=== PATIENT | female | born 1980 | race Two or more races ===

== ENCOUNTER 2022-02-19 14:09 | Outpatient (REF) | payer MEDICARE, MEDICAID, SELFPAY ==
[2022-02-19 14:34] LABS: MANUAL DIFF FLAG NO
[2022-02-19 14:59] LABS: Basophils Percent Auto 0.5 % (0-2); Eosinophils Absolute Auto 0.1 X10*3/uL (0.0-0.4); Eosinophils Percent Auto 1.1 % (0-4); Hematocrit 35.4 % (37.0-47.0); Imm Gran Abs Auto 0.02 X10*3/uL (0.00-0.03); Imm Gran Pct Auto 0.3 % (0.0-0.4); Lymphocytes Absolute Auto 1.1 X10*3/uL (1.2-4.9); Lymphocytes Percent Auto 16.8 % (20-40); Mean Corpuscular HGB Conc 31.1 g/dl (31.0-35.0); Mean Corpuscular Hemoglobin 24.2 pg (27.0-33.0); Mean Corpuscular Volume 77.8 fL (80.0-98.0); Mean Platelet Volume 10.9 fL (9.4-12.3); Monocytes Absolute Auto 0.4 X10*3/uL (0.1-1.2); Monocytes Percent Auto 5.7 % (2-11); Neutrophils Absolute Auto 4.8 x10*3/uL (2.0-8.3); Neutrophils Percent Auto 75.6 % (45-73); Platelet Count 229 X10*3/uL (160-400); Red Blood Count 4.55 X10*6/uL (4.20-5.50); Red Cell Distribution Width 14.7 % (11.0-16.0); White Blood Count 6.3 X10*3/uL (4.8-10.8)
[2022-02-19 15:16] LABS: Appearance Urine Clear; Color Urine Yellow; Glucose Urine UA Negative (Negative); Leukocyte Esterase Urine Negative (Negative); Nitrite Urine Negative (Negative); Specific Gravity - Urine 1.015 (1.005-1.025); Urine Blood Negative (Negative); Urine Ketones Negative (Negative); Urine Protein Negative (Neg-Trace)
[2022-02-19 15:19] LABS: Bacteria Urine None Seen (None Seen); Hyaline Casts Urine 0-2 /LPF (0-2); RBC Urine 0-2 /HPF (0-2); Squamous Epithelial Cell Urine 0-2 /HPF (0-2); WBC Urine 0-5 /HPF (0-5)
[2022-02-19 15:27] LABS: Alanine Aminotransferase 37 U/L (0-31); Albumin Level 4.4 g/dL (3.5-5.0); Alkaline Phosphatase 65 U/L (39-117); Anion Gap 15 (12-20); Aspartate Amino Transferase 28 U/L (5-31); Bilirubin Total 0.3 mg/dL (0.0-1.0); Blood Urea Nitrogen 16 mg/dL (9-16); C Reactive Protein 1.06 mg/dL (< or = 0.50); Calcium 9.5 mg/dL (8.4-10.2); Carbon Dioxide 20 mmol/L (22-29); Chloride 109 mmol/L (96-108); Estimated Glomerular Filt Rate > 60; Glucose Random 91 mg/dL (60-115); Potassium 4.2 mmol/L (3.3-5.1); Sodium 140 mmol/L (135-145); Total Protein 7.3 g/dL (6.5-8.0); Uric Acid 3.8 mg/dL (2.4-5.7)
[2022-02-19 16:01] LABS: Erythrocyte Sedimentation Rate 38 MM/HR (0-20)
[2022-02-19 16:35] LABS: Creatinine Urine 73.39 mg/dL; Total Protein Urine Random < 7 mg/dL (<12)
[2022-02-20 04:51] LABS: HBS Num1 3.46 mIU/mL (0-7.99); HBc Num1 0.07 S/CO (0.00-0.79); HBsAGNum1 0.28 S/CO (0.00-0.99); HIV AB/AG Nonreactive (Nonreactive); HIV Num 1 0.04 S/CO (0.00-0.99); Hepatitis A Antibody IgM 0.53 Index (0-0.79); Hepatitis B Core Antibody Nonreactive (Nonreactive); Hepatitis B Surface Antigen Negative (Negative); ~HepC Num1 0.15 S/CO (0.00-0.79); ~Hepatitis A Antibody IgM Nonreactive (Nonreactive); ~Hepatitis B Surface Antibody NONREACTIVE (Nonreactive); ~Hepatitis C Antibody Nonreactive (Nonreactive)
[2022-02-20 18:07] LABS: Complement C3 151 mg/dL (83-193)
[2022-02-22 01:27] LABS: TS Negative Control Passed; TS Panel A 0; TS Panel B 0; TS Positive Control Passed; TSpotTB Negative (Negative)
[2022-02-23 22:11] LABS: Anti DNA DS Antibody 1 IU/mL; Antibody to SS-A Antigen <1.0 NEG AI (<1.0 NEG); Antibody to SS-B Antigen <1.0 NEG AI (<1.0 NEG); SM/Ribonucleoprotein Ab <1.0 NEG AI (<1.0 NEG); Scleroderma 70 Antibody <1.0 NEG AI (<1.0 NEG); Smith Protein <1.0 NEG AI (<1.0 NEG)
[2022-02-23 22:17] LABS: Anti-Centromere B Antibodies <1.0 NEG AI (<1.0 NEG)
[2022-02-23 22:37] LABS: PTT (LAC) Screen 33 sec (<=40)
[2022-02-24 12:32] LABS: Cardiolipin IgG Ab <2.0 GPL-U/mL; Cardiolipin IgM Ab <2.0 MPL-U/mL
[2022-02-24 12:48] LABS: IgA 186 mg/dL (47-310); IgG 978 mg/dL (600-1640); IgM 111 mg/dL (50-300)
[2022-02-24 18:11] LABS: Prot Elec - Alpha1 0.3 g/dL (0.2-0.3); Prot Elec - Alpha2 0.8 g/dL (0.5-0.9); Prot Elec - Beta 1 0.5 g/dL (0.4-0.6); Prot Elec - Beta 2 0.4 g/dL (0.2-0.5); Prot Elec - Gamma 0.9 g/dL (0.8-1.7)
[2022-02-24 21:12] LABS: Beta-2 Glycoprotein IgA <2.0 U/mL (<20.0); Beta-2 Glycoprotein IgG <2.0 U/mL (<20.0); Beta-2 Glycoprotein IgM 3.7 U/mL (<20.0)
[2022-02-25 14:23] LABS: DNAds, Crithidia Antibody Negative (Negative)
[2022-02-28 19:10] LABS: TPMT Activity 10
== END 2022-02-19 14:10 | disposition home or self-care (01) ==
LOC: HO.LAB 14:09
PROVIDERS: Visit Provider Student in an Organized Health Care Education/Training Program
DX: Z11.59 Encounter for screening for other viral diseases (principal); Z11.4 Encounter for screening for human immunodeficiency virus [HIV]; Z11.7 Encounter for testing for latent tuberculosis infection; M32.9 Systemic lupus erythematosus, unspecified; Z79.624 Long term (current) use of inhibitors of nucleotide synthesis; Z79.899 Other long term (current) drug therapy
CPT/HCPCS: 36415; 80053; 81001; 82550; 82657; 82784; 84156; 84165; 84550; 85025; 85597; 85613; 85652; 85730; 86038; 86140; 86146; 86147; 86160; 86225; 86235; 86255; 86334; 86481; 86704; 86706; 86709; 86803; 87340; 87389; 99212

== ENCOUNTER → 2022-03-26 10:06 | Outpatient (BNVA) | payer MEDICARE, MEDICAID, SELFPAY | PROVIDERS: PCP Family Medicine; Referring Provider Family Medicine; Visit Provider Student in an Organized Health Care Education/Training Program | DX: M32.9 Systemic lupus erythematosus, unspecified (principal); M79.7 Fibromyalgia; Z51.81 Encounter for therapeutic drug level monitoring; Z79.624 Long term (current) use of inhibitors of nucleotide synthesis; Z79.899 Other long term (current) drug therapy | CPT/HCPCS: 99212 ==

== ENCOUNTER → 2022-04-21 09:16 | Outpatient (REF) | payer MEDICARE, MEDICAID, SELFPAY ==
--- NOTE | 2022-04-21 09:19 | CA_ITS ---
Transthoracic Echocardiogram Patient (Last, First, Middle): Yesenia Burroughs, Gender: Female Date of : 1980 Age: 42 Procedure Date: 04/21/2022 Procedure Type: Transthoracic Echocardiogram Location: OP Height: 157.48 cm Weight: 93.9 kg BSA: 1.94 m2 Heart Rate: bpm BP: 115 / 75 mmHg Logistics Supply Officer: ABAD Referring MD: Myles Lyman MD Inspector Elevators: Artem Christopher MD Symptoms: R07.9 - Chest pain, unspecified Study Quality: Fair ECG Rhythm: Sinus Conclusions: - Essentially normal study Findings Left Ventricle Normal left ventricular size, thickness, and systolic function. The visually estimated ejection fraction is between 65-70%. Spectral Doppler is indicative of a normal filling pattern. Peak GLS is -20.1%, within normal limits. Right Ventricle There is normal right ventricular systolic function. Atria The left atrium is normal in size. Interatrial shunt cannot be excluded. The right atrium was not well visualized. Aortic Valve The aortic valve structure and function is likely normal. There is no aortic valve stenosis. There is no aortic valve regurgitation. Mitral Valve Likely normal mitral valve structure and function. There is no mitral valve regurgitation. There is no mitral valve stenosis. Pulmonic Valve The pulmonic valve was not well visualized. Tricuspid Valve The tricuspid valve was not well visualized. Tricuspid regurgitation envelope is inadequate for calculation of right ventricular systolic pressure. Normal right atrial pressure. Great Vessels All visible segments of the aorta are normal in size. The pulmonary artery was not well visualized. Venous The inferior vena cava is normal in size and collapses greater than 50% with inspiration. Pericardium/Pleural There is no evidence of pericardial effusion. Prior Study Comparison No prior study available for comparison. Measurements 2D Linear Measurements IVSd: 0.89 0.6-0.9/0.6-1.0 cm LVIDd: 4.99 3.9-5.3/4.2-5.9 cm LVIDd Index: 2.57 2.4-3.2/2.2-3.1 cm/m2 LVIDs: 2.99 2.0-3.6 cm LVPWd: 0.96 0.7-1.1 cm LA Diam: 3.60 2.7-3.8/3.0-4.0 cm LAIDs Index: 1.86 1.5-2.3 cm/m2 LV Mass: 203.30 67-162/88-224 g LV Mass Index: 104.79 43-95/49-115 g/m2 LVOT Diam: 2.00 3.0+(-)1.3 cm 2D Systolic Function EF 4C: 68.40 >55% EF 2C: 70.10 >55% EF BiP: 69.20 >55% Mitral Valve MV Pk E: 0.69 MV PK A: 0.72 MV Decel Time: 246.00 E/A: 1.00 E'Lateral: 10.70 E'Medial: 7.07 E/E' Med: 9.80 E/E' Lat: 6.50 PHT: 72.00 MVA PHT: 3.06 Decel [place]: 2.82 Aortic Valve AoV Pk Juanjose: 1.30 AoV Mn Juanjose: 0.99 AoV VTI: 0.28 AoV Pk Grad: 7.00 Aov Mn Grad: 4.00 LOUIE Cont.VTI: 2.31 LVOT LVOT Pk Juanjose: 0.93 LVOT Mn Juanjose: 0.58 LVOT VTI: 0.20 LVOT Pk Grad: 3.00 LVOT Mn Grad: 2.00 LVOT Diam: 2.00 LVOT Area: 3.14 Diastolic Function MV Pk E: 0.69 MV Pk A: 0.72 E/A: 1.00 E'Medial: 7.07 E/E' Med: 9.80 E' Laterial: 10.70 E/E' Lat: 6.50 Right Ventricle TAPSE (mm): 23.80 TVS' Juanjose: 12.30 Tricuspid Valve RA Press: 3.00 Great Vessels Aorta Sinus of Valsalva: 3.19 2.0-3.[address] [place]: 2.67 1.7-3.4 cm Ao Asc: 3.00 2.1-3.4 cm Updated in Other Vendor System with Status of Final Artem Christopher MD electronically signed on 04/22/2022 4:05:44 PM with status of Final
== END ==
LOC: HO.CARD 09:16
PROVIDERS: Visit Provider Student in an Organized Health Care Education/Training Program
DX: R07.9 Chest pain, unspecified (principal)
CPT/HCPCS: 93306; 93356

== ENCOUNTER 2022-04-28 11:01 | Outpatient (REF) | payer MEDICARE, MEDICAID, SELFPAY ==
[2022-04-28 11:19] LABS: MANUAL DIFF FLAG NO
[2022-04-28 11:47] LABS: Basophils Percent Auto 0.8 % (0-2); Eosinophils Absolute Auto 0.1 X10*3/uL (0.0-0.4); Eosinophils Percent Auto 1.8 % (0-4); Hemoglobin 10.9 g/dl (12.0-16.0); Imm Gran Abs Auto 0.01 X10*3/uL (0.00-0.03); Imm Gran Pct Auto 0.3 % (0.0-0.4); Lymphocytes Percent Auto 25.5 % (20-40); Mean Corpuscular HGB Conc 31.1 g/dl (31.0-35.0); Mean Corpuscular Volume 76.9 fL (80.0-98.0); Monocytes Absolute Auto 0.2 X10*3/uL (0.1-1.2); Monocytes Percent Auto 5.8 % (2-11); Neutrophils Absolute Auto 2.5 x10*3/uL (2.0-8.3); Neutrophils Percent Auto 65.8 % (45-73); Platelet Count 283 X10*3/uL (160-400); Red Blood Count 4.55 X10*6/uL (4.20-5.50); Red Cell Distribution Width 15.9 % (11.0-16.0); White Blood Count 3.8 X10*3/uL (4.8-10.8)
[2022-04-28 12:26] LABS: Erythrocyte Sedimentation Rate 28 MM/HR (0-20)
[2022-04-28 13:02] LABS: Alanine Aminotransferase 37 U/L (0-31); Albumin Level 4.1 g/dL (3.5-5.0); Alkaline Phosphatase 64 U/L (39-117); Anion Gap 12 (12-20); Aspartate Amino Transferase 27 U/L (5-31); Bilirubin Total 0.3 mg/dL (0.0-1.0); Blood Urea Nitrogen 14 mg/dL (9-16); C Reactive Protein 0.75 mg/dL (< or = 0.50); Calcium 9.4 mg/dL (8.4-10.2); Carbon Dioxide 24 mmol/L (22-29); Chloride 107 mmol/L (96-108); Estimated Glomerular Filt Rate > 60; Glucose Random 143 mg/dL (60-115); Iron 44 mcg/dL (30-160); Percent Iron Saturation 13 % (15-50); Potassium 4.5 mmol/L (3.3-5.1); Sodium 138 mmol/L (135-145); Total Iron Binding Capacity 332 mcg/dL (228-428); Total Protein 6.9 g/dL (6.5-8.0); Unsaturated Iron Binding 288 ug/dL
[2022-04-28 13:08] LABS: Ferritin 11 ng/mL (10-250)
[2022-05-05 09:40] LABS: Transferrin 318 mg/dL (188-341)
== END 2022-04-28 11:02 | disposition home or self-care (01) ==
LOC: HO.LAB 11:01
PROVIDERS: PCP Family Medicine; Visit Provider Student in an Organized Health Care Education/Training Program
DX: D64.9 Anemia, unspecified (principal); M32.9 Systemic lupus erythematosus, unspecified; Z79.624 Long term (current) use of inhibitors of nucleotide synthesis
CPT/HCPCS: 36415; 80053; 82728; 83540; 84466; 85025; 85652; 86140

== ENCOUNTER 2022-07-09 09:47 | Outpatient (REF) | payer MEDICARE, MEDICAID, SELFPAY ==
[2022-07-09 10:58] LABS: MANUAL DIFF FLAG NO
[2022-07-09 12:13] LABS: Basophils Percent Auto 0.5 % (0-2); Eosinophils Absolute Auto 0.1 X10*3/uL (0.0-0.4); Eosinophils Percent Auto 1.8 % (0-4); Hemoglobin 11.5 g/dl (12.0-16.0); Imm Gran Abs Auto 0.02 X10*3/uL (0.00-0.03); Imm Gran Pct Auto 0.4 % (0.0-0.4); Lymphocytes Absolute Auto 1.1 X10*3/uL (1.2-4.9); Lymphocytes Percent Auto 20.7 % (20-40); Mean Corpuscular HGB Conc 31.1 g/dl (31.0-35.0); Mean Corpuscular Hemoglobin 24.3 pg (27.0-33.0); Mean Corpuscular Volume 78.2 fL (80.0-98.0); Mean Platelet Volume 11.8 fL (9.4-12.3); Monocytes Absolute Auto 0.4 X10*3/uL (0.1-1.2); Neutrophils Absolute Auto 3.8 x10*3/uL (2.0-8.3); Neutrophils Percent Auto 68.6 % (45-73); Platelet Count 255 X10*3/uL (160-400); Red Blood Count 4.73 X10*6/uL (4.20-5.50); Red Cell Distribution Width 17.5 % (11.0-16.0); White Blood Count 5.5 X10*3/uL (4.8-10.8)
[2022-07-09 12:38] LABS: Appearance Urine Clear; Color Urine Yellow; Glucose Urine UA Negative (Negative); Leukocyte Esterase Urine Negative (Negative); Nitrite Urine Negative (Negative); PH 5.5 (5.0-9.0); Urine Blood Negative (Negative); Urine Ketones Negative (Negative); Urine Protein Negative (Neg-Trace)
[2022-07-09 12:42] LABS: Troponin-I High Sensitivity < 3.5 ng/L (<3.5-17.0)
[2022-07-09 12:44] LABS: Bacteria Urine None Seen (None Seen); Hyaline Casts Urine 0-2 /LPF (0-2); RBC Urine 0-2 /HPF (0-2); Squamous Epithelial Cell Urine 0-2 /HPF (0-2); WBC Urine 0-5 /HPF (0-5)
[2022-07-09 12:50] LABS: Alanine Aminotransferase 30 U/L (0-31); Albumin Level 4.3 g/dL (3.5-5.0); Alkaline Phosphatase 50 U/L (39-117); Anion Gap 13 (12-20); Aspartate Amino Transferase 22 U/L (5-31); Bilirubin Total 0.3 mg/dL (0.0-1.0); Blood Urea Nitrogen 18 mg/dL (9-16); Calcium 9.1 mg/dL (8.4-10.2); Carbon Dioxide 21 mmol/L (22-29); Chloride 109 mmol/L (96-108); Estimated Glomerular Filt Rate > 60; Glucose Random 109 mg/dL (60-115); Potassium 4.6 mmol/L (3.3-5.1); Sodium 138 mmol/L (135-145)
[2022-07-09 12:52] LABS: Erythrocyte Sedimentation Rate 33 MM/HR (0-20)
[2022-07-09 13:08] LABS: Creatinine Urine 39.73 mg/dL; Total Protein Urine Random < 7 mg/dL (<12)
[2022-07-11 12:54] LABS: Complement C3 168 mg/dL (83-193)
[2022-07-13 12:19] LABS: Anti DNA DS Antibody <1 IU/mL
== END 2022-07-09 09:48 | disposition home or self-care (01) ==
LOC: HO.LAB 09:47
PROVIDERS: Student in an Organized Health Care Education/Training Program; PCP Family Medicine; Referring Provider Family Medicine; Visit Provider Internal Medicine Cardiovascular Disease
DX: R07.9 Chest pain, unspecified (principal); M32.9 Systemic lupus erythematosus, unspecified; Z79.624 Long term (current) use of inhibitors of nucleotide synthesis
CPT/HCPCS: 36415; 80053; 81001; 84156; 84484; 85025; 85652; 86140; 86160; 86225; 93005; 99202

== ENCOUNTER → 2022-07-24 09:43 | Outpatient (BNVA) | payer MEDICARE, MEDICAID, SELFPAY | PROVIDERS: PCP Family Medicine; Visit Provider Student in an Organized Health Care Education/Training Program | DX: M32.9 Systemic lupus erythematosus, unspecified (principal); R21 Rash and other nonspecific skin eruption; M79.7 Fibromyalgia; Z51.81 Encounter for therapeutic drug level monitoring; Z79.624 Long term (current) use of inhibitors of nucleotide synthesis; Z79.899 Other long term (current) drug therapy | CPT/HCPCS: 99212 ==

== ENCOUNTER 2022-12-15 14:06 | Outpatient (REF) | payer MEDICARE, MEDICAID, SELFPAY ==
[2022-12-15 14:21] LABS: MANUAL DIFF FLAG NO
[2022-12-15 14:44] LABS: Basophils Percent Auto 0.4 % (0-2); Eosinophils Absolute Auto 0.1 X10*3/uL (0.0-0.4); Eosinophils Percent Auto 1.8 % (0-4); Hematocrit 35.2 % (37.0-47.0); Hemoglobin 11.4 g/dl (12.0-16.0); Imm Gran Abs Auto 0.01 X10*3/uL (0.00-0.03); Imm Gran Pct Auto 0.1 % (0.0-0.4); Lymphocytes Absolute Auto 1.2 X10*3/uL (1.2-4.9); Lymphocytes Percent Auto 17.8 % (20-40); Mean Corpuscular HGB Conc 32.4 g/dl (31.0-35.0); Mean Corpuscular Hemoglobin 24.7 pg (27.0-33.0); Mean Corpuscular Volume 76.2 fL (80.0-98.0); Mean Platelet Volume 11.7 fL (9.4-12.3); Monocytes Absolute Auto 0.4 X10*3/uL (0.1-1.2); Monocytes Percent Auto 6.4 % (2-11); Neutrophils Absolute Auto 4.9 x10*3/uL (2.0-8.3); Neutrophils Percent Auto 73.5 % (45-73); Platelet Count 240 X10*3/uL (160-400); Red Blood Count 4.62 X10*6/uL (4.20-5.50); Red Cell Distribution Width 16.3 % (11.0-16.0); White Blood Count 6.7 X10*3/uL (4.8-10.8)
[2022-12-15 15:18] LABS: Alanine Aminotransferase 25 U/L (0-31); Alkaline Phosphatase 59 U/L (39-117); Anion Gap 11 (12-20); Aspartate Amino Transferase 21 U/L (5-31); Bilirubin Total 0.3 mg/dL (0.0-1.0); Blood Urea Nitrogen 20 mg/dL (9-16); Carbon Dioxide 23 mmol/L (22-29); Chloride 112 mmol/L (96-108); Estimated Glomerular Filt Rate > 60; Glucose Random 129 mg/dL (60-115); Potassium 4.1 mmol/L (3.3-5.1); Sodium 142 mmol/L (135-145); Total Protein 7.2 g/dL (6.5-8.0)
[2022-12-15 15:25] LABS: Erythrocyte Sedimentation Rate 34 MM/HR (0-20)
[2022-12-16 12:53] LABS: Anti DNA DS Antibody <1 IU/mL
[2022-12-17 15:38] LABS: Complement C3 179 mg/dL (83-193)
== END 2022-12-15 14:07 | disposition home or self-care (01) ==
LOC: HO.LAB 14:06
PROVIDERS: PCP Family Medicine; Visit Provider Student in an Organized Health Care Education/Training Program
DX: M32.9 Systemic lupus erythematosus, unspecified (principal)
CPT/HCPCS: 36415; 80053; 85025; 85652; 86140; 86160; 86225

== ENCOUNTER 2022-12-16 16:43 | Outpatient (REF) | payer MEDICARE, MEDICAID, SELFPAY ==
[2022-12-16 17:32] LABS: Appearance Urine Clear; Color Urine Yellow; Glucose Urine UA Negative (Negative); Leukocyte Esterase Urine Negative (Negative); Nitrite Urine Negative (Negative); Specific Gravity - Urine <= 1.005 (1.005-1.025); UMIC TRIGGER UA YES; Urine Blood Moderate (2+) (Negative); Urine Ketones Negative (Negative); Urine Protein Negative (Neg-Trace)
[2022-12-16 17:45] LABS: Creatinine Urine 22.65 mg/dL; Total Protein Urine Random < 7 mg/dL (<12)
[2022-12-16 17:59] LABS: Bacteria Urine None Seen (None Seen); Hyaline Casts Urine 0-2 /LPF (0-2); RBC Urine 0-2 /HPF (0-2); Squamous Epithelial Cell Urine 0-2 /HPF (0-2); WBC Urine 0-5 /HPF (0-5)
== END 2022-12-16 16:44 | disposition home or self-care (01) ==
LOC: HO.LNP 16:43
PROVIDERS: Visit Provider Student in an Organized Health Care Education/Training Program
DX: M32.9 Systemic lupus erythematosus, unspecified (principal)
CPT/HCPCS: 81001; 84156

== ENCOUNTER 2022-12-24 13:34 | Outpatient (AMB) | payer MEDICARE, MEDICAID, SELFPAY ==
--- NOTE | 2022-12-24 13:37 | MHC.OFFVIS ---
Intake Vital Signs 12/24/22 13:39 Height 5 ft 2 in Weight 197 lb 5.019 oz BMI 36.1 BP 104/62 Blood Pressure Location Rt brachial Position Sitting Pulse 93 Pulse Source Pulse Oximeter Temp 98.4 F Temp Source Skin Pulse Oximetry (%) 99 Intake Visit Reasons: SLE Intake Note: Pt seen today for SLE follow up. C/o left sided pain Quality Assurance Supervisor Final Required: No Accompanied by: Significant Other Allergies MORPHINE Allergy (Intermediate, Uncoded 12/24/22 13:42) Palpitations Medication List - Last Reconciled 12/24/22 by Myles Lyman MD albuterol sulfate 2.5 mg inhalation Q4-6H PRN atorvastatin 80 mg PO DAILY azathioprine 150 mg (3 x 50 mg) PO DAILY clotrimazole-betamethasone 1-0.05 % 1 appl topical BID 2 weeks cyclobenzaprine 10 mg PO BEDTIME hydroxychloroquine (Plaquenil) 200 mg PO BID omeprazole 40 mg PO DAILY oxycodone-acetaminophen 5-325 mg 1 tab PO Q6H PRN pramipexole 0.125 mg PO TID pregabalin 50 mg PO BID semaglutide (Rybelsus) 7 mg PO DAILY sertraline 100 mg PO DAILY topiramate 25 mg PO BID HPI HPI Comments History of Present Illness Details 42-year-old female with SLE returns for follow-up. About 3 weeks ago she started having pain in the left side of her body particularly the top of her left shoulder, left buttock pain radiating towards her thigh, pain and swelling in the left thenar area. She went to the emergency room 3 weeks ago and had x-rays done, Medrol Dosepak was prescribed with some improvement. Patient continues to have the same pain. Initial history: The patient returns for follow-up after completion of her diagnostic workup. She stated that about 1 week ago she started having left-sided chest pain radiating to her left shoulder. The pain is worse when she takes a shower and tries to relax. The pain is not exacerbated with exertion. She stated she had similar chest pain about a year ago in February 2021, she went to her PCP and had similar chest pain. She was referred for an exercise EKG stress test which was unremarkable. She has had left upper quadrant abdominal pain for more than 1 year. She had an abdominal ultrasound last year which showed mild splenomegaly. Initial history: This is 41-year-old female with a complex past medical history including SLE diagnosed around 2016 with malar rash, positive CHIKIS fatigue and body aches. She was being seen by Dr. Peterson at [place]. Last seen in 2020. she had been on hydroxychloroquine 1 tablet twice daily For 3 years as well as azathioprine but she is unsure how long she has been on azathioprine. she does get her eyes checked yearly for Plaquenil screening. Patient states she has chronic diffuse body aches most severe pain is in her lower back. lidocaine patch helps. She is on pregabalin as well. She denies any recent rashes, oral ulcers, blood or froth in urine. She also mentions her hands turning blue in the cold. This also started around the time she was diagnosed with lupus. Denies any history of digital ulcers. No history of DVT/ PE [facility] Medical History Anxiety Asthma Carpal tunnel syndrome Depression Dyslipidemia Fibromyalgia, primary Gastroparesis GERD (gastroesophageal reflux disease) Lumbar spinal stenosis Migraine Obstructive sleep apnea Restless leg syndrome SLE (systemic lupus erythematosus) Type 2 diabetes mellitus Surgical History delivery delivered Family History Mother Cataract Glaucoma Arthritis Breast cancer Maternal Grandfather Asthma Myocardial infarct Paternal Grandfather Coronary artery disease Social History Household Members: Significant Other Housing: House Alcohol intake: never Patient Tobacco Use Status: Former Tobacco user Years Smoked: quit 18 years ago e-Cigarette/Vaping Use: Never Used service: No Current occupational status: disabled Current occupation: Formerly worked in [employer] Review of Systems Musc Reports back pain, Reports arthralgias, Reports joint swelling and Reports radiating pain into limb Physical Exam Vital Signs: Last Vital Signs Temp 98.4 F 12/24/22 13:39 Pulse 93 12/24/22 13:39 BP 104/62 12/24/22 13:39 Pulse Ox 99 12/24/22 13:39 BMI result Body Mass Index 36.1 Const General: cooperative and healthy appearing Nutritional Appearance: obese morbidly obese Orientation/consciousness: patient oriented x3 Limitations: no limitations HEENT Head: Yes normocephalic and Yes atraumatic Resp Effort & Inspection: normal respiratory effort and able to speak in complete sentences Auscultation: clear to auscultation bilaterally Cardio Rate: regular rate Rhythm: regular rhythm Heart sounds: S1 normal heart sound present and S2 normal heart sound present GI Inspection: No distended Palpation (GI): Soft to palpation and nontender Skin Other: Skin rashes on her left foot have resolved Neuro General: patient oriented x3 Extrem Other: normal nail fold capillaroscopy Pain in the left subacromial area Painful range of motion of left shoulder Left buttock tenderness and pain with straight leg raise test few fibromyalgia tender point Results Reviewed Results Reviewed: X-RAY EXAM OF SHOULDER, COMPLETE Exam Date: 12/22/2022 10:30 AM Ordering Diagnosis: Left shoulder pain, unspecified chronicity ? X-RAY EXAM OF LEFT SHOULDER, COMPLETE ? Reason: left posterior shoulder pain ? Comparison: Radiographs of the left shoulder, April 08, 2017. ? FINDINGS: No fracture. Normal alignment. Normal joint spaces. No soft tissue swelling. ? IMPRESSION IMPRESSION: Normal joint spaces. X-RAY EXAM OF LOWER SPINE WITH OBLIQUES Exam Date: 12/22/2022 10:30 AM Ordering Diagnosis: Spinal stenosis of lumbar region, unspecified whether neurogenic claudication present ? X-RAY EXAM OF LOWER SPINE WITH OBLIQUES ? Reason: left lower back pain, radiating to L hip and LLE, history of lumbar stenosis ? Comparison: Radiographs on July 22, 2012. ? FINDINGS: Minimal grade 1 retrolisthesis of L3 on L4. Vertebral body heights are maintained. Mild disc space narrowing and marginal osteophytes at L3-L4. Sacroiliac joints are intact. ? IMPRESSION IMPRESSION: Mild degenerative changes at L3-L4. X-RAY EXAM OF HAND, 3+ VIEWS Exam Date: 12/22/2022 10:29 AM Ordering Diagnosis: Hand pain, left ? X-RAY EXAM OF LEFT HAND, 3+ VIEWS ? Reason: left hand/thumb pain, numbness, hx carpal tunnel ? Comparison: None ? FINDINGS: No fracture. No subluxation. Negative ulnar variance. Normal joint spaces. No soft tissue swelling. ? IMPRESSION IMPRESSION: No fracture or dislocation. RADEX HIP UNILATERAL WITH PELVIS 2-3 VIEWS Exam Date: 12/22/2022 10:28 AM Ordering Diagnosis: Pain of left hip ? RADEX HIP UNILATERAL LEFT WITH PELVIS 2-3 VIEWS ? Reason: L hip pain ? Comparison: Radiographs of the sacroiliac joints on September 08, 2012. ? FINDINGS: ? Pelvis: No displaced fracture. Mild degenerative changes of the bilateral sacroiliac joints. Intact pubic symphysis. Frontal evaluation of the right hip demonstrates normal joint space. ? Left hip: No displaced fracture. Normal alignment. Normal joint space. ? IMPRESSION IMPRESSION: No displaced fracture. Assessment & Plan Assessment & Plan (1) SLE (systemic lupus erythematosus): Comment: dx 2017 ( CHIKIS 1-640 homogeneous, malar rash, oral ulcers, fatigue body aches) on HCQ +AZA since 2016 AZA dose increased to 150 mg 04/16 Code(s): M32.9 - Systemic lupus erythematosus, unspecified Qualifiers: Systemic lupus erythematosus type: unspecified Systemic lupus erythematosus organ involvement: unspecified Qualified Code(s): M32.9 - Systemic lupus erythematosus, unspecified Plan: This is 42-year-old female with SLE presents for follow-up. Doing well overall. I do not see any signs of active disease. Her lupus serology labs are unremarkable. She has normal complements, negative dsDNA and no proteinuria. Continue hydroxychloroquine 200 mg Twice daily and azathioprine 150 mg daily Labs before next visit in 3 months (2) Subacromial bursitis of left shoulder joint: Code(s): M75.52 - Bursitis of left shoulder Plan: Patient's acute complaint today is left shoulder pain and left buttock pain, likely subacromial bursitis of left shoulder and left pyriformis syndrome/sciatica. Will prescribe a prednisone taper. Patient stated that she was referred to physiatry by her PCP. Patient was not interested in a steroid injection for her left shoulder (3) Piriformis syndrome of left side: Code(s): G57.02 - Lesion of sciatic nerve, left lower limb Plan: As above (4) Skin rash: Code(s): R21 - Rash and other nonspecific skin eruption Plan: This was seen last visit, likely it was a fungal rash. 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 Patient has no leukopenia on follow-up. Continue azathioprine 150 mg daily (6) Encounter for monitoring of hydroxychloroquine therapy: Code(s): Z51.81 - Encounter for therapeutic drug level monitoring; Z79.899 - Other long term care administrator (current) drug therapy Plan: currently on 400 mg daily. Discussed with patient potential side effects hydroxychloroquine including retinal toxicity. Patient gets evaluated by Ophthalmology every year. She will make an appointment for Ophthalmology for this year (7) Fibromyalgia, primary: Code(s): M79.7 - Fibromyalgia Plan I spent 46 minutes reviewing patient's chart, evaluating patient, ordering diagnostic workup, counseling patient and documenting in the chart Orders: Orders Complement C3 3 Months M32.9 - Systemic lupus erythematosus, unspecified Anti DNA DS Antibody 3 Months M32.9 - Systemic lupus erythematosus, unspecified Erythrocyte Sedimentation Rate 3 Months M32.9 - Systemic lupus erythematosus, unspecified Complement C4 3 Months M32.9 - Systemic lupus erythematosus, unspecified Protein Creatinine Ratio, Ur 3 Months M32.9 - Systemic lupus erythematosus, unspecified UA w Microscopic 3 Months M32.9 - Systemic lupus erythematosus, unspecified Complete Blood Count Auto Diff 3 Months M32.9 - Systemic lupus erythematosus, unspecified Comprehensive Met. Panel 3 Months M32.9 - Systemic lupus erythematosus, unspecified Medications: New prednisone Take 3 tabs by mouth once daily with breakfast for 1 week then 2 tabs daily for 1 week then 1 tab daily for 1 week then stop 42 tabs 0RF Coding Level of Care Code Est Pt Level 5 (20193) Diagnoses SLE (systemic lupus erythematosus) M32.9 Systemic lupus erythematosus type: unspecified Systemic lupus erythematosus organ involvement: unspecified Subacromial bursitis of left shoulder joint M75.52 Piriformis syndrome of left side G57.02 Skin rash R21 Encounter for monitoring azathioprine therapy Z51.81; Z79.624 Encounter for monitoring of hydroxychloroquine therapy Z51.81; Z79.899 Fibromyalgia, primary M79.7
[2022-12-24 13:39] VITALS: BP 104/62; PULSE 93; TEMP 36.9; O2SAT 99; BMI 36.1
== END 2022-12-24 14:20 | disposition home or self-care (01) ==
PROVIDERS: PCP Family Medicine; Visit Provider Student in an Organized Health Care Education/Training Program
DX: M32.9 Systemic lupus erythematosus, unspecified (principal); M75.52 Bursitis of left shoulder; G57.02 Lesion of sciatic nerve, left lower limb; R21 Rash and other nonspecific skin eruption; Z51.81 Encounter for therapeutic drug level monitoring; Z79.624 Long term (current) use of inhibitors of nucleotide synthesis; Z79.899 Other long term (current) drug therapy; M79.7 Fibromyalgia
CPT/HCPCS: 99215

== ENCOUNTER → 2022-12-24 13:34 | Outpatient (BNVA) | payer MEDICARE, MEDICAID, SELFPAY | PROVIDERS: Visit Provider Student in an Organized Health Care Education/Training Program | DX: M32.9 Systemic lupus erythematosus, unspecified (principal); M75.52 Bursitis of left shoulder; G57.02 Lesion of sciatic nerve, left lower limb; R21 Rash and other nonspecific skin eruption; M79.7 Fibromyalgia; Z79.624 Long term (current) use of inhibitors of nucleotide synthesis; Z79.899 Other long term (current) drug therapy | CPT/HCPCS: 99212 ==

== ENCOUNTER 2023-03-22 12:01 | Outpatient (REF) | payer MEDICARE, MEDICAID, SELFPAY ==
[2023-03-22 12:22] LABS: MANUAL DIFF FLAG NO
[2023-03-22 12:45] LABS: Basophils Percent Auto 0.4 % (0-2); Eosinophils Absolute Auto 0.1 X10*3/uL (0.0-0.4); Eosinophils Percent Auto 2.6 % (0-4); Hematocrit 38.2 % (37.0-47.0); Hemoglobin 12.1 g/dl (12.0-16.0); Imm Gran Abs Auto 0.01 X10*3/uL (0.00-0.03); Imm Gran Pct Auto 0.2 % (0.0-0.4); Lymphocytes Percent Auto 19.7 % (20-40); Mean Corpuscular HGB Conc 31.7 g/dl (31.0-35.0); Mean Corpuscular Hemoglobin 24.8 pg (27.0-33.0); Mean Corpuscular Volume 78.4 fL (80.0-98.0); Mean Platelet Volume 11.1 fL (9.4-12.3); Monocytes Absolute Auto 0.4 X10*3/uL (0.1-1.2); Neutrophils Absolute Auto 3.5 x10*3/uL (2.0-8.3); Neutrophils Percent Auto 69.1 % (45-73); Platelet Count 225 X10*3/uL (160-400); Red Blood Count 4.87 X10*6/uL (4.20-5.50); Red Cell Distribution Width 15.2 % (11.0-16.0)
[2023-03-22 13:20] LABS: Alanine Aminotransferase 33 U/L (0-31); Alkaline Phosphatase 61 U/L (39-117); Anion Gap 11 (12-20); Aspartate Amino Transferase 23 U/L (5-31); Bilirubin Total 0.2 mg/dL (0.0-1.0); Blood Urea Nitrogen 13 mg/dL (9-16); Calcium 9.5 mg/dL (8.4-10.2); Carbon Dioxide 24 mmol/L (22-29); Chloride 107 mmol/L (96-108); Estimated Glomerular Filt Rate > 60; Glucose Random 162 mg/dL (60-115); Potassium 3.9 mmol/L (3.3-5.1); Sodium 138 mmol/L (135-145); Total Protein 7.3 g/dL (6.5-8.0)
[2023-03-22 13:44] LABS: Appearance Urine Clear; Color Urine Yellow; Glucose Urine UA 500 mg/dL (Negative); Leukocyte Esterase Urine Negative (Negative); Nitrite Urine Negative (Negative); PH 5.5 (5.0-9.0); Specific Gravity - Urine 1.025 (1.005-1.025); Urine Blood Negative (Negative); Urine Ketones Negative (Negative); Urine Protein Negative (Neg-Trace)
[2023-03-22 13:46] LABS: Bacteria Urine None Seen (None Seen); Hyaline Casts Urine 0-2 /LPF (0-2); RBC Urine 0-2 /HPF (0-2); Squamous Epithelial Cell Urine 0-2 /HPF (0-2); WBC Urine 0-5 /HPF (0-5)
[2023-03-22 13:51] LABS: Erythrocyte Sedimentation Rate 30 MM/HR (0-20)
[2023-03-22 14:26] LABS: Creatinine Urine 175.52 mg/dL; Protein/Creatinine Ratio, Ur 0.06 (<0.2); Total Protein Urine Random 10 mg/dL (<12)
[2023-03-23 12:53] LABS: Complement C3 170 mg/dL (83-193)
[2023-03-23 21:23] LABS: Anti DNA DS Antibody <1 IU/mL
== END 2023-03-22 12:02 | disposition home or self-care (01) ==
LOC: HO.LAB 12:01
PROVIDERS: Visit Provider Student in an Organized Health Care Education/Training Program
DX: M32.9 Systemic lupus erythematosus, unspecified (principal)
CPT/HCPCS: 36415; 80053; 81001; 82570; 84156; 85025; 85652; 86160; 86225

== ENCOUNTER 2023-03-24 09:41 | Outpatient (AMB) | payer MEDICARE, MEDICAID, SELFPAY ==
--- NOTE | 2023-03-24 09:47 | MHC.OFFVIS ---
Intake Vital Signs 03/24/23 09:49 Height 5 ft 2 in Weight 201 lb 11.567 oz BMI 36.9 BP 112/68 Blood Pressure Location Rt brachial Position Sitting Pulse 88 Pulse Source Pulse Oximeter Temp 96.7 F L Temp Source Skin Pulse Oximetry (%) 99 Oxygen Delivery Method Room Air Intake Visit Reasons: SLE Intake Note: Pt last seen 12/24/22, presents today for follow up and test results. Was prescribed prednisone taper, and she completed this. Continues with plaquenil 200mg bid and azathioprine 150mg daily. Reports cortisone injections x2 with PSS and needs to go back for another one. Chairman And Ceo Required: No Accompanied by: Significant Other Allergies MORPHINE Allergy (Intermediate, Uncoded 03/24/23 09:52) Palpitations Medication List - Last Reconciled 03/24/23 by Myles Lyman MD albuterol sulfate 2.5 mg inhalation Q4-6H PRN atorvastatin 80 mg PO DAILY azathioprine 150 mg (3 x 50 mg) PO DAILY clotrimazole-betamethasone 1-0.05 % 1 appl topical BID 2 weeks cyclobenzaprine 10 mg PO BEDTIME hydroxychloroquine (Plaquenil) 200 mg PO BID omeprazole 40 mg PO DAILY oxycodone-acetaminophen 5-325 mg 1 tab PO Q6H PRN pramipexole 0.125 mg PO TID prednisone Take 3 tabs by mouth once daily with breakfast for 1 week then 2 tabs daily for 1 week then 1 tab daily for 1 week then stop pregabalin 50 mg PO BID semaglutide (Rybelsus) 7 mg PO DAILY sertraline 100 mg PO DAILY topiramate 25 mg PO BID HPI HPI Comments History of Present Illness Details 43-year-old female with SLE returns for follow-up. She is on hydroxychloroquine 400 mg daily and azathioprine 150 mg daily. She was recently evaluated by PSS and received 2 injections in her lumbar spine which were not helpful. She continues to have pain in her lower lumbar spine, left buttock and left thigh. She states that she is scheduled for SI joint injections. Patient states that otherwise, she feels about the same overall. She has no new complaints. Initial history: The patient returns for follow-up after completion of her diagnostic workup. She stated that about 1 week ago she started having left-sided chest pain radiating to her left shoulder. The pain is worse when she takes a shower and tries to relax. The pain is not exacerbated with exertion. She stated she had similar chest pain about a year ago in February 2021, she went to her PCP and had similar chest pain. She was referred for an exercise EKG stress test which was unremarkable. She has had left upper quadrant abdominal pain for more than 1 year. She had an abdominal ultrasound last year which showed mild splenomegaly. Initial history: This is 41-year-old female with a complex past medical history including SLE diagnosed around 2016 with malar rash, positive CHIKIS fatigue and body aches. She was being seen by Dr. Peterson at [place]. Last seen in 2020. she had been on hydroxychloroquine 1 tablet twice daily For 3 years as well as azathioprine but she is unsure how long she has been on azathioprine. she does get her eyes checked yearly for Plaquenil screening. Patient states she has chronic diffuse body aches most severe pain is in her lower back. lidocaine patch helps. She is on pregabalin as well. She denies any recent rashes, oral ulcers, blood or froth in urine. She also mentions her hands turning blue in the cold. This also started around the time she was diagnosed with lupus. Denies any history of digital ulcers. No history of DVT/ PE [facility] Medical History Migraine Asthma Dyslipidemia Obstructive sleep apnea Carpal tunnel syndrome Depression Anxiety Gastroparesis Fibromyalgia, primary Lumbar spinal stenosis GERD (gastroesophageal reflux disease) Type 2 diabetes mellitus SLE (systemic lupus erythematosus) Restless leg syndrome Surgical History delivery delivered Family History Mother Cataract Glaucoma Arthritis Breast cancer Maternal Grandfather Asthma Myocardial infarct Paternal Grandfather Coronary artery disease Social History Household Members: Significant Other Housing: House Alcohol intake: never Patient Tobacco Use Status: Former Tobacco user Years Smoked: quit 18 years ago e-Cigarette/Vaping Use: Never Used service: No Current occupational status: disabled Current occupation: Formerly worked in [place] [facility] [facility] [place] Reports back pain, Reports arthralgias and Reports radiating pain into limb Physical Exam Vital Signs: Last Vital Signs Temp 96.7 F L 03/24/23 09:49 Pulse 88 03/24/23 09:49 BP 112/68 03/24/23 09:49 Pulse Ox 99 03/24/23 09:49 Oxygen Delivery Method Room Air 03/24/23 09:49 BMI result Body Mass Index 36.9 Const General: cooperative and healthy appearing Nutritional Appearance: obese morbidly obese Limitations: no limitations HEENT Head: Yes normocephalic and Yes atraumatic Resp Effort & Inspection: normal respiratory effort and able to speak in complete sentences Extrem Other: normal nail fold capillaroscopy Tenderness in the right and left subacromial bursa area Painful range of motion of left shoulder Left buttock tenderness and pain with straight leg raise test Multiple fibromyalgia tender points Results Reviewed Results Reviewed: X-RAY EXAM OF SHOULDER, COMPLETE Exam Date: 12/22/2022 10:30 AM Ordering Diagnosis: Left shoulder pain, unspecified chronicity ? X-RAY EXAM OF LEFT SHOULDER, COMPLETE ? Reason: left posterior shoulder pain ? Comparison: Radiographs of the left shoulder, April 08, 2017. ? FINDINGS: No fracture. Normal alignment. Normal joint spaces. No soft tissue swelling. ? IMPRESSION IMPRESSION: Normal joint spaces. X-RAY EXAM OF LOWER SPINE WITH OBLIQUES Exam Date: 12/22/2022 10:30 AM Ordering Diagnosis: Spinal stenosis of lumbar region, unspecified whether neurogenic claudication present ? X-RAY EXAM OF LOWER SPINE WITH OBLIQUES ? Reason: left lower back pain, radiating to L hip and LLE, history of lumbar stenosis ? Comparison: Radiographs on July 22, 2012. ? FINDINGS: Minimal grade 1 retrolisthesis of L3 on L4. Vertebral body heights are maintained. Mild disc space narrowing and marginal osteophytes at L3-L4. Sacroiliac joints are intact. ? IMPRESSION IMPRESSION: Mild degenerative changes at L3-L4. X-RAY EXAM OF HAND, 3+ VIEWS Exam Date: 12/22/2022 10:29 AM Ordering Diagnosis: Hand pain, left ? X-RAY EXAM OF LEFT HAND, 3+ VIEWS ? Reason: left hand/thumb pain, numbness, hx carpal tunnel ? Comparison: None ? FINDINGS: No fracture. No subluxation. Negative ulnar variance. Normal joint spaces. No soft tissue swelling. ? IMPRESSION IMPRESSION: No fracture or dislocation. RADEX HIP UNILATERAL WITH PELVIS 2-3 VIEWS Exam Date: 12/22/2022 10:28 AM Ordering Diagnosis: Pain of left hip ? RADEX HIP UNILATERAL LEFT WITH PELVIS 2-3 VIEWS ? Reason: L hip pain ? Comparison: Radiographs of the sacroiliac joints on September 08, 2012. ? FINDINGS: ? Pelvis: No displaced fracture. Mild degenerative changes of the bilateral sacroiliac joints. Intact pubic symphysis. Frontal evaluation of the right hip demonstrates normal joint space. ? Left hip: No displaced fracture. Normal alignment. Normal joint space. ? IMPRESSION IMPRESSION: No displaced fracture. Assessment & Plan Assessment & Plan (1) SLE (systemic lupus erythematosus): Comment: dx 2016 ( CHIKIS 1-640 homogeneous, malar rash, oral ulcers, fatigue body aches) on HCQ +AZA since 2016 AZA dose increased to 150 mg 04/16 Code(s): M32.9 - Systemic lupus erythematosus, unspecified Qualifiers: Systemic lupus erythematosus type: unspecified Systemic lupus erythematosus organ involvement: unspecified Qualified Code(s): M32.9 - Systemic lupus erythematosus, unspecified Plan: This is 43-year-old female with SLE presents for follow-up. Doing well overall. I do not see any signs of active disease. Her lupus serology labs are unremarkable. She has normal complements, negative dsDNA and no proteinuria. Continue hydroxychloroquine 200 mg Twice daily and azathioprine 150 mg daily. 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 Patient has no leukopenia on follow-up. Patient minimal ALT elevation that fluctuates. This was before azathioprine dose was increased from 100 mg to 150 mg daily. Will continue to monitor her LFTs. Will consider reducing her azathioprine to 100 mg daily. For now Continue azathioprine 150 mg daily (3) Encounter for monitoring of hydroxychloroquine therapy: Code(s): Z51.81 - Encounter for therapeutic drug level monitoring; Z79.899 - Other [facility] (current) drug therapy Plan: currently on 400 mg daily. Discussed with patient potential side effects hydroxychloroquine including retinal toxicity. Patient gets evaluated by Ophthalmology every year. Patient states that she was evaluated by an family program specialist this year. She does not recall her name. She states that she will go home and look through her records and let us know her name so we can retrieve records (4) Fibromyalgia, primary: Code(s): M79.7 - Fibromyalgia Plan: On Lyrica 50 mg Twice daily prescribed by PCP (5) Immunization counseling: Code(s): Z71.85 - Encounter for immunization safety counseling Plan: Patient states that she received the initial COVID series and 1 booster. She is not interested in any other COVID boosters. She received the flu vaccine for this season Plan I spent 45 minutes reviewing patient's chart, evaluating patient, ordering diagnostic workup, counseling patient and documenting in the chart Orders: Orders Comprehensive Met. Panel 3 Months Z51.81 - Encounter for therapeutic drug level monitoring, Z79.624 - extermination supervisor (current) use of inhibitors of nucleotide synthesis C Reactive Protein 3 Months Z51.81 - Encounter for therapeutic drug level monitoring, Z79.624 - extermination supervisor (current) use of inhibitors of nucleotide synthesis Protein Creatinine Ratio, Ur 3 Months Z51.81 - Encounter for therapeutic drug level monitoring, Z79.624 - nursing home (current) use of inhibitors of nucleotide synthesis UA w Microscopic 3 Months Z51.81 - Encounter for therapeutic drug level monitoring, Z79.624 - nursing home (current) use of inhibitors of nucleotide synthesis Complete Blood Count Auto Diff 3 Months Z51.81 - Encounter for therapeutic drug level monitoring, Z79.624 - nursing home (current) use of inhibitors of nucleotide synthesis Erythrocyte Sedimentation Rate 3 Months Z51.81 - Encounter for therapeutic drug level monitoring, Z79.624 - nursing home (current) use of inhibitors of nucleotide synthesis Anti DNA DS Antibody 3 Months Z51.81 - Encounter for therapeutic drug level monitoring, Z79.624 - extermination supervisor (current) use of inhibitors of nucleotide synthesis Complement C3 3 Months Z51.81 - Encounter for therapeutic drug level monitoring, Z79.624 - extermination supervisor (current) use of inhibitors of nucleotide synthesis Complement C4 3 Months Z51.81 - Encounter for therapeutic drug level monitoring, Z79.624 - nursing home (current) use of inhibitors of nucleotide synthesis Coding Level of Care Code Est Pt Level 5 (38704) Diagnoses Systemic lupus erythematosus, unspecified SLE type, unspecified organ involvement status M32.9 Systemic lupus erythematosus type: unspecified Systemic lupus erythematosus organ involvement: unspecified Encounter for monitoring azathioprine therapy Z51.81; Z79.624 Encounter for monitoring of hydroxychloroquine therapy Z51.81; Z79.899 Fibromyalgia, primary M79.7 Immunization counseling Z71.85
[2023-03-24 09:49] VITALS: BP 112/68; PULSE 88; TEMP 35.9; O2SAT 99; BMI 36.9
== END 2023-03-24 10:12 | disposition home or self-care (01) ==
PROVIDERS: PCP Family Medicine; Visit Provider Student in an Organized Health Care Education/Training Program
DX: M32.9 Systemic lupus erythematosus, unspecified (principal); M79.7 Fibromyalgia; Z51.81 Encounter for therapeutic drug level monitoring; Z79.624 Long term (current) use of inhibitors of nucleotide synthesis; Z79.899 Other long term (current) drug therapy; Z71.85 Encounter for immunization safety counseling
CPT/HCPCS: 99215

== ENCOUNTER → 2023-03-24 09:41 | Outpatient (BNVA) | payer MEDICARE, MEDICAID, SELFPAY | PROVIDERS: PCP Family Medicine; Visit Provider Student in an Organized Health Care Education/Training Program | DX: M32.9 Systemic lupus erythematosus, unspecified (principal); Z51.81 Encounter for therapeutic drug level monitoring; M79.7 Fibromyalgia; Z79.624 Long term (current) use of inhibitors of nucleotide synthesis; Z71.85 Encounter for immunization safety counseling; Z79.899 Other long term (current) drug therapy | CPT/HCPCS: 99212 ==

== ENCOUNTER 2023-06-21 14:12 | Outpatient (REF) | payer MEDICARE, MEDICAID, SELFPAY ==
[2023-06-21 14:29] LABS: MANUAL DIFF FLAG NO
[2023-06-21 15:02] LABS: Basophils Percent Auto 0.5 % (0-2); Eosinophils Absolute Auto 0.1 X10*3/uL (0.0-0.4); Eosinophils Percent Auto 1.3 % (0-4); Hematocrit 37.4 % (37.0-47.0); Hemoglobin 11.8 g/dl (12.0-16.0); Imm Gran Abs Auto 0.01 X10*3/uL (0.00-0.03); Imm Gran Pct Auto 0.2 % (0.0-0.4); Lymphocytes Absolute Auto 1.3 X10*3/uL (1.2-4.9); Lymphocytes Percent Auto 23.7 % (20-40); Mean Corpuscular HGB Conc 31.6 g/dl (31.0-35.0); Mean Corpuscular Hemoglobin 24.8 pg (27.0-33.0); Mean Corpuscular Volume 78.7 fL (80.0-98.0); Mean Platelet Volume 11.1 fL (9.4-12.3); Monocytes Absolute Auto 0.4 X10*3/uL (0.1-1.2); NRBC Pct Auto 0.4 /100WBC (0.0-0.2); Neutrophils Absolute Auto 3.7 x10*3/uL (2.0-8.3); Neutrophils Percent Auto 66.3 % (45-73); Platelet Count 210 X10*3/uL (160-400); Red Blood Count 4.75 X10*6/uL (4.20-5.50); Red Cell Distribution Width 15.3 % (11.0-16.0); White Blood Count 5.5 X10*3/uL (4.8-10.8)
[2023-06-21 15:35] LABS: Alanine Aminotransferase 42 U/L (0-31); Alkaline Phosphatase 70 U/L (39-117); Anion Gap 12 (12-20); Aspartate Amino Transferase 35 U/L (5-31); Bilirubin Total 0.2 mg/dL (0.0-1.0); Blood Urea Nitrogen 16 mg/dL (9-16); C Reactive Protein 0.84 mg/dL (< or = 0.50); Calcium 9.5 mg/dL (8.4-10.2); Carbon Dioxide 24 mmol/L (22-29); Chloride 107 mmol/L (96-108); Estimated Glomerular Filt Rate > 60; Glucose Random 112 mg/dL (60-115); Potassium 4.1 mmol/L (3.3-5.1); Sodium 139 mmol/L (135-145); Total Protein 7.1 g/dL (6.5-8.0)
[2023-06-21 17:20] LABS: Appearance Urine Clear; Color Urine Yellow; Glucose Urine UA Negative (Negative); Leukocyte Esterase Urine Negative (Negative); Nitrite Urine Negative (Negative); Specific Gravity - Urine >= 1.030 (1.005-1.025); Urine Blood Negative (Negative); Urine Ketones Trace mg/dL (Negative); Urine Protein Negative (Neg-Trace)
[2023-06-21 17:25] LABS: Bacteria Urine Trace (None Seen); Hyaline Casts Urine 0-2 /LPF (0-2); RBC Urine 0-2 /HPF (0-2); WBC Urine 0-5 /HPF (0-5)
[2023-06-21 17:56] LABS: Protein/Creatinine Ratio, Ur 0.06 (<0.2); Total Protein Urine Random 10 mg/dL (<12)
[2023-06-21 18:00] LABS: Erythrocyte Sedimentation Rate 25 MM/HR (0-20)
[2023-06-23 05:23] LABS: Complement C3 163 mg/dL (83-193)
[2023-06-23 08:35] LABS: Anti DNA DS Antibody <1 IU/mL
== END 2023-06-21 14:13 | disposition home or self-care (01) ==
LOC: HO.LAB 14:12
PROVIDERS: PCP Family Medicine; Visit Provider Student in an Organized Health Care Education/Training Program
DX: Z51.81 Encounter for therapeutic drug level monitoring (principal); Z79.624 Long term (current) use of inhibitors of nucleotide synthesis
CPT/HCPCS: 36415; 80053; 81001; 82570; 84156; 85025; 85652; 86140; 86160; 86225

== ENCOUNTER 2023-06-28 10:01 | Outpatient (AMB) | payer MEDICARE, MEDICAID, SELFPAY ==
--- NOTE | 2023-06-28 10:07 | A.OFFVIS_ITS ---
Intake Vital Signs 06/28/23 10:08 Height 5 ft 2 in Weight 204 lb 5.896 oz BMI 37.4 BP 124/80 Blood Pressure Location Rt brachial Position Sitting Pulse 83 Pulse Source Pulse Oximeter Temp 96.7 F L Temp Source Skin Pulse Oximetry (%) 99 Oxygen Delivery Method Room Air Intake Visit Reasons: SLE Intake Note: Patient last seen 03/24/23 presents today for follow up and test results. Reports pain in back of head started approx in April. ? UTI; c/o back pain, urine frequency started 2 weeks ago. Delinquent Tax Collector Required: No Accompanied by: Significant Other Allergies MORPHINE Allergy (Intermediate, Uncoded 06/28/23 10:16) Palpitations Medication List - Last Reconciled 06/28/23 by Myles Lyman MD albuterol sulfate 2.5 mg inhalation Q4-6H PRN atorvastatin 80 mg PO DAILY azathioprine 100 mg PO DAILY clotrimazole-betamethasone 1-0.05 % 1 appl topical BID 2 weeks cyclobenzaprine 10 mg PO BEDTIME hydroxychloroquine (Plaquenil) 200 mg PO BID omeprazole 40 mg PO DAILY oxycodone-acetaminophen 5-325 mg 1 tab PO Q6H PRN pramipexole 0.125 mg PO TID pregabalin 50 mg PO BID semaglutide (Rybelsus) 7 mg PO DAILY sertraline 100 mg PO DAILY topiramate 25 mg PO BID HPI HPI Comments History of Present Illness Details 43-year-old female with SLE returns for follow-up. She is on hydroxychloroquine 400 mg daily and azathioprine 150 mg daily. She states that for the last 2 months she has been having pain in the back of her head. It happens almost every day. Last about 2 hours, somewhat improved with sitting in a quiet dark room. She is on Topamax for migraines prescribed by her PCP. For the last 2 weeks she has been having left mid back pain as well as urinary urgency, no significant burning with urination. Initial history: The patient returns for follow-up after completion of her diagnostic workup. She stated that about 1 week ago she started having left- sided chest pain radiating to her left shoulder. The pain is worse when she takes a shower and tries to relax. The pain is not exacerbated with exertion. She stated she had similar chest pain about a year ago in February 2021, she went to her PCP and had similar chest pain. She was referred for an exercise EKG stress test which was unremarkable. She has had left upper quadrant abdominal pain for more than 1 year. She had an abdominal ultrasound last year which showed mild splenomegaly. Initial history: This is 41-year-old female with a complex past medical history including SLE diagnosed around 2016 with malar rash, positive CHIKIS fatigue and body aches. She was being seen by Dr. Peterson at [place]. Last seen in 2020. she had been on hydroxychloroquine 1 tablet twice daily For 3 years as well as azathioprine but she is unsure how long she has been on azathioprine. she does get her eyes checked yearly for Plaquenil screening. Patient states she has chronic diffuse body aches most severe pain is in her lower back. lidocaine patch helps. She is on pregabalin as well. She denies any recent rashes, oral ulcers, blood or froth in urine. She also mentions her hands turning blue in the cold. This also started around the time she was diagnosed with lupus. Denies any history of digital ulcers. No history of DVT/ PE [facility] Medical History (Updated 06/28/23 @ 10:37 by Myles Lyman MD) Migraine Asthma Dyslipidemia Obstructive sleep apnea Carpal tunnel syndrome Depression Anxiety Gastroparesis Fibromyalgia, primary Lumbar spinal stenosis GERD (gastroesophageal reflux disease) Type 2 diabetes mellitus SLE (systemic lupus erythematosus) Restless leg syndrome Surgical History delivery delivered Family History Mother Cataract Glaucoma Arthritis Breast cancer Maternal Grandfather Asthma Myocardial infarct Paternal Grandfather Coronary artery disease Social History Household Members: Significant Other Housing: House Alcohol intake: never Patient Tobacco Use Status: Former Tobacco user Years Smoked: quit 18 years ago e-Cigarette/Vaping Use: Never Used service: No Current occupational status: disabled Current occupation: Formerly worked in [employer] Const Reports headache(s) ENT Reports headache(s) Denies hematuria, Denies dysuria and Reports urinary urgency Musc Reports back pain Neuro Reports headache(s) Physical Exam Vital Signs: Last Vital Signs Temp 96.7 F L 06/28/23 10:08 Pulse 83 06/28/23 10:08 BP 124/80 06/28/23 10:08 Pulse Ox 99 06/28/23 10:08 Oxygen Delivery Method Room Air 06/28/23 10:08 BMI result Body Mass Index 37.4 Const General: cooperative and healthy appearing Nutritional Appearance: obese morbidly obese Limitations: no limitations HEENT Other: Bilateral occipital area tenderness Head: Yes normocephalic and Yes atraumatic Resp Effort & Inspection: normal respiratory effort and able to speak in complete sentences Back/Spine/Pelvis Other: Left paraspinal muscle tenderness in thoracic and lumbar areas Extrem Other: No active synovitis normal nail fold capillaroscopy Multiple fibromyalgia tender points Results Reviewed Results Reviewed: X-RAY EXAM OF SHOULDER, COMPLETE Exam Date: 12/22/2022 10:30 AM Ordering Diagnosis: Left shoulder pain, unspecified chronicity ? X-RAY EXAM OF LEFT SHOULDER, COMPLETE ? Reason: left posterior shoulder pain ? Comparison: Radiographs of the left shoulder, April 08, 2017. ? FINDINGS: No fracture. Normal alignment. Normal joint spaces. No soft tissue swelling. ? IMPRESSION IMPRESSION: Normal joint spaces. X-RAY EXAM OF LOWER SPINE WITH OBLIQUES B Exam Date: 12/22/2022 10:30 AM Ordering Diagnosis: Spinal stenosis of lumbar region, unspecified whether neurogenic claudication present ? X-RAY EXAM OF LOWER SPINE WITH OBLIQUES ? Reason: left lower back pain, radiating to L hip and LLE, history of lumbar stenosis ? Comparison: Radiographs on July 22, 2012. ? FINDINGS: Minimal grade 1 retrolisthesis of L3 on L4. Vertebral body heights are maintained. Mild disc space narrowing and marginal osteophytes at L3-L4. Sacroiliac joints are intact. ? IMPRESSION IMPRESSION: Mild degenerative changes at L3-L4. X-RAY EXAM OF HAND, 3+ VIEWS B Exam Date: 12/22/2022 10:29 AM Ordering Diagnosis: Hand pain, left ? X-RAY EXAM OF LEFT HAND, 3+ VIEWS ? Reason: left hand/thumb pain, numbness, hx carpal tunnel ? Comparison: None ? FINDINGS: No fracture. No subluxation. Negative ulnar variance. Normal joint spaces. No soft tissue swelling. ? IMPRESSION IMPRESSION: No fracture or dislocation. RADEX HIP UNILATERAL WITH PELVIS 2-3 VIEWS Exam Date: 12/22/2022 10:28 AM Ordering Diagnosis: Pain of left hip ? RADEX HIP UNILATERAL LEFT WITH PELVIS 2-3 VIEWS ? Reason: L hip pain ? Comparison: Radiographs of the sacroiliac joints on September 08, 2012. ? FINDINGS: ? Pelvis: No displaced fracture. Mild degenerative changes of the bilateral sacroiliac joints. Intact pubic symphysis. Frontal evaluation of the right hip demonstrates normal joint space. ? Left hip: No displaced fracture. Normal alignment. Normal joint space. ? IMPRESSION IMPRESSION: No displaced fracture. Assessment & Plan Assessment & Plan (1) SLE (systemic lupus erythematosus): Comment: dx 2017 ( CHIKIS 1-640 homogeneous, malar rash, oral ulcers, fatigue body aches) on HCQ +AZA since 2016 AZA dose increased to 150 mg 04/16 Code(s): M32.9 - Systemic lupus erythematosus, unspecified Qualifiers: Systemic lupus erythematosus type: unspecified Systemic lupus erythematosus organ involvement: unspecified Qualified Code(s): M32.9 - Systemic lupus erythematosus, unspecified Plan: This is 43-year-old female with SLE presents for follow-up. Doing well over all. I do not see any signs of active disease. Her lupus serology labs are unremarkable. She has normal complements, negative dsDNA and no proteinuria. 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 Patient has no leukopenia on follow-up. As mentioned above, will lower azathioprine to 100 mg daily (3) Encounter for monitoring of hydroxychloroquine therapy: Code(s): Z51.81 - Encounter for therapeutic drug level monitoring; Z79.899 - Other correction (current) drug therapy Plan: Follow-up regularly with Ophthalmology (4) Fibromyalgia, primary: Code(s): M79.7 - Fibromyalgia Plan: On Lyrica 50 mg Twice daily prescribed by PCP (5) Urinary urgency: Code(s): R39.15 - Urgency of urination Plan: Recent urinalysis with no WBCs Advised patient to seek evaluation by Urology if symptoms are persistent or worsening (6) Migraine: Code(s): G43.909 - Migraine, unspecified, not intractable, without status migrainosus Qualifiers: Migraine type: migraine (< 15 days per month) without aura Status migrainosus presence: without status migrainosus Intractability: not intractable Qualified Code(s): G43.009 - Migraine without aura, not intractable, without status migrainosus Plan: Follow-up with PCP Plan I spent 45 minutes reviewing patient's chart, evaluating patient, ordering diagnostic workup, counseling patient and documenting in the chart Orders: Orders Erythrocyte Sedimentation Rate 3 Months M32.9 - Systemic lupus erythematosus, unspecified Anti DNA DS Antibody 3 Months M32.9 - Systemic lupus erythematosus, unspecified Complement C3 3 Months M32.9 - Systemic lupus erythematosus, unspecified Complement C4 3 Months M32.9 - Systemic lupus erythematosus, unspecified Protein Creatinine Ratio, Ur 3 Months M32.9 - Systemic lupus erythematosus, unspecified Complete Blood Count Auto Diff 3 Months M32.9 - Systemic lupus erythematosus, unspecified Comprehensive Met. Panel 3 Months M32.9 - Systemic lupus erythematosus, unspecified C Reactive Protein 3 Months M32.9 - Systemic lupus erythematosus, unspecified UA w Microscopic 3 Months M32.9 - Systemic lupus erythematosus, unspecified Medications: Changed From azathioprine 150 mg (3 x 50 mg) PO DAILY 90 tabs 2RF To azathioprine 100 mg PO DAILY Coding Level of Care Code Est Pt Level 5 (99592) Diagnoses Systemic lupus erythematosus, unspecified SLE type, unspecified organ involvement status M32.9 Systemic lupus erythematosus type: unspecified Systemic lupus erythematosus organ involvement: unspecified Encounter for monitoring azathioprine therapy Z51.81; Z79.624 Encounter for monitoring of hydroxychloroquine therapy Z51.81; Z79.899 Fibromyalgia, primary M79.7 Urinary urgency R39.15 Migraine without aura and without status migrainosus, not intractable G43.009 Migraine type: migraine (< 15 days per month) without aura Status migrainosus presence: without status migrainosus Intractability: not intractable
[2023-06-28 10:08] VITALS: BP 124/80; PULSE 83; TEMP 35.9; O2SAT 99; BMI 37.4
== END 2023-06-28 10:32 | disposition home or self-care (01) ==
PROVIDERS: PCP Family Medicine; Visit Provider Student in an Organized Health Care Education/Training Program
DX: M32.9 Systemic lupus erythematosus, unspecified (principal); M79.7 Fibromyalgia; Z79.624 Long term (current) use of inhibitors of nucleotide synthesis; Z79.899 Other long term (current) drug therapy; Z51.81 Encounter for therapeutic drug level monitoring; R39.15 Urgency of urination; G43.009 Migraine without aura, not intractable, without status migrainosus
CPT/HCPCS: 99214

== ENCOUNTER → 2023-06-28 10:01 | Outpatient (BNVA) | payer MEDICARE, MEDICAID, SELFPAY | PROVIDERS: PCP Family Medicine; Visit Provider Student in an Organized Health Care Education/Training Program | DX: M32.9 Systemic lupus erythematosus, unspecified (principal); M79.7 Fibromyalgia; R39.15 Urgency of urination; G43.009 Migraine without aura, not intractable, without status migrainosus; Z51.81 Encounter for therapeutic drug level monitoring; Z79.624 Long term (current) use of inhibitors of nucleotide synthesis; Z79.899 Other long term (current) drug therapy | CPT/HCPCS: 99212 ==

== ENCOUNTER 2023-09-21 11:33 | Outpatient (REF) | payer MEDICARE, MEDICAID, SELFPAY ==
[2023-09-21 11:55] LABS: MANUAL DIFF FLAG NO
[2023-09-21 12:28] LABS: Basophils Percent Auto 0.6 % (0-2); Eosinophils Absolute Auto 0.1 X10*3/uL (0.0-0.4); Eosinophils Percent Auto 1.8 % (0-4); Hematocrit 39.3 % (37.0-47.0); Hemoglobin 12.8 g/dl (12.0-16.0); Imm Gran Abs Auto 0.02 X10*3/uL (0.00-0.03); Imm Gran Pct Auto 0.4 % (0.0-0.4); Lymphocytes Absolute Auto 1.2 X10*3/uL (1.2-4.9); Lymphocytes Percent Auto 22.9 % (20-40); Mean Corpuscular HGB Conc 32.6 g/dl (31.0-35.0); Mean Corpuscular Volume 76.6 fL (80.0-98.0); Mean Platelet Volume 11.3 fL (9.4-12.3); Monocytes Absolute Auto 0.4 X10*3/uL (0.1-1.2); Monocytes Percent Auto 7.9 % (2-11); Neutrophils Absolute Auto 3.4 x10*3/uL (2.0-8.3); Neutrophils Percent Auto 66.4 % (45-73); Platelet Count 193 X10*3/uL (160-400); Red Blood Count 5.13 X10*6/uL (4.20-5.50); Red Cell Distribution Width 15.8 % (11.0-16.0); White Blood Count 5.1 X10*3/uL (4.8-10.8)
[2023-09-21 12:46] LABS: Appearance Urine Clear; Color Urine Yellow; Glucose Urine UA Negative (Negative); Leukocyte Esterase Urine Negative (Negative); Nitrite Urine Negative (Negative); Urine Blood Negative (Negative); Urine Ketones Negative (Negative); Urine Protein Negative (Neg-Trace)
[2023-09-21 12:49] LABS: Bacteria Urine None Seen (None Seen); Hyaline Casts Urine 0-2 /LPF (0-2); RBC Urine 0-2 /HPF (0-2); Squamous Epithelial Cell Urine 0-2 /HPF (0-2); WBC Urine 0-5 /HPF (0-5)
[2023-09-21 12:55] LABS: Alanine Aminotransferase 114 U/L (0-31); Albumin Level 4.3 g/dL (3.5-5.0); Alkaline Phosphatase 58 U/L (39-117); Anion Gap 11 (12-20); Aspartate Amino Transferase 77 U/L (5-31); Bilirubin Total 0.3 mg/dL (0.0-1.0); Blood Urea Nitrogen 14 mg/dL (9-16); C Reactive Protein 0.76 mg/dL (< or = 0.50); Calcium 9.4 mg/dL (8.4-10.2); Carbon Dioxide 20 mmol/L (22-29); Chloride 111 mmol/L (96-108); Estimated Glomerular Filt Rate > 60; Glucose Random 109 mg/dL (60-115); Potassium 4.3 mmol/L (3.3-5.1); Sodium 138 mmol/L (135-145); Total Protein 7.5 g/dL (6.5-8.0)
[2023-09-21 13:31] LABS: Erythrocyte Sedimentation Rate 19 MM/HR (0-20)
[2023-09-21 13:46] LABS: Creatinine Urine 52.83 mg/dL; Total Protein Urine Random < 7 mg/dL (<12)
[2023-09-22 15:03] LABS: Anti DNA DS Antibody <1 IU/mL
[2023-09-25 01:18] LABS: Complement C3 126 mg/dL (83-193)
== END 2023-09-21 11:34 | disposition home or self-care (01) ==
LOC: HO.LAB 11:33
PROVIDERS: Visit Provider Student in an Organized Health Care Education/Training Program
DX: M32.9 Systemic lupus erythematosus, unspecified (principal)
CPT/HCPCS: 36415; 80053; 81001; 82570; 84156; 85025; 85652; 86140; 86160; 86225

== ENCOUNTER 2023-09-27 13:21 | Outpatient (AMB) | payer MEDICARE, MEDICAID, SELFPAY ==
--- NOTE | 2023-09-27 13:36 | MHC.OFFVIS ---
Vital Signs 09/27/23 13:43 Height 5 ft 2 in Weight 196 lb 6.91 oz BMI 35.9 BP 98/60 Blood Pressure Location Rt brachial Position Sitting Pulse 72 Pulse Oximetry (%) 99 Intake Visit Reasons: SLE Intake Note: Patient last seen 06/28/23 presents today for follow up and test results. Reports a lump on the right side of her abd, lateral aspect. C/o right foot rash x 3-4 days Allergies MORPHINE Allergy (Intermediate, Uncoded 09/27/23 13:42) Palpitations Medication List - Last Reconciled 09/27/23 by Myles Lyman MD albuterol sulfate 2.5 mg inhalation Q4-6H PRN atorvastatin 80 mg PO DAILY azathioprine 100 mg PO DAILY clotrimazole-betamethasone 1-0.05 % 1 appl topical BID 2 weeks hydroxychloroquine (Plaquenil) 200 mg PO BID omeprazole 40 mg PO DAILY oxycodone-acetaminophen 5-325 mg 1 tab PO Q6H PRN pramipexole 0.125 mg PO TID pregabalin 50 mg PO BID semaglutide (Rybelsus) 7 mg PO DAILY sertraline 100 mg PO DAILY topiramate 25 mg PO BID HPI Comments Details: 43-year-old female with SLE returns for follow-up. She is on hydroxychloroquine 400 mg daily and azathioprine 100 mg daily. She states that about a month ago she was having abdominal pain associated with black stools, this self-resolved in about 10 days. She states that she has been having pain in the right lower abdomen area. She feels that she has a lump that expanded and is painful now. She has noticed an itchy skin rash on her right foot similar to the rash she had last year that resolved with antifungal +steroid cream. Doing well otherwise Initial history: The patient returns for follow-up after completion of her diagnostic workup. She stated that about 1 week ago she started having left-sided chest pain radiating to her left shoulder. The pain is worse when she takes a shower and tries to relax. The pain is not exacerbated with exertion. She stated she had similar chest pain about a year ago in February 2021, she went to her PCP and had similar chest pain. She was referred for an exercise EKG stress test which was unremarkable. She has had left upper quadrant abdominal pain for more than 1 year. She had an abdominal ultrasound last year which showed mild splenomegaly. Initial history: This is 41-year-old female with a complex past medical history including SLE diagnosed around 2016 with malar rash, positive CHIKIS fatigue and body aches. She was being seen by Dr. Peterson at [place]. Last seen in 2020. she had been on hydroxychloroquine 1 tablet twice daily For 3 years as well as azathioprine but she is unsure how long she has been on azathioprine. she does get her eyes checked yearly for Plaquenil screening. Patient states she has chronic diffuse body aches most severe pain is in her lower back. lidocaine patch helps. She is on pregabalin as well. She denies any recent rashes, oral ulcers, blood or froth in urine. She also mentions her hands turning blue in the cold. This also started around the time she was diagnosed with lupus. Denies any history of digital ulcers. No history of DVT/ PE [facility] Medical History Migraine Asthma Dyslipidemia Obstructive sleep apnea Carpal tunnel syndrome Depression Anxiety Gastroparesis Fibromyalgia, primary Lumbar spinal stenosis GERD (gastroesophageal reflux disease) Type 2 diabetes mellitus SLE (systemic lupus erythematosus) Restless leg syndrome Surgical History delivery delivered Family History Mother Cataract Glaucoma Arthritis Breast cancer Maternal Grandfather Asthma Myocardial infarct Paternal Grandfather Coronary artery disease Social History Household Members: Significant Other Housing: House Alcohol intake: never Patient Tobacco Use Status: Former Tobacco user Years Smoked: quit 18 years ago e-Cigarette/Vaping Use: Never Used service: No Current occupational status: disabled Current occupation: Formerly worked in [employer] Female Reproductive History Menstrual Total pregnancies: 1 Full term: 1 Review of Systems Details: Abdominal wall tender lump Skin/Breast Reports pruritus and Reports rash Physical Exam Vital Signs: Last Vital Signs Pulse 72 09/27/23 13:43 BP 98/60 09/27/23 13:43 Pulse Ox 99 09/27/23 13:43 BMI result Body Mass Index 35.9 Const General: cooperative and healthy appearing Nutritional Appearance: obese morbidly obese Limitations: no limitations HEENT Head: Yes normocephalic and Yes atraumatic Resp Effort & Inspection: normal respiratory effort and able to speak in complete sentences Cardio Rate: regular rate Rhythm: regular rhythm GI Other: Tender area in the right lateral lower ribs area, no significant mass could be palpated Back/Spine/Pelvis Other: Left paraspinal muscle tenderness in thoracic and lumbar areas Skin Other: Erythematous rash on dorsal aspect of right foot Extrem Other: No active synovitis normal nail fold capillaroscopy Few fibromyalgia tender points Assessment & Plan Assessment & Plan (1) SLE (systemic lupus erythematosus): Comment: dx 2017 ( CHIKIS 1-640 homogeneous, malar rash, oral ulcers, fatigue body aches) on HCQ +AZA since 2016 AZA dose increased to 150 mg 04/16 reduced to 100 mg 06/2023 due to transaminitis Code(s): M32.9 - Systemic lupus erythematosus, unspecified Category: Medical Qualifiers: Systemic lupus erythematosus type: unspecified Systemic lupus erythematosus organ involvement: unspecified Qualified Code(s): M32.9 - Systemic lupus erythematosus, unspecified Plan: This is 43-year-old female with SLE presents for follow-up. Doing well overall. I do not see any signs of active disease. Her lupus serology labs are unremarkable. She has normal complements, negative dsDNA and no proteinuria. Continue hydroxychloroquine 200 mg Twice daily Transaminitis worsening. 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 Patient has no leukopenia on follow-up. Transaminitis. Will DC azathioprine. (3) Encounter for monitoring of hydroxychloroquine therapy: Code(s): Z51.81 - Encounter for therapeutic drug level monitoring; Z79.899 - Other keno terminal operator (current) drug therapy Category: Medical Plan: Follow-up regularly with Ophthalmology (4) Fibromyalgia, primary: Code(s): M79.7 - Fibromyalgia Category: Medical Plan: On Lyrica 50 mg Twice daily prescribed by PCP (5) Transaminitis: Code(s): R74.01 - Elevation of levels of liver transaminase levels Category: Medical Plan: Unclear cause. Patient recently started taking a weight loss supplement unicity She also had episode of GI upset about a month ago that self-resolved in 10 days Will check an abdominal ultrasound. Azathioprine was discontinued as mentioned above. Patient also complaining of tenderness in her right lateral abdominal area. (6) Skin rash: Code(s): R21 - Rash and other nonspecific skin eruption Category: Medical Plan: On dorsal aspect of right foot, Likely fungal. Prescribed clotrimazole/betamethasone Plan I spent 45 minutes reviewing patient's chart, evaluating patient, ordering diagnostic workup, counseling patient and documenting in the chart Orders: Orders US abdomen complete Today R19.00 - Intra-abdominal and pelvic swelling, mass and lump, unspecified site, R74.01 - Elevation of levels of liver transaminase levels Complement C3 3 Months M32.9 - Systemic lupus erythematosus, unspecified Complement C4 3 Months M32.9 - Systemic lupus erythematosus, unspecified C Reactive Protein 3 Months M32.9 - Systemic lupus erythematosus, unspecified Erythrocyte Sedimentation Rate 3 Months M32.9 - Systemic lupus erythematosus, unspecified Complete Blood Count Auto Diff 3 Months M32.9 - Systemic lupus erythematosus, unspecified Comprehensive Met. Panel 3 Months M32.9 - Systemic lupus erythematosus, unspecified Gamma Glutamyl Transpeptidase 1 Month R74.01 - Elevation of levels of liver transaminase levels Anti DNA DS Antibody 3 Months M32.9 - Systemic lupus erythematosus, unspecified Protein Creatinine Ratio, Ur 3 Months M32.9 - Systemic lupus erythematosus, unspecified UA w Microscopic 3 Months M32.9 - Systemic lupus erythematosus, unspecified Comprehensive Met. Panel 1 Month R74.01 - Elevation of levels of liver transaminase levels Medications: Refilled clotrimazole-betamethasone 1-0.05 % 1 appl topical BID 2 weeks 15 grams 0RF Coding Level of Care Code Est Pt Level 5 (74829) Complex EM visit Add On G2211 Diagnoses Systemic lupus erythematosus, unspecified SLE type, unspecified organ involvement status M32.9 Systemic lupus erythematosus type: unspecified Systemic lupus erythematosus organ involvement: unspecified Encounter for monitoring azathioprine therapy Z51.81; Z79.624 Encounter for monitoring of hydroxychloroquine therapy Z51.81; Z79.899 Fibromyalgia, primary M79.7 Transaminitis R74.01 Skin rash R21
[2023-09-27 13:43] VITALS: BP 98/60; PULSE 72; O2SAT 99; BMI 35.9
== END 2023-09-27 13:56 | disposition home or self-care (01) ==
PROVIDERS: PCP Family Medicine; Visit Provider Student in an Organized Health Care Education/Training Program
DX: M32.9 Systemic lupus erythematosus, unspecified (principal); Z51.81 Encounter for therapeutic drug level monitoring; Z79.624 Long term (current) use of inhibitors of nucleotide synthesis; Z79.899 Other long term (current) drug therapy; M79.7 Fibromyalgia; R74.01 Elevation of levels of liver transaminase levels; R21 Rash and other nonspecific skin eruption
CPT/HCPCS: 99215; G2211

== ENCOUNTER → 2023-09-27 13:21 | Outpatient (BNVA) | payer MEDICARE, MEDICAID, SELFPAY | PROVIDERS: PCP Family Medicine; Visit Provider Student in an Organized Health Care Education/Training Program | DX: M32.9 Systemic lupus erythematosus, unspecified (principal); M79.7 Fibromyalgia; R74.01 Elevation of levels of liver transaminase levels; R21 Rash and other nonspecific skin eruption; Z79.624 Long term (current) use of inhibitors of nucleotide synthesis; Z79.899 Other long term (current) drug therapy; Z51.81 Encounter for therapeutic drug level monitoring | CPT/HCPCS: 99212 ==

== ENCOUNTER 2023-10-05 08:05 | Outpatient (REF) | payer MEDICARE, MEDICAID, SELFPAY ==
--- NOTE | ~2023-10-05 | US_ITS ---
EXAMINATION: US ABDOMEN COMPLETE CLINICAL INFORMATION: Intra-abdominal and pelvic swelling, mass and lump, unspecified. Tender spot in the right lower rib area, transaminitis. COMPARISON: None available. TECHNIQUE: Real-time imaging of the abdominal viscera. FINDINGS: PANCREAS: Obscured by overlying bowel gas. ABDOMINAL AORTA: The proximal, mid, and distal segments are normal in caliber. INFERIOR VENA CAVA: Visualized portions are normal. LIVER: The liver is normal in size. The liver contour is normal. There is diffuse increased liver parenchymal echogenicity, consistent with hepatic steatosis. No focal hepatic lesion. There is no intrahepatic biliary duct dilatation seen. GALLBLADDER: Normal. The gallbladder is physiologically distended without evidence of stones, sludge, polyps, wall thickening or pericholecystic fluid. COMMON BILE DUCT: Normal in caliber measuring 0.3 cm in diameter. RIGHT KIDNEY: Normal. No hydronephrosis. No renal calculi or focal parenchymal lesions. The kidney measures 10.1 cm in maximum dimension. LEFT KIDNEY: Normal. No hydronephrosis. No renal calculi or focal parenchymal lesions. The kidney measures 12.1 cm in maximum dimension. SPLEEN: Normal. The spleen measures 11.9 cm in maximum dimension. FREE FLUID: None. US/US abdomen complete IMPRESSION: Hepatic steatosis.
== END 2023-10-05 08:06 | disposition home or self-care (01) ==
LOC: HO.US 08:05
PROVIDERS: PCP Family Medicine; Visit Provider Student in an Organized Health Care Education/Training Program
DX: R19.00 Intra-abdominal and pelvic swelling, mass and lump, unspecified site (principal); R74.01 Elevation of levels of liver transaminase levels
CPT/HCPCS: 76700

== ENCOUNTER 2023-12-16 10:12 | Outpatient (REF) | payer MEDICARE, MEDICAID, SELFPAY ==
[2023-12-16 10:25] LABS: MANUAL DIFF FLAG NO
[2023-12-16 10:45] LABS: Appearance Urine Clear; Color Urine Yellow; Glucose Urine UA Negative (Negative); Leukocyte Esterase Urine Trace (Negative); Nitrite Urine Negative (Negative); PH 5.5 (5.0-9.0); UMIC TRIGGER UA YES; Urine Blood Negative (Negative); Urine Ketones Negative (Negative); Urine Protein Negative (Neg-Trace)
[2023-12-16 10:48] LABS: Bacteria Urine 1+ (None Seen); Hyaline Casts Urine 0-2 /LPF (0-2); RBC Urine 0-2 /HPF (0-2); WBC Urine 0-5 /HPF (0-5)
[2023-12-16 10:50] LABS: Basophils Percent Auto 0.6 % (0-2); Eosinophils Absolute Auto 0.1 X10*3/uL (0.0-0.4); Eosinophils Percent Auto 1.5 % (0-4); Hematocrit 38.7 % (37.0-47.0); Hemoglobin 12.5 g/dl (12.0-16.0); Imm Gran Abs Auto 0.02 X10*3/uL (0.00-0.03); Imm Gran Pct Auto 0.4 % (0.0-0.4); Lymphocytes Absolute Auto 1.1 X10*3/uL (1.2-4.9); Lymphocytes Percent Auto 20.7 % (20-40); Mean Corpuscular HGB Conc 32.3 g/dl (31.0-35.0); Mean Corpuscular Hemoglobin 25.3 pg (27.0-33.0); Mean Corpuscular Volume 78.3 fL (80.0-98.0); Mean Platelet Volume 11.4 fL (9.4-12.3); Monocytes Absolute Auto 0.4 X10*3/uL (0.1-1.2); Monocytes Percent Auto 7.3 % (2-11); Neutrophils Absolute Auto 3.6 x10*3/uL (2.0-8.3); Neutrophils Percent Auto 69.5 % (45-73); Platelet Count 210 X10*3/uL (160-400); Red Blood Count 4.94 X10*6/uL (4.20-5.50); Red Cell Distribution Width 15.8 % (11.0-16.0); White Blood Count 5.2 X10*3/uL (4.8-10.8)
[2023-12-16 11:15] LABS: Creatinine Urine 48.32 mg/dL; Total Protein Urine Random < 7 mg/dL (<12)
[2023-12-16 11:34] LABS: Erythrocyte Sedimentation Rate 26 MM/HR (0-20)
[2023-12-16 11:44] LABS: Alanine Aminotransferase 69 U/L (0-31); Alkaline Phosphatase 61 U/L (39-117); Anion Gap 12 (12-20); Aspartate Amino Transferase 38 U/L (5-31); Bilirubin Total 0.3 mg/dL (0.0-1.0); Blood Urea Nitrogen 15 mg/dL (9-16); C Reactive Protein 0.88 mg/dL (< or = 0.50); Calcium 9.8 mg/dL (8.4-10.2); Carbon Dioxide 23 mmol/L (22-29); Chloride 106 mmol/L (96-108); Estimated Glomerular Filt Rate > 60; Gamma Glutamyl Transpeptidase 62 U/L (7-33); Glucose Random 133 mg/dL (60-115); Potassium 4.2 mmol/L (3.3-5.1); Sodium 137 mmol/L (135-145); Total Protein 7.1 g/dL (6.5-8.0)
[2023-12-17 20:43] LABS: Anti DNA DS Antibody <1 IU/mL
[2023-12-20 10:54] LABS: Complement C3 126 mg/dL (83-193)
== END 2023-12-16 10:13 | disposition home or self-care (01) ==
LOC: HO.LAB 10:12
PROVIDERS: PCP Family Medicine; Visit Provider Student in an Organized Health Care Education/Training Program
DX: M32.9 Systemic lupus erythematosus, unspecified (principal); R74.01 Elevation of levels of liver transaminase levels
CPT/HCPCS: 36415; 80053; 81001; 82570; 82977; 84156; 85025; 85652; 86140; 86160; 86225

== ENCOUNTER 2024-03-07 15:36 | Outpatient (AMB) | payer MEDICARE, MEDICAID, SELFPAY ==
[2024-03-07 15:42] VITALS: BP 106/62; PULSE 75; O2SAT 99; BMI 33.4
--- NOTE | 2024-03-07 15:42 | A.OFFVIS_ITS ---
Vital Signs 03/07/24 15:42 Height 5 ft 2 in Weight 182 lb 8.684 oz BMI 33.4 BP 106/62 Blood Pressure Location Lt brachial Position Sitting Pulse 75 Pulse Source Pulse Oximeter Pulse Oximetry (%) 99 Oxygen Delivery Method Room Air Intake Visit Reasons: Tender spot in the right lower ribs area Transamin Intake Note: Patient last seen by Doctor Myles Lyman on 09/27/23. Presents today for tender spot in the right lower ribs area Transamin and SLE follow up and test results. Allergies MORPHINE Allergy (Intermediate, Uncoded 03/07/24 15:44) Palpitations Medication List - Last Reconciled 03/07/24 by Myles Lyman MD albuterol sulfate 2.5 mg inhalation Q4-6H PRN atorvastatin 80 mg PO DAILY clotrimazole-betamethasone 1-0.05 % 1 appl topical BID 2 weeks hydroxychloroquine 200 mg PO BID omeprazole 40 mg PO DAILY oxycodone-acetaminophen 5-325 mg 1 tab PO Q6H PRN pramipexole 0.125 mg PO TID pregabalin 50 mg PO BID semaglutide (Rybelsus) 7 mg PO DAILY sertraline 100 mg PO DAILY topiramate 25 mg PO BID HPI Comments Details: 44-year-old female with SLE returns for follow-up. She is on hydroxychloroquine 400 mg daily azathioprine was discontinued last visit. She states that she is doing reasonably well. Has not had any joint pains swelling or skin rashes. She has been on Ozempic. She has lost more than 22 lb. Initial history: The patient returns for follow-up after completion of her diagnostic workup. She stated that about 1 week ago she started having left- sided chest pain radiating to her left shoulder. The pain is worse when she ta kes a shower and tries to relax. The pain is not exacerbated with exertion. She stated she had similar chest pain about a year ago in February 2021, she went to her PCP and had similar chest pain. She was referred for an exercise EKG stress test which was unremarkable. She has had left upper quadrant abdominal pain for more than 1 year. She had an abdominal ultrasound last year which showed mild splenomegaly. Initial history: This is 41-year-old female with a complex past medical history including SLE diagnosed around 2016 with malar rash, positive CHIKIS fatigue and body aches. She was being seen by Dr. Peterson at [place]. Last seen in 2020. she had been on hydroxychloroquine 1 tablet twice daily For 3 years as well as azathioprine but she is unsure how long she has been on azathioprine. she does get her eyes checked yearly for Plaquenil screening. Patient states she has chronic diffuse body aches most severe pain is in her lower back. lidocaine patch helps. She is on pregabalin as well. She denies any recent rashes, oral ulcers, blood or froth in urine. She also mentions her hands turning blue in the cold. This also started around the time she was diagnosed with lupus. Denies any history of digital ulcers. No history of DVT/ PE COUNTS INCLUDE 234 BEDS AT [facility] Medical History Migraine Asthma Dyslipidemia Obstructive sleep apnea Carpal tunnel syndrome Depression Anxiety Gastroparesis Fibromyalgia, primary Lumbar spinal stenosis GERD (gastroesophageal reflux disease) Type 2 diabetes mellitus SLE (systemic lupus erythematosus) Restless leg syndrome Surgical History delivery delivered Family History Mother Cataract Glaucoma Arthritis Breast cancer Maternal Grandfather Asthma Myocardial infarct Paternal Grandfather Coronary artery disease Social History Household Members: Significant Other Housing: House Alcohol intake: never Patient Tobacco Use Status: Former Tobacco user Years Smoked: quit 18 years ago e-Cigarette/Vaping Use: Never Used service: No Current occupational status: disabled Current occupation: Formerly worked in [employer] Female Reproductive History Menstrual Total pregnancies: 1 Full term: 1 Review of Systems Musc Denies arthralgias, Denies joint swelling and Denies stiffness Physical Exam Vital Signs: Last Vital Signs Pulse 75 03/07/24 15:42 BP 106/62 03/07/24 15:42 Pulse Ox 99 03/07/24 15:42 Oxygen Delivery Method Room Air 03/07/24 15:42 BMI result Body Mass Index 33.4 Const General: cooperative and healthy appearing Nutritional Appearance: obese morbidly obese Limitations: no limitations HEENT Head: Yes normocephalic and Yes atraumatic Resp Effort & Inspection: normal respiratory effort and able to speak in complete sentences Cardio Rate: regular rate Rhythm: regular rhythm Extrem Other: No active synovitis normal nail fold capillaroscopy Few fibromyalgia tender points Assessment & Plan Assessment & Plan (1) SLE (systemic lupus erythematosus): Comment: dx 2017 ( CHIKIS 1-640 homogeneous, malar rash, oral ulcers, fatigue body aches) on HCQ +AZA since 2016 AZA dose increased to 150 mg 04/16 reduced to 100 mg 06/2023 due to transaminitis Code(s): M32.9 - Systemic lupus erythematosus, unspecified Category: Medical Qualifiers: Systemic lupus erythematosus type: unspecified Systemic lupus erythematosus organ involvement: unspecified Qualified Code(s): M32.9 - Systemic lupus erythematosus, unspecified Plan: This is 44-year-old female with SLE presents for follow-up. Doing well overall. I do not see any signs of active disease on physical exam. Continue hydroxychloroquine 200 mg Twice daily Check labs today and before next visit in 4 months (2) Encounter for monitoring of hydroxychloroquine therapy: Code(s): Z51.81 - Encounter for therapeutic drug level monitoring; Z79.899 - Other usp (current) drug therapy Category: Medical Plan: Follow-up regularly with Ophthalmology (3) Fibromyalgia, primary: Code(s): M79.7 - Fibromyalgia Category: Medical Plan: Patient ran out of her Lyrica. Prescribed Lyrica 50 mg daily (4) Transaminitis: Code(s): R74.01 - Elevation of levels of liver transaminase levels Category: Medical Plan: Check repeat labs today Plan I spent 25 minutes reviewing patient's chart, evaluating patient, ordering diagnostic workup, counseling patient and documenting in the chart Orders: Orders C Reactive Protein 4 Months M32.9 - Systemic lupus erythematosus, unspecified Protein Creatinine Ratio, Ur 4 Months M32.9 - Systemic lupus erythematosus, unspecified Complete Blood Count Auto Diff 4 Months M32.9 - Systemic lupus erythematosus, unspecified Erythrocyte Sedimentation Rate Today M32.9 - Systemic lupus erythematosus, unspecified UA w Microscopic Today M32.9 - Systemic lupus erythematosus, unspecified Complete Blood Count Auto Diff Today M32.9 - Systemic lupus erythematosus, unspecified Anti DNA DS Antibody 4 Months M32.9 - Systemic lupus erythematosus, unspecified Complement C3 4 Months M32.9 - Systemic lupus erythematosus, unspecified Complement C4 4 Months M32.9 - Systemic lupus erythematosus, unspecified Erythrocyte Sedimentation Rate 4 Months M32.9 - Systemic lupus erythematosus, unspecified UA w Microscopic 4 Months M32.9 - Systemic lupus erythematosus, unspecified Comprehensive Met. Panel 4 Months M32.9 - Systemic lupus erythematosus, unspecified Comprehensive Met. Panel Today M32.9 - Systemic lupus erythematosus, unspecified Complement C3 Today M32.9 - Systemic lupus erythematosus, unspecified Anti DNA DS Antibody Today M32.9 - Systemic lupus erythematosus, unspecified Complement C4 Today M32.9 - Systemic lupus erythematosus, unspecified C Reactive Protein Today M32.9 - Systemic lupus erythematosus, unspecified Protein Creatinine Ratio, Ur Today M32.9 - Systemic lupus erythematosus, unspecified Medications: Changed From pregabalin 50 mg PO BID 180 caps 1RF To pregabalin 50 mg PO DAILY 30 caps 3RF Coding Level of Care Code Est Pt Level 4 (78148) Diagnoses Systemic lupus erythematosus, unspecified SLE type, unspecified organ involvement status M32.9 Systemic lupus erythematosus type: unspecified Systemic lupus erythematosus organ involvement: unspecified Encounter for monitoring of hydroxychloroquine therapy Z51.81; Z79.899 Fibromyalgia, primary M79.7 Transaminitis R74.01
== END 2024-03-07 16:15 | disposition home or self-care (01) ==
PROVIDERS: PCP Family Medicine; Visit Provider Student in an Organized Health Care Education/Training Program
DX: M32.9 Systemic lupus erythematosus, unspecified (principal); Z51.81 Encounter for therapeutic drug level monitoring; Z79.899 Other long term (current) drug therapy; M79.7 Fibromyalgia; R74.01 Elevation of levels of liver transaminase levels
CPT/HCPCS: 99214

== ENCOUNTER 2024-03-07 15:36 | Outpatient (REF) | payer MEDICARE, MEDICAID, SELFPAY ==
[2024-03-07 16:52] LABS: MANUAL DIFF FLAG NO
[2024-03-07 17:06] LABS: Basophils Percent Auto 0.6 % (0-2); Eosinophils Absolute Auto 0.1 X10*3/uL (0.0-0.4); Hematocrit 39.3 % (37.0-47.0); Hemoglobin 12.5 g/dl (12.0-16.0); Imm Gran Abs Auto 0.02 X10*3/uL (0.00-0.03); Imm Gran Pct Auto 0.4 % (0.0-0.4); Lymphocytes Absolute Auto 1.2 X10*3/uL (1.2-4.9); Lymphocytes Percent Auto 22.9 % (20-40); Mean Corpuscular HGB Conc 31.8 g/dl (31.0-35.0); Mean Corpuscular Hemoglobin 25.8 pg (27.0-33.0); Mean Platelet Volume 11.6 fL (9.4-12.3); Monocytes Absolute Auto 0.4 X10*3/uL (0.1-1.2); Monocytes Percent Auto 7.7 % (2-11); Neutrophils Absolute Auto 3.4 x10*3/uL (2.0-8.3); Neutrophils Percent Auto 66.4 % (45-73); Platelet Count 217 X10*3/uL (160-400); Red Blood Count 4.85 X10*6/uL (4.20-5.50); Red Cell Distribution Width 15.4 % (11.0-16.0); White Blood Count 5.1 X10*3/uL (4.8-10.8)
[2024-03-07 17:25] LABS: Appearance Urine Clear; Color Urine Yellow; Glucose Urine UA Negative (Negative); Leukocyte Esterase Urine Negative (Negative); Nitrite Urine Negative (Negative); PH 5.5 (5.0-9.0); Urine Blood Negative (Negative); Urine Ketones Negative (Negative); Urine Protein Negative (Neg-Trace)
[2024-03-07 17:27] LABS: Bacteria Urine None Seen (None Seen); Hyaline Casts Urine 0-2 /LPF (0-2); RBC Urine 0-2 /HPF (0-2); Squamous Epithelial Cell Urine 0-2 /HPF (0-2); WBC Urine 0-5 /HPF (0-5)
[2024-03-07 17:41] LABS: Alanine Aminotransferase 59 U/L (0-31); Albumin Level 4.1 g/dL (3.5-5.0); Alkaline Phosphatase 64 U/L (39-117); Anion Gap 9 (12-20); Aspartate Amino Transferase 37 U/L (5-31); Bilirubin Total 0.2 mg/dL (0.0-1.0); Blood Urea Nitrogen 15 mg/dL (9-16); C Reactive Protein 0.47 mg/dL (< or = 0.50); Calcium 9.6 mg/dL (8.4-10.2); Carbon Dioxide 27 mmol/L (22-29); Chloride 107 mmol/L (96-108); Estimated Glomerular Filt Rate > 60; Glucose Random 98 mg/dL (60-115); Potassium 4.3 mmol/L (3.3-5.1); Sodium 139 mmol/L (135-145); Total Protein 7.4 g/dL (6.5-8.0)
[2024-03-07 17:42] LABS: Total Protein Urine Random < 7 mg/dL (<12)
[2024-03-07 17:44] LABS: Erythrocyte Sedimentation Rate 27 MM/HR (0-20)
[2024-03-08 10:49] LABS: Complement C3 158 mg/dL (83-193)
[2024-03-09 17:18] LABS: Anti DNA DS Antibody 1 IU/mL
== END 2024-03-07 15:37 | disposition home or self-care (01) ==
LOC: HO.LAB 15:36
PROVIDERS: PCP Family Medicine; Visit Provider Student in an Organized Health Care Education/Training Program
DX: M32.9 Systemic lupus erythematosus, unspecified (principal); M79.7 Fibromyalgia; Z79.899 Other long term (current) drug therapy; Z51.81 Encounter for therapeutic drug level monitoring; R74.01 Elevation of levels of liver transaminase levels
CPT/HCPCS: 36415; 80053; 81001; 82570; 84156; 85025; 85652; 86140; 86160; 86225; 99212

== ENCOUNTER 2024-07-07 13:26 | Outpatient (REF) | payer MEDICARE, MEDICAID, SELFPAY ==
[2024-07-07 14:51] LABS: MANUAL DIFF FLAG NO
[2024-07-07 15:03] LABS: Basophils Absolute Auto 0.1 X10*3/uL (0.0-0.2); Eosinophils Absolute Auto 0.1 X10*3/uL (0.0-0.4); Eosinophils Percent Auto 2.8 % (0-4); Hematocrit 37.8 % (37.0-47.0); Hemoglobin 12.3 g/dl (12.0-16.0); Imm Gran Abs Auto 0.01 X10*3/uL (0.00-0.03); Imm Gran Pct Auto 0.2 % (0.0-0.4); Lymphocytes Absolute Auto 1.2 X10*3/uL (1.2-4.9); Lymphocytes Percent Auto 24.2 % (20-40); Mean Corpuscular HGB Conc 32.5 g/dl (31.0-35.0); Mean Corpuscular Hemoglobin 25.6 pg (27.0-33.0); Mean Corpuscular Volume 78.8 fL (80.0-98.0); Mean Platelet Volume 11.5 fL (9.4-12.3); Monocytes Absolute Auto 0.3 X10*3/uL (0.1-1.2); Monocytes Percent Auto 6.8 % (2-11); Neutrophils Absolute Auto 3.3 x10*3/uL (2.0-8.3); Platelet Count 217 X10*3/uL (160-400); Red Cell Distribution Width 14.6 % (11.0-16.0)
[2024-07-07 15:43] LABS: Erythrocyte Sedimentation Rate 23 MM/HR (0-20)
--- OUTSIDE RECORDS SUMMARY | 2024-07-07 16:06 | XMS_ITS | Clinical Summary ---
Author Organization [address] Address [address] [place] [phone] Phone Care Team Providers Care Railroad Operator Name Role Phone Radha Rico MD Primary [...] (BMI) of 35.0 to 35.9 in adult ([facility]) Inject 2 mg under the skin every [...] 10/14/2011 Overview (05/26/2024): Following with sleep medicine [facility] Assessment & Plan (05/18/2024 4:57 PM EST): Continue follow-up with sleep medicine [facility]. See HPI Steatosis of liver 10/14/2011 Overview [...] PM EST Hospital Encounter Radiology Department - [address] [phone] Pelvic pain Discharge Disposition: Home or Self Care 06/05/2024 1:30 PM EST Office Visit Obstetrics and Gynecology - [address] [phone] Raina Garcia CNM Encounter for gynecological examination without abnormal finding (Primary Dx); Pelvic pain; Vaginal dryness 05/30/2024 2:41 PM EST - 05/30/2024 11:59 PM EST Hospital Encounter Radiology Department - [address] [phone] Spinal stenosis of lumbar region with neurogenic claudication Discharge Disposition: Home or Self Care 05/18/2024 3:25 PM EST - 05/18/2024 11:59 PM EST Hospital Encounter XRAY - [address] [phone] Acute left-sided thoracic back pain Discharge Disposition: Home or Self Care 05/18/2024 3:25 PM EST - 05/18/2024 11:59 PM EST Hospital Encounter XR[address] [phone] Spinal stenosis of lumbar region with neurogenic claudication Discharge Disposition: Home or Self Care 05/18/2024 2:30 PM EST Office Visit Adult Medicine [facility] - [address] [phone] Radha Rico MD Type 2 diabetes mellitus with neurological manifestations, controlled ([facility]) (Primary Dx); Hyperlipidemia LDL goal <70; Class [...] left-sided thoracic back pain 04/11/2024 Telephone [facility] [address] [place] [address] Radha Rico MD Referral (Received routine [facility] referral.) from Last 3 Months Immunizations Name Administration Dates Next Due HepB-CpG (Heplisav-B) 18yo and older 03/01/2024 Hepatitis B (Tvmkoju-N-Fblzd , Recombivax HB-Adult) 19yo and older 02/02/2024 [...] 9:30 AM EDT Clinical Support Adult Medicine [address] [phone] 08/03/2024 1:00 PM EDT Appointment Radiology Department - [address] [phone] 08/16/2024 2:30 PM EDT Office Visit Adult Medicine [address] [phone] Lulu Aiken PA [address] [place] [address] 09/21/2024 8:[address] [facility] [address] [place] [address] Pallavi Vela MD [address] [phone] Health Maintenance Due Date Last Done Comments [...] stenosis of lumbar region with neurogenic claudication [facility] SLEEP STUDY ATTENDED 05/08/2024 MICROALBUMIN CREATININE URINE [...] Signed Date: 06/07/2024 09:17 ET Workstation ID: [id number] Transcribed By: Self Edit Transcribed Date: 06/07/2024 [...] Signed Date: 06/07/2024 09:17 ET Workstation ID: [id number] Transcribed By: Self Edit Transcribed Date: 06/07/2024 09:02 ET us Raina Garcia CNM IMG US PROCEDURES Final Result * Chlamydia trachomatis and neisseria gonorrhoeae by tma, thinprep (06/05/2024 1:41 PM EST) N. gonorrhoeae, RNA Probe Negative Negative LAB MICROBIOLOGY METHOD 06/07/2024 1:[address] [facility] Chlamydia, RNA Probe Negative Negative LAB MICROBIOLOGY METHOD 06/07/2024 1:[address] [facility] Brushing/Spatula Cervix uteri structure / Unknown 06/05/2024 1:41 PM EST 06/07/2024 6:37 AM EST Raina Garcia CNM LAB CYTOLOGY ORDERABLES Final Result Performing Organization Address City/[facility]/ZIP Co de Phone Number [facility] [address] [place] [address], [place] [phone] * HPV with reflex genotype (06/05/2024 1:41 PM EST) Pathologist [facility] HPV Negative Negative LAB MICROBIOLOGY METHOD 06/07/2024 2:[address] [facility] Brushing/Spatula Cervix uteri structure / Unknown 06/05/2024 1:41 PM EST 06/07/2024 6:37 AM EST Raina Garcia CNM LAB MOLECULAR DIAGNOSTICS ORDE RABLES Final Result [facility] [address] [place] [address], [place] [phone] * Trichomonas vaginalis antigen (06/05/2024 1:41 PM EST) Trichomonas vaginalis Negative Negative 06/05/2024 7:[address] [facility] Swab Vaginal structure / Unknown Non-blood Collection / Unknown 06/05/2024 1:41 PM EST 06/05/2024 1:41 PM EST us Raina SHAFER LAB MICROBIOLOGY - GENERAL ORD ERABLES Final Result [facility] [address] [place] [address], [place] [phone] * Trichomonas vaginalis molecular study (06/05/2024 1:41 PM EST) Trichomonas vaginalis Negative Negative LAB MICROBIOLOGY METHOD 06/07/2024 2:[address] [facility] Brushing/Spatula Cervix uteri structure / Unknown 06/05/2024 1:41 PM EST 06/07/2024 6:37 AM EST us Raina Garcia [facility] BLOOD ORDERABLES Final Res ult Performing Organization Address [facility]/ZIP Co de Phone Number [facility] [address] [place] [address], [place] [phone] * Wet prep, genital (06/05/2024 1:41 PM EST) Clue Cells, Wet Prep Negative Negative 06/05/2024 7:[address] [facility] Yeast, Wet Prep Negative Negative 06/05/2024 7:[address] [facility] Trichomonas, Wet Prep Indeterminate Negative 06/05/2024 7:[address] [facility] Comment:Refer to Trichomonas antigen. Swab Vaginal structure / Unknown Non-blood Collection / Unknown 06/05/2024 1:41 PM EST 06/05/2024 1:41 PM EST us Raina SHAFER LAB MICROBIOLOGY - GENERAL ORD ERABLES Final Result [facility] [address] [place] [address], [place] [phone] * Pap smear (06/05/2024 1:41 PM EST) Interpretation Negative for intraepithelial lesion or malignancy 06/08/2024 2:[address] [facility] General Categorization Negative 06/08/2024 2:[address] [facility] LMP 06/02/2024 06/08/2024 2:00 PM [facility] Specimen Adequacy Satisfactory for evaluation, endocervical/frank sformation zone component present 06/08/2024 2:00 PM [facility] Pap Methodology Liquid Based Pap Test 06/08/2024 2:00 PM [facility] Disclaimer The Pap test is a screening test which carries an inherent false negative rate. These test results should be correlated with the patient's clinical findings and history. This Pap test was processed using an automated screening system. Technical cytopathology services provided by [facility], at [address] [place] [id number] (CLIA # [id number]/Liam Dorantes MD, Hide Cooking Operator.) 06/08/2024 2:00 PM [facility] Console Pap Interpretation Reported 06/08/2024 2:00 PM [facility] Brushing/Spatula Cervix uteri structure / Unknown 06/05/2024 1:41 PM EST 06/05/2024 1:41 PM EST Raina Garcia CNM LAB CYTOLOGY ORDERABLES Final Result [facility] [address] [place] [address], [place] [phone] * MR Lumbar Spine wo Contrast (05/30/2024 3:33 PM EST) Anatomical Region Laterality Modality L-spine, Spine Magnetic Resonan ce 05/30/2024 3:50 PM EST Impressions 05/30/2024 6:50 PM EST Multilevel degenerative changes. ??Progressive degenerative changes at L3-4. POS - [id number] -------- FINAL REPORT -------- Dictated By: Kalpana Byers Dictated Date: 05/30/2024 15:50 ET Assigned Physician: Kalpana Byers Reviewed and Electronically Signed By: Kalpana Byers Signed Date: 05/30/2024 18:50 ET Workstation ID: [id number] Transcribed By: Self Edit Transcribed Date: 05/30/2024 [...] changes. Progressive degenerative changes atL3-4. POS - [id number] -------- FINAL REPORT -------- Dictated By: Kalpana Byers Dictated Date: 05/30/2024 15:50 ET Assigned Physician: Kalpana Byers Reviewed and Electronically Signed By: Kalpana Byers Signed Date: 05/30/2024 18:50 ET Workstation ID: [id number] Transcribed By: Self Edit Transcribed Date: 05/30/2024 16:25 ET us Radha Rico MD IMG MRI PROCEDUR ES Final Result * XR Thoracic Spine 2 Views (05/18/2024 3:42 PM EST) Anatomical Region Laterality Modality Spine, T-spine Radiographic Darlene ging 05/19/2024 12:3 1 AM EST Impressions 05/19/2024 12:35 AM EST Mild degenerative changes. POS - [id number] -------- FINAL REPORT -------- Dictated By: Kalpana Byers Dictated Date: 05/19/2024 00:31 ET Assigned Physician: Kalpana Byers Reviewed and Electronically Signed By: Kalpana Byers Signed Date: 05/19/2024 00:35 ET Workstation ID: [id number] Transcribed By: Self Edit Transcribed Date: 05/19/2024 [...] intact. IMPRESSION: Mild degenerative changes. POS - [id number] -------- FINAL REPORT -------- Dictated By: Kalpana Byers Dictated Date: 05/19/2024 00:31 ET Assigned Physician: Kalpana Byers Reviewed and Electronically Signed By: Kalpana Byers Signed Date: 05/19/2024 00:35 ET Workstation ID: [id number] Transcribed By: Self Edit Transcribed Date: 05/19/2024 00:31 ET Radha Rico MD IMG XR PROCEDURE S Final Result * XR Lumbar Spine 4+ Views (05/18/2024 3:42 PM EST) Anatomical Region Laterality Modality Spine, L-spine Radiographic Darlene ging 05/19/2024 12:2 5 AM EST Impressions 05/19/2024 12:31 AM EST Mild degenerative changes. POS - [id number] -------- FINAL REPORT -------- Dictated By: Kalpana Byers Dictated Date: 05/19/2024 00:25 ET Assigned Physician: Kalpana Byers Reviewed and Electronically Signed By: Kalpana Byers Signed Date: 05/19/2024 00:31 ET Workstation ID: [id number] Transcribed By: Self Edit Transcribed Date: 05/19/2024 [...] S1. IMPRESSION: Mild degenerative changes. POS - [id number] -------- FINAL REPORT -------- Dictated By: Kalpana Byers Dictated Date: 05/19/2024 00:25 ET Assigned Physician: Kalpana Byers Reviewed and Electronically Signed By: Kalpana Byers Signed Date: 05/19/2024 00:31 ET Workstation ID: [id number] Transcribed By: Self Edit Transcribed Date: 05/19/2024 00:25 ET Radha Rico MD IMG XR PROCEDURE S Final Result * General sleep study (05/08/2024) us Provider [facility] ORDERABLES Final Result * Microalbumin creatinine urine ratio (03/27/2024 9:30 AM EST) Creatinine, Urine 49.0 mg/dL LAB CHEMISTRY METHOD 03/27/2024 4:[address] [facility] Microalb, Ur <5.0 0.0 - 29.0 mg/L LAB CHEMISTRY METHOD 03/27/2024 4:[address] [facility] Microalb/Creat Ratio <10 <30 mg/g creat LAB CHEMISTRY METHOD 03/27/2024 4:[address] [facility] Urine Urine specimen obtained by clean catch procedure / Unknown Non-blood Collection / Unknown 03/27/2024 9:30 AM EST 03/27/2024 9:39 AM EST Lulu RUFF LAB URINE ORDERABLES Final Re sult [facility] [address] [place] [address], [place] [phone] * Hemoglobin A1c (03/27/2024 9:30 AM EST) Hemoglobin A1C 5.2 <6.5 % LAB CHEMISTRY METHOD 03/27/2024 2:[address] [facility] Mean Bld Glu Estim. 103 mg/dL LAB CHEMISTRY METHOD 03/27/2024 2:23 PM [facility] Blood Venous blood specimen / Unknown Venipuncture / Unknown 03/27/2024 9:30 AM EST 03/27/2024 9:39 AM EST us Lulu RUFF LAB BLOOD ORDERABLES Final Re sult [facility] [address] [place] [address], * (ABNORMAL) Basic metabolic panel (03/27/2024 9:30 AM EST) Sodium 137 133 - 145 mmol/L LAB CHEMISTRY METHOD 03/27/2024 1:30 PM [facility] Potassium 4.3 3.5 - 5.5 mmol/L LAB CHEMISTRY METHOD 03/27/2024 1:30 PM [facility] Chloride 106 96 - 110 mmol/L LAB CHEMISTRY METHOD 03/27/2024 1:30 PM [facility] CO2 24 21 - 32 mmol/L LAB CHEMISTRY METHOD 03/27/2024 1:30 PM [facility] Anion Gap 7 3 - 11 LAB CHEMISTRY METHOD 03/27/2024 1:30 PM [facility] Glucose 102(H) 70 - 100 mg/dL LAB CHEMISTRY METHOD 03/27/2024 1:30 PM [facility] BUN 13 5 - 25 mg/dL LAB CHEMISTRY METHOD 03/27/2024 1:30 PM [facility] Creatinine 0.83 0.50 - 1.10 mg/dL LAB CHEMISTRY METHOD 03/27/2024 1:30 PM [facility] eGFR 88 >=60 mL/min/1. 73m2 LAB CHEMISTRY METHOD 03/27/2024 1:30 PM [facility] Comment:Calculation based on the??Chronic Kidney Disease Epidemiology Collaboration (CKD-EPI) equation refit??without adjustment for race. BUN/Creatinine Ratio 15.7 LAB CHEMISTRY METHOD 03/27/2024 1:[address] [facility] Calcium 9.6 8.5 - 10.5 mg/dL LAB CHEMISTRY METHOD 03/27/2024 1:[address] [facility] Blood Venous blood specimen / Unknown Venipuncture / Unknown 03/27/2024 9:30 AM EST 03/27/2024 9:39 AM EST Result [facility] Lulu RUFF LAB BLOOD ORDERABLES Final Re sult [facility] [address] [place] [address], * Hepatitis C Screening (01/18/2024) [facility] Hepatitis C Screening abstracted Result [facility] Provider HEALTH MAINTENANCE Final Result * (ABNORMAL) Lipid panel (01/18/2024) [facility] LDL/HDL Ratio 4 0 - 4 Triglycerides 111 0 - 150 mg/dL Cholesterol 247(A) 0 - 200 mg/dL HDL 64 >=40 mg/dL LDL Cholesterol 161(A) 0 - 100 mg/dL Blood Venous blood specimen / Unknown Result [facility] Provider LAB BLOOD ORDERABLES Gloria l Result * Diabetes Eye Exam (11/10/2023) [facility] Diabetes: Annual Retina Eye Exam abstracted Result [facility] Provider HEALTH MAINTENANCE Final Result * Depression Screening (10/22/2023) [facility] Depression Screening abstracted Result [facility] Provider HEALTH MAINTENANCE Final Result * [...] S Final Result * HIV Screening (02/05/2017) [facility] HIV Screening abstracted Historical Provider HEALTH MAINTENANCE Final Result from Last 3 Months or Most Recently Relevant to Health Maintenance Insurance MEDICAID - [place] MEDICARE Care Teams Railroad Operator Relationship Specialty Start Date End Date Radha Rico, MD [address] [place], [place] [address] PCP - General Internal Medicine 11/12/21
--- OUTSIDE RECORDS SUMMARY | 2024-07-07 16:06 | XMS_ITS | Encounter Summary ---
Author Organization [facility] [place] [address] Care Team Providers Care Telehealth Director Name Role Phone Radha Rico MD Primary Care Pr ovider Reason for Visit * Imaging (Routine) - Closed Specialty Diagnoses / Procedures Referred By Contac t Referred To Contact Radiology Diagnoses Pelvic pain Procedures US Pelvis Non OB Complete w Transvaginal US Pelvis Non OB Complete Raina Garcia, [address] Phone: tel: fax: [address] Phone: tel: Referral ID Status Reason Start Date Expiration Date Visits Re quested Visits Authorized [id number] Closed 06/05/2024 06/05/2025 1 1 Encounter Details Date Type Department Care Team (Latest Contact Info) Description 06/06/2024 5:21 PM EST - 06/06/2024 11:59 PM EST Hospital Encounter Radiology Department - [address] [phone] Pelvic pain Discharge Disposition: Home or Self [...] (BMI) of 35.0 to 35.9 in adult ([facility]) Inject 2 mg under the [...] 9:30 AM EDT Clinical Support Adult Medicine [address] [phone] 08/03/2024 1:00 PM EDT Appointment Radiology Department [address] [phone] 08/16/2024 2:30 PM EDT Office Visit Adult Medicine [address] [phone] Lulu Aiken PA [address] [place] [address] 09/21/2024 8:00 AM EDT Appointment [facility] Endoscopy [address] [place] [id number] Pallavi Vela MD [address] [phone] documented as of this encounter Procedures Procedure [...] Signed Date: 06/07/2024 09:17 ET Workstation ID: [id number] Transcribed By: Self Edit Transcribed Date: 06/07/2024 [...] Signed Date: 06/07/2024 09:17 ET Workstation ID: [id number] Transcribed By: Self Edit Transcribed Date: 06/07/2024 09:02 ET us Raina SHAFER IM US PROCEDURES Final Result documented in this encounter Visit Diagnoses Diagnosis Pelvic pain Encounter for screening mammogram for breast cancer documented in this encounter Care Teams Telehealth Director Relationship Specialty Start Date End Date Radha Rico MD [address] [place], [place] PCP - General Internal Medicine 11/12/21 documented as of this encounter
--- OUTSIDE RECORDS SUMMARY | 2024-07-07 16:06 | XMS_ITS | Clinical Summary ---
Author Organization [facility] Address [address] [place] [address] Care Team Providers Care Art History Professor Name Role Phone Artis Quevedo MD Primary Care Provider [phone] Allergies Active Allergy Reactions Criticality Noted Date [...] age to complete this topic Care Teams Art History Professor Relationship Specialty Start Date End Date Artis Quevedo MD PCP - General Internal Medicine 03/12/20
[2024-07-07 17:22] LABS: Alanine Aminotransferase 60 U/L (0-31); Alkaline Phosphatase 62 U/L (39-117); Anion Gap 10 (12-20); Aspartate Amino Transferase 39 U/L (5-31); Bilirubin Total 0.2 mg/dL (0.0-1.0); Blood Urea Nitrogen 17 mg/dL (9-16); C Reactive Protein 0.41 mg/dL (< or = 0.50); Calcium 9.4 mg/dL (8.4-10.2); Carbon Dioxide 25 mmol/L (22-29); Chloride 109 mmol/L (96-108); Estimated Glomerular Filt Rate > 60; Glucose Random 116 mg/dL (60-115); Potassium 4.4 mmol/L (3.3-5.1); Sodium 140 mmol/L (135-145); Total Protein 7.6 g/dL (6.5-8.0)
[2024-07-08 04:21] LABS: HBS Num1 > 1000.00 mIU/mL (0-7.99); HBc Num1 0.08 S/CO (0.00-0.79); HBsAGNum1 0.22 S/CO (0.00-0.99); Hepatitis A Antibody IgM 0.17 Index (0-0.79); Hepatitis B Core Antibody Nonreactive (Nonreactive); Hepatitis B Surface Antigen Negative (Negative); ~HepC Num1 0.13 S/CO (0.00-0.79); ~Hepatitis A Antibody IgM Nonreactive (Nonreactive); ~Hepatitis B Surface Antibody REACTIVE (Nonreactive); ~Hepatitis C Antibody Nonreactive (Nonreactive)
[2024-07-10 11:39] LABS: Complement C3 153 mg/dL (83-193)
[2024-07-11 00:44] LABS: TS Negative Control Passed; TS Panel A 0; TS Panel B 0; TS Positive Control Passed; TSpotTB Negative (Negative)
== END 2024-07-07 13:27 | disposition home or self-care (01) ==
LOC: HO.LAB 13:26
PROVIDERS: PCP Family Medicine; Visit Provider Student in an Organized Health Care Education/Training Program
DX: M32.9 Systemic lupus erythematosus, unspecified (principal); M79.7 Fibromyalgia; Z51.81 Encounter for therapeutic drug level monitoring; Z79.899 Other long term (current) drug therapy
CPT/HCPCS: 36415; 80053; 85025; 85652; 86140; 86160; 86481; 86704; 86706; 86709; 86803; 87340; 99212

== ENCOUNTER 2024-07-07 13:26 | Outpatient (AMB) | payer MEDICARE, MEDICAID, SELFPAY ==
[2024-07-07 13:51] VITALS: BP 120/70; PULSE 78; O2SAT 98; BMI 33.3
--- NOTE | 2024-07-07 13:51 | MHC.OFFVIS ---
Vital Signs 07/07/24 13:51 Height 5 ft 2 in Weight 181 lb 14.102 oz BMI 33.3 BP 120/70 Blood Pressure Location Lt brachial Position Sitting Pulse 78 Pulse Source Pulse Oximeter Pulse Oximetry (%) 98 Oxygen Delivery Method Room Air Intake Visit Reasons: SLE Intake Note: Patient last seen by Doctor Myles Lyman on 03/07/24. Presents today for SLE follow up and test results. Allergies MORPHINE Allergy (Intermediate, Uncoded 07/07/24 13:53) Palpitations Medication List - Last Reconciled 07/07/24 by Kiara Peterson MD albuterol sulfate 2.5 mg inhalation Q4-6H PRN atorvastatin 80 mg PO DAILY clotrimazole-betamethasone 1-0.05 % 1 appl topical BID 2 weeks hydroxychloroquine 200 mg PO BID omeprazole 40 mg PO DAILY oxycodone 5 mg PO BID PRN pramipexole 0.125 mg PO TID pregabalin 50 mg PO DAILY semaglutide (Rybelsus) 7 mg PO DAILY semaglutide (Ozempic) 2 mg subcut QWEEK sertraline 225 mg PO DAILY topiramate 150 mg PO BID HPI Comments Details: Patient is a 44-year-old female with hyperlipidemia, migraine headaches, fibromyalgia and systemic lupus erythematosus here today for follow up Interval History: Patient last seen 03/07/[address] Lyman. At that time she was on hydroxychloroquine 400 mg daily and azathioprine was discontinued. Reported that she was doing reasonably well without any joint pain or swelling. Was on Ozempic and had a weight loss of about 22 lb Today patient states that since stopping the azathioprine she has been noticing increased body aches and intermittent rashes No oral or nasal ulcers Rheumatologic History: dx 2016 ( CHIKIS 1-640 homogeneous, malar rash, oral ulcers, fatigue body aches) on HCQ +AZA since 2016 AZA dose increased to 150 mg 04/16 reduced to 100 mg 06/2023 due to transaminitis Initial history: The patient returns for follow-up after completion of her diagnostic workup. She stated that about 1 week ago she started having left-sided chest pain radiating to her left shoulder. The pain is worse when she takes a shower and tries to relax. The pain is not exacerbated with exertion. She stated she had similar chest pain about a year ago in February 2021, she went to her PCP and had similar chest pain. She was referred for an exercise EKG stress test which was unremarkable. She has had left upper quadrant abdominal pain for more than 1 year. She had an abdominal ultrasound last year which showed mild splenomegaly. Initial history: This is 41-year-old female with a complex past medical history including SLE diagnosed around 2016 with malar rash, positive CHIKIS fatigue and body aches. She was being seen by Dr. Peterson at [place]. Last seen in 2020. she had been on hydroxychloroquine 1 tablet twice daily For 3 years as well as azathioprine but she is unsure how long she has been on azathioprine. she does get her eyes checked yearly for Plaquenil screening. Patient states she has chronic diffuse body aches most severe pain is in her lower back. lidocaine patch helps. She is on pregabalin as well. She denies any recent rashes, oral ulcers, blood or froth in urine. She also mentions her hands turning blue in the cold. This also started around the time she was diagnosed with lupus. Denies any history of digital ulcers. No history of DVT/ PE Current Rheumatology Medication(s): Plaquenil 200 mg twice a day Pregabalin 50mg nightly PFSH Medical History Migraine Asthma Dyslipidemia Obstructive sleep apnea Carpal tunnel syndrome Depression Anxiety Gastroparesis Fibromyalgia, primary Lumbar spinal stenosis GERD (gastroesophageal reflux disease) Type 2 diabetes mellitus SLE (systemic lupus erythematosus) Restless leg syndrome Surgical History delivery delivered Family History Mother Cataract Glaucoma Arthritis Breast cancer Maternal Grandfather Asthma Myocardial infarct Paternal Grandfather Coronary artery disease Social History Household Members: Significant Other Housing: House Alcohol intake: never Patient Tobacco Use Status: Former Tobacco user Years Smoked: quit 18 years ago e-Cigarette/Vaping Use: Never Used service: No Current occupational status: disabled Current occupation: Formerly worked in [employer] Review of Systems Const Details: Review of Systems Constitutional: Denies fever, chills, weight loss ENT: Denies vision changes, eye pain or eye redness, dental caries, dry mouth GI: Denies nausea, vomiting, diarrhea, abdominal pain, change in BM Pulm: Denies SOB, [place], hemoptysis, wheezing Cards: Denies chest pain, palpitations Skin: Denies Raynaud's, rash, nail changes, photosensitivity, GLOVE FORMER: Denies headaches, weakness, paresthesias, recurrent falls MSK: as per HPI All other systems reviewed and are unremarkable except noted above Physical Exam Vital Signs: Last Vital Signs Pulse 78 07/07/24 13:51 BP 120/70 07/07/24 13:51 Pulse Ox 98 07/07/24 13:51 Oxygen Delivery Method Room Air 07/07/24 13:51 BMI result Body Mass Index 33.3 Vital signs reviewed Physical Examination CONSTITUITIONAL Patient alert and cooperative. Well appearing and in no apparent painful distress HEENT Conjunctiva and sclera clear. ?Pupils equal round and reactive to light. ?No lymphadenopathy. ? CHEST/RESPIRATORY SYSTEM Normal respiratory effort and able to speak in complete sentences. ?Clear to auscultation bilaterally. ?No crackles, rales, rhonchi, wheezes heard. CARDIAC SYSTEM Regular rate and rhythm. ?S1 and S2 heard no murmurs. ?Radial pulses intact bilaterally MSK Hands: ?Good fixed route operator strength bilaterally. No deformities noted. ?No synovitis noted to the MCPs, PIPs or DIPs. ?Tenderness to palpation of the 3rd MCP on the right and the 2nd MCP on the left. Wrists: ?Full range of motion at the wrists without pain. ?Tenderness to palpation of the left wrist. Elbows: Full range of motion without pain. No tenderness, weakness, swelling, increased warmth or erythema. Shoulders: Full range of motion without pain. No tenderness, weakness, swelling, increased warmth or erythema. Hips: Full range of motion without pain. Hip bursa: Tenderness to palpation Knees: ?Full range of motion. ?No tenderness, swelling, increased warmth or erythema.?No effusion or crepitations Ankles: Full range of motion. ?No tenderness, swelling, increased warmth or erythema.? Feet: ?Negative squeeze test. ?No tenderness to palpation or swelling of the MTPs. Tender points:?Tenderness to palpation of the bilateral trapezius, supraspinatus, greater trochanters, anterior costochondral junctions, bilateral gluteal areas, bilateral suboccipital muscle insertions SKIN No rash noted to face however patient states that this is an worse Results Reviewed Results Reviewed: Laboratory Tests 12/16/23 03/07/24 10:24 16:45 WBC 5.1 RBC 4.85 Hgb 12.5 Hct 39.3 Plt Count 217 ESR 26 H 27 H Sodium 139 Potassium 4.3 Chloride 107 Carbon Dioxide 27 BUN 15 Creatinine 0.78 Calcium 9.6 Total Bilirubin 0.2 AST 37 H ALT 59 H C-Reactive Protein 0.88 H 0.47 Lupus monitoring labs 03/07/24 16:45 Double Strand DNA Ab 1 Complement C3 158 Complement C4 32 Urine test 03/07/24 16:40 Urine Protein Negative Urine Blood Negative U Random Total Protein < 7 Protein/Creatinin Ratio TNP Assessment & Plan Assessment & Plan (1) SLE (systemic lupus erythematosus): Comment: dx 2017 ( CHIKIS 1-640 homogeneous, malar rash, oral ulcers, fatigue body aches) on HCQ +AZA since 2016 AZA dose increased to 150 mg 04/16 reduced to 100 mg 06/2023 due to transaminitis Code(s): M32.9 - Systemic lupus erythematosus, unspecified Category: Medical Qualifiers: Systemic lupus erythematosus type: unspecified Systemic lupus erythematosus organ involvement: unspecified Qualified Code(s): M32.9 - Systemic lupus erythematosus, unspecified Plan: #SLE Patient is a 44-year-old female with SLE currently in remission. She has a couple tender MCPs but there is no obvious synovitis at this time. I had a discussion with the patient as I do believe her fibromyalgia symptoms are more prominent than potential inflammatory arthritis/SLE type symptoms. I discussed treating the fibromyalgia with increased doses of pregabalin versus additionally adding medication for lupus. Patient is in agreement that she wants to treat be fibromyalgia and see how that goes prior to changing or adding any new medications. Plan - Plaquenil 200mg bid - Labs today: CBC, CMP, ESR, CRP, C3, C4, dsDNA, UA, UPC - RTC 4 months - Labs before visit: CBC, CMP, ESR, CRP, C3, C4, dsDNA, UA, UPC (2) Fibromyalgia, primary: Code(s): M79.7 - Fibromyalgia Category: Medical Plan: #Fibromyalgia Patient is mildly active fibromyalgia today as evidenced by multiple tender points on examination. Discussed escalating therapy with increasing doses of pregabalin and patient is on board with this. We will initially start with 100 mg nightly and then adding an additional 50 mg in the morning if tolerated. 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 Category: Medical Plan: #Long-term Use of Hydroxychloroquine Discussed with patient the risks and benefits of hydroxychloroquine in managing the rheumatic condition Benefits include: - Reduced pain, reduce mortality, maintenance of remission and reduction of flares Risks include: - GI upset, skin hyperpigmentation, retinal toxicity (especially after more than 5 years of use), myopathy Advised yearly ophthalmology visits Plan I spent 32 minutes reviewing the record and labs, taking a history, examining the patient, discussing the treatment plan, ordering diagnostic work up and documenting in the medical record Orders: Orders Complement C4 Today M32.9 - Systemic lupus erythematosus, unspecified C Reactive Protein Today M32.9 - Systemic lupus erythematosus, unspecified Erythrocyte Sedimentation Rate Today M32.9 - Systemic lupus erythematosus, unspecified Hepatitis A,B,C Profile Today M32.9 - Systemic lupus erythematosus, unspecified Complement C3 Today M32.9 - Systemic lupus erythematosus, unspecified Complete Blood Count Auto Diff Today M32.9 - Systemic lupus erythematosus, unspecified Comprehensive Met. Panel Today M32.9 - Systemic lupus erythematosus, unspecified T Spot TB Today M32.9 - Systemic lupus erythematosus, unspecified Medications: Changed From pregabalin 50 mg PO DAILY 30 caps 3RF M79.7 - Fibromyalgia To pregabalin Take 2 tablets at night and 1 tablet in the morning 150 mg (3 x 50 mg) PO DAILY 30 caps 3RF M79.7 - Fibromyalgia Refilled hydroxychloroquine 200 mg PO BID 180 tabs 1RF M32.9 - Systemic lupus erythematosus, unspecified Coding Level of Care Code Est Pt Level 4 (71053) Complex EM visit Add On G2211 Diagnoses Systemic lupus erythematosus, unspecified SLE type, unspecified organ involvement status M32.9 Systemic lupus erythematosus type: unspecified Systemic lupus erythematosus organ involvement: unspecified Fibromyalgia, primary M79.7 Encounter for monitoring of hydroxychloroquine therapy Z51.81; Z79.899
--- OUTSIDE RECORDS SUMMARY | 2024-07-07 15:02 | XMS_ITS | Clinical Summary ---
Author Organization [facility] Address [address] [place] [address] Care Team Providers Care Shoe Clerk Name Role Phone Artis Quevedo MD Primary Care Provider Allergies Active Allergy Reactions Criticality Noted Date Comments Morphine 04/02/2020 Medications Medication Sig Dispensed Refills Start Date End Date Status sertraline (ZOLOFT) 100 MG tablet Take 200 mg by mouth daily. 0 Active azaTHIOprine (IMURAN) 50 MG tablet Take 50 mg by mouth 2 (two) times a day. 0 Active oxyCODONE-acetamino phen (PERCOCET) 5-325 MG per tablet Take 1 tablet by mouth every 6 (six) hours as needed for pain. 0 Active metFORMIN (GLUCOPHAGE) tablet 500 mg Take 1,000 mg by mouth 2 (two) times a day with meals. 0 Active atorvastatin (LIPITOR) tablet 80 mg Take 80 mg by mouth daily. 0 Active topiramate (TOPAMAX) 25 MG tablet Take 25 mg by mouth 2 (two) times a day. 0 Active hydroxychloroquine (PLAQUENIL) 200 MG tablet Take 200 mg by mouth 2 (two) times a day. 0 Active HM LIDOCAINE PATCH EX Apply 3 patches topically daily. 0 Active albuterol (PROVENTIL HFA;VENTOLIN HFA) 108 (90 Base) MCG/ACT inhaler Inhale 2 puffs into the lungs every 6 (six) hours as needed for wheezing. 0 Active pregabalin (LYRICA) capsule 50 mg Take 50 mg by mouth every night at bedtime. 0 Active omeprazole (PriLOSEC) 40 MG capsule Take 40 mg by mouth daily. 0 Active pramipexole (MIRAPEX) 0.125 MG tablet Take 0.125 mg by mouth 3 (three) times a day. 0 Active doxepin (SINEquan) 25 MG capsule Take 50 mg by mouth every night at bedtime. 0 Active hydrOXYzine (ATARAX) 50 MG tablet Take 50 mg by mouth 3 (three) times a day as needed for itching. 0 Active mirtazapine (REMERON) 15 MG tablet Take 15 mg by mouth every night at bedtime. 0 Active meclizine (ANTIVERT) 25 MG tablet Take 25 mg by mouth 3 (three) times a day as needed. 0 Active docusate sodium (COLACE) 100 MG capsule Take 1 capsule (100 mg total) by mouth 2 (two) times a day as needed for constipation. 60 capsule 1 04/16/2020 Active Active Problems Problem Noted Date Diagnosed Date Anemia 04/03/2020 Fibromyalgia 04/03/2020 Diabetic gastroparesis 10/24/2018 Type 2 diabetes mellitus wit h neurological manifestations, controlled 06/04/2018 Overview: Overview: Carpal tunnel syndrome Systemic lupus erythematosus 09/14/2017 Overview: Overview: Pos CHIKIS, athralgias, facial rash Hydroxychloroquine started 08/11 azathioprine added 12/11 CTS (carpal tunnel syndrome) 07/21/2017 Overview: Overview: Bilateral left worse per EMG GERD (gastroesophageal reflux disease) 7 Family history of breast cancer 11/08/2013 Overview: Overview: Patient went for BRCA testing, but it was cancelled due to her insurance not paying for the test Elevated liver enzymes 11/13/2011 Asthma 10/14/2011 Depression 10/14/2011 Overview: Overview: Boogie Mcmillan H. pylori infection 10/14/2011 Headache 10/14/2011 Hyperlipidemia with target l ow density lipoprotein (LDL) cholesterol less than 100 mg/dL 10/14/2011 Overview: Overview: IMO update PINA (obstructive sleep apnea) 10/14/2011 Overview: Overview: Cpap, Spinal stenosis of lumbar region 10/14/2011 Steatosis of liver 10/14/2011 Overview: Overview: Outside lab 07/2011: AST 94, ALT: 136 IMO update Family History Medical History Relation Name Comments Cancer Maternal Aunt Relation Name Status Comments Maternal Aunt Social History Tobacco Use Types Packs/Day Years Used Date Smoking Tobacco: Former Cigarettes Q uit: 08/29/2003 Smokeless Tobacco: Never Alcohol Use Standard Drinks/Week Comments No 0 (1 standard drink = 0.6 oz pur e alcohol) Sex and Gender Information Value Date Recorded Sex Assigned at Female 11/23/2023 11:10 AM EDT Gender Identity Not on file Sexual Orientation Not on file Job Start Date Occupation Industry Not on file Not on file Not on file Last Filed Vital Signs Vital Sign Reading Time Taken Comments Blood Pressure 111/72 07/02/2020 9:38 AM EST Pulse 88 07/02/2020 9:38 AM EST Temperature 36.2 ??C (97.1 ??F) 07/02/2020 9:38 AM ES T Respiratory Rate - - Oxygen Saturation 100% 07/02/2020 9:38 AM EST Inhaled Oxygen Concentration - - Weight 96.3 kg (212 lb 3.2 oz) 07/02/2020 9:38 A M EST Height 157.5 cm (5' 2 ) 07/02/2020 9:38 AM EST Body Mass Index 38.81 07/02/2020 9:38 AM EST Plan of Treatment Health Maintenance Due Date Last Done Comments Hepatitis B Vaccines (1 of 3 - 3-dose series) 1978 Hepatitis C Screening 1978 COVID-19 Vaccine (#1) 1983 Depression Screening 1990 BMI Counseling 02/22/1996 Preventative Health Evaluation 02/22/1996 Cervical Cancer Screening (Pap Smear) 1999 Pneumococcal Vaccine (2 of 2 - PCV) 07/11/2014 07/11/2013 DTap / Tdap / Td (2 - Td or Tdap) 05/17/2022 05/17/2012 Colon Cancer Screening (Colonoscopy) 2023 Influenza Vaccine (#1) 2023 9, 02/22/2018, 02/04/2017, Additional history exists RSV Ped < 20 months Aged Out No longe r eligible based on patient's age to complete this topic Care Teams Shoe Clerk Relationship Specialty Start Date End Date Artis Quevedo MD PCP - General Internal Medicine 03/12/20
--- OUTSIDE RECORDS SUMMARY | 2024-07-07 15:02 | XMS_ITS | Clinical Summary ---
Author Organization [address] Address [address] [place] [phone] Phone Care Team Providers Care Relations Director Name Role Phone Radha Rico MD Primary Care Pr ovider Allergies Active Allergy Reactions Criticality Noted Date Comments Morphine Sulfate Other 10/14/2011 palpatations Medications sertraline (ZOLOFT) 100 mg tablet Take 2 tablets (200 mg total) by mouth 1 (one) time each day. Active hydrOXYzine HCL (ATARAX) 50 mg tablet Take 1 Tablet by mouth. Active albuterol HFA (PROAIR HFA ; PROVENTIL HFA ; VENTOLIN HFA) 90 mcg/actuation inhaler Inhale 2 Puffs into the lungs every 4 hours as needed for Cough or Wheezing. 4 Active pregabalin (LYRICA) 50 mg capsule TAKE 2 CAPSULES BY MOUTH AT BEDTIME. 4 Active hydroxychloroqui ne (PLAQUENIL) 200 mg tablet Take 1 tablet (200 mg total) by mouth 2 (two) times a day. 4 Active topiramate (TOPAMAX) 50 mg tablet TAKE 1 TABLET BY MOUTH EVERY MORNING 90 tablet 1 5 Active pramipexole (MIRAPEX) 0.125 mg tablet TAKE 1 TABLET BY MOUTH 3 TIMES DAILY. 270 tablet 1 5 Active topiramate (TOPAMAX) 100 mg tablet TAKE 1 TABLET BY MOUTH AT BEDTIME 90 tablet 1 5 Active omeprazole (PriLOSEC) [address] capsuleIndicatio ns:Gastroesophag eal reflux disease without esophagitis Take 1 capsule (40 mg total) by mouth 1 (one) time each day. 90 capsule 1 5 Active semaglutide (Ozempic) 2 mg/dose (8 mg/3 mL) injection penIndications:C lass 2 severe obesity due to excess calories with serious comorbidity and body mass index (BMI) of 35.0 to 35.9 in adult ([facility]) Inject 2 mg under the skin every 7 (seven) days. 9 mL 1 5 11/15/19 25 Active cyclobenzaprine (FLEXERIL) 10 mg tabletIndication s:Spinal stenosis of lumbar region with neurogenic claudication Take 1 tablet (10 mg total) by mouth at bedtime as needed for muscle spasms (nighly prn). 60 tablet 5 07/18/19 25 Active atorvastatin (LIPITOR) 80 mg tabletIndication s:Hyperlipidemia LDL goal <70 TAKE 1 TABLET BY MOUTH DAILY. 90 tablet 1 5 Active oxyCODONE-acetam inophen (PERCOCET) 5-325 mg per tablet Take 1 tablet by mouth every 6 (six) hours if needed for severe pain for up to 28 days. Max Daily Amount: 4 tablets 112 tablet 5 07/15/19 25 Active oxyCODONE-acetam inophen (PERCOCET) 5-325 mg per tablet Take 1 tablet by mouth every 8 (eight) hours if needed for severe pain for up to 28 days. Max Daily Amount: 3 tablets 84 tablet 5 06/16/19 25 Discontinu ed(Reorder ) Active Problems Problem Noted Date Diagnosed Date DJD (degenerative joint disease), thoracolumbar 05/19/2024 Class 2 severe obesity with serious comorbidity and body mass index (BMI) of 35.0 to 35.9 in adult 02/09/2024 Assessment & Plan (05/18/2024 4:57 PM EST): Increase Ozempic to 2 mg weekly. So far she has lost a total of about 18 pounds on the Ozempic Orders: semaglutide (Ozempic) 2 mg/dose (8 mg/3 mL) injection pen; Inject 2 mg under the skin every 7 (seven) days. Hyperlipidemia LDL goal <70 10/30/2022 Assessment & Plan (05/18/2024 4:57 PM EST): Hyperlipidemia is poorly controlled. Goal LDL is less than 70. Her recent LDL was 161. She will make an appointment with cardiology for consideration of Repatha. She will continue atorvastatin Orders: atorvastatin (LIPITOR) 80 mg tablet; Take 1 tablet (80 mg total) by mouth 1 (one) time each day. Lipid panel with reflex to direct LDL; Future Migraine 01/23/2022 Assessment & Plan (05/18/2024 4:57 PM EST): Stable. Continue topiramate 50mg QAM and 100mg nightly Restless leg syndrome 01/23/2022 Assessment & Plan (05/18/2024 4:57 PM EST): Stable. Continue pramipexole 0.125 mg 3 times daily Diabetic gastroparesis 10/24/2018 Fibromyalgia 06/29/2018 Assessment & Plan (05/18/2024 4:57 PM EST): Continue pregabalin nightly Type 2 diabetes mellitus wit h neurological manifestations, controlled 06/04/2018 Overview (02/09/2024): Carpal tunnel syndrome Assessment & Plan (05/18/2024 4:57 PM EST): Diabetes is well controlled. Will increase Ozempic to 2 mg weekly for obesity/weight loss benefit. Orders: Comprehensive metabolic panel; Future Hemoglobin A1c; Future Systemic lupus erythematosus 09/14/2017 Overview (02/09/2024): Pos CHIKIS, athralgias, facial rash Hydroxychloroquine started 08/11 Eyes checked 08/2020 azathioprine added 12/11 Assessment & Plan (05/18/2024 4:57 PM EST): Continue follow-up with rheumatology. Continue hydroxychloroquine CTS (carpal tunnel syndrome) 07/21/2017 Overview (02/09/2024): Bilateral left worse per EMG Elevated liver enzymes 11/13/2011 PINA (obstructive sleep apnea) 10/14/2011 Overview (05/26/2024): Following with sleep medicine [facility] Assessment & Plan (05/18/2024 4:57 PM EST): Continue follow-up with sleep medicine [facility]. See HPI Steatosis of liver 10/14/2011 Overview (02/09/2024): Outside lab 07/2011: AST 94, ALT: 136 IMO update H. pylori infection 10/14/2011 Asthma 10/14/2011 Depression 10/14/2011 Overview (02/09/2024): [place] Assessment & Plan (05/18/2024 4:57 PM EST): Continue follow-up with INR clinic. Continue sertraline 200 mg daily Spinal stenosis of lumbar region 10/14/2011 Assessment & Plan (05/18/2024 4:57 PM EST): On CSC for percocet 5-325mg Q8H PRN. Requesting increase in frequency to every 6 hours as needed. The last XRAY L spine done in October 2023 showed : Vertebral bodies are maintained in height. Disc spaces are maintained in height. There are small discogenic spurs at L3-4 level. There is mild hypertrophy of the facet joints at L5-S1 level. No fractures, dislocations or destructive lesions. I advised that an MRI lumbar spine is indicated to assess for any progression in her lumbar stenosis or DJD that is amenable to surgery Will defer increasing the Percocet for now given overall stable findings on x- ray done in October. Another x-ray lumbar spine was ordered today given her fall to rule out any acute findings. Orders: MR Lumbar Spine wo Contrast; Future cyclobenzaprine (FLEXERIL) 10 mg tablet; Take 1 tablet (10 mg total) by mouth at bedtime as needed for muscle spasms (nighly prn). Encounters Date Type Department Care Team Description 06/06/2024 5:21 PM EST - 06/06/2024 11:59 PM EST Hospital Encounter Radiology Department - [address] [phone] Pelvic pain Discharge Disposition: Home or Self Care 06/05/2024 1:30 PM EST Office Visit Obstetrics and Gynecology - [address] [phone] Raina Garcia CNM Encounter for gynecological examination without abnormal finding (Primary Dx); Pelvic pain; Vaginal dryness 05/30/2024 2:41 PM EST - 05/30/2024 11:59 PM EST Hospital Encounter Radiology Department - [address] [phone] Spinal stenosis of lumbar region with neurogenic claudication Discharge Disposition: Home or Self Care 05/18/2024 3:25 PM EST - 05/18/2024 11:59 PM EST Hospital Encounter XRAY - [address] [phone] Acute left-sided thoracic back pain Discharge Disposition: Home or Self Care 05/18/2024 3:25 PM EST - 05/18/2024 11:59 PM EST Hospital Encounter [address] [phone] Spinal stenosis of lumbar region with neurogenic claudication Discharge Disposition: Home or Self Care 05/18/2024 2:30 PM EST Office Visit Adult Medicine [facility] - [address] [phone] Radha Rico MD Type 2 diabetes mellitus with neurological manifestations, controlled ([facility]) (Primary Dx); Hyperlipidemia LDL goal <70; Class 2 severe obesity due to excess calories with serious comorbidity and body mass index (BMI) of 35.0 to 35.9 in adult (CMS/HCC); Fibromyalgia; Spinal stenosis of lumbar region with neurogenic claudication; Migraine without aura and without status migrainosus, not intractable; Systemic lupus erythematosus with other organ involvement, unspecified SLE type (CMS/HCC); Restless leg syndrome; Current mild episode of major depressive disorder, unspecified whether recurrent (CMS/HCC); PINA (obstructive sleep apnea); Gastroesophageal reflux disease without esophagitis; Colon cancer screening; Acute left-sided thoracic back pain 04/11/2024 Telephone [facility] [address] [place] [address] Radha Rico MD Referral (Received routine [facility] referral.) from Last 3 Months Immunizations Name Administration Dates Next Due HepB-CpG (Heplisav-B) 18yo and older 03/01/2024 Hepatitis B (Hofgbyk-K-Qcwcx , Recombivax HB-Adult) 19yo and older 02/02/2024 Influenza Quadravalent, MDCK , 0.5ml, preservative free (Flucelvax) 6mo and older 01/03/2024,01/23/2022,01/13/2019 Influenza Quadravalent, MDCK , 0.5ml, with preservative (Flucelvax) 6mo and older 02/22/2018,02/04/2017 Influenza trivalent, 0.5mL, preservative free (Fluarix; FluLaval; Fluzone) ages 6mo and older (Afluria) 3 years and older 05/01/2016,04/10/2015,02/04/2014,01/31,02/15/2012 Influenza, Unspecified 01/08/2021 Moderna SARS-CoV-2 COVID-19, mRNA, LNP-S, preservative free 03/14/2021,08/02/2020 Pneumococcal polysaccharide 23 valent (Pneumovax 23) 2yo and older 07/11/2013 Tdap Tetanus diptheria acell ular pertussis (Boostrix; Adacel) 7yo and older 07/28/2022,05/17/2012 Surgical History Surgery Date Site/Laterality Comments SECTION PROCEDURE: HISTORICAL ; COMMENT: x1 Medical History Medical History Date Comments Type II or unspecified type diabetes mellitus with unspecified complication, not stated as uncontrolled DX:Type II or unspecified ty pe diabetes mellitus with unspecified complication, not stated as uncontrolled GERD (gastroesophageal reflux disease) 11/06/2016 DX:GERD (gastroesophageal reflux disease) GERD (gastroesophageal reflux disease) 11/06/2016 DX:GERD (gastroesophageal reflux disease) Asthma DX:Asthma Rosacea DX:Rosacea Shingles DX:Shingles Diabetic gastroparesis (CMS/HCC) 10/24/2018 DX:Diabetic gastroparesis (HCC) Covid-19 05/25/2020 DX:COVID-19 Anxiety and depression Family History Medical History Relation Name Comments Breast cancer Aunt 1 maternal-had s econd primary at age 50, also triple neg ative Arthritis Aunt 2 Heart attack Maternal Grandfather Arthritis Mother Cataracts Mother Glaucoma Mother Breast cancer Other 1 maternal cousi n Breast cancer Other 2 maternal cousi n stage 4 Breast cancer Other 3 mom's cousin > 50 Coronary artery disease Paternal Grandfather Asthma Son Colon cancer Neg Hx Ovarian cancer Neg Hx Uterine cancer Neg Hx Relation Name Status Comments Aunt 1 Aunt 2 Father Alive unknown health Maternal Grandfather Mother Alive dm, anemia, hyp erlipid, thyroid, Alzheimer Other 1 Other 2 Other 3 Paternal Grandfather Son Alive Social History Tobacco Use Types Packs/Day Years Used Date Smoking Tobacco: Former Cigarettes 2.5 5.5 1 - 08/29/2003 Smokeless Tobacco: Never Tobacco Cessation:Counseling Given: Not Answered Alcohol Use Standard Drinks/Week Comments No 0 (1 standard drink = 0.6 oz pur e alcohol) Comments No Sex and Gender Information Value Date Recorded Sex Assigned at Not on file Legal Sex Female 5:31 AM EST Gender Identity Not on file Sexual Orientation Not on file Obstetrics History Para Term AB IAB SAB Ectopic Multiple Livin g Live Births 1 Date Outcome GA Total Labor Labor/2nd/3rd Weight Sex Type Anes PTL Brittany A1 A5 Name Clin Term Living Last Filed Vital Signs Vital Sign Reading Time Taken Comments Blood Pressure 118/82 06/05/2024 1:05 PM EST Pulse 77 06/05/2024 1:05 PM EST Temperature 37.1 ??C (98.7 ??F) 05/18/2024 2:38 PM ES T Respiratory Rate 18 05/18/2024 2:38 PM EST Oxygen Saturation - - Inhaled Oxygen Concentration - - Weight 83.5 kg (184 lb) 06/05/2024 1:05 PM EST Height 157.5 cm (5' 2 ) 06/05/2024 1:05 PM EST Body Mass Index 33.65 06/05/2024 1:05 PM EST Plan of Treatment Upcoming Encounters Date Type Department Care Team (Late st Contact Info) Description 08/02/2024 9:30 AM EDT Clinical Support Adult Medicine [address] [phone] 08/03/2024 1:00 PM EDT Appointment Radiology Department - [address] [phone] 08/16/2024 2:30 PM EDT Office Visit Adult Medicine [address] [phone] Lulu Aiken PA [address] [place] [address] 09/21/2024 8:00 AM EDT Appointment [facility]oscopy [address] [place] [address] Pallavi Vela MD [address] [phone] Health Maintenance Due Date Last Done Comments Diabetes: Annual Foot Exam 02/22/1988 Pneumococcal Vaccine: Pediatrics (0 to 5 Years) and At-Risk Patients (6 to 64 Years) (2 of 2 - PCV) 07/11/2014 07/11/2013 Colorectal Cancer Screening: Colonoscopy 04/04/2022 Medicare Annual Wellness Visit 04/04/2022 Social Influencers of Health Screening 04/04/2022 Hepatitis B Vaccines (3 of 3 - 19+ 3-dose series) 08/02/2024 03/01/2024, 02/02/2024 Diabetes: Blood Sugar Control Test (HGBA1C) 09/25/2024 03/27/2024, 01/18/2024, 01/18/2024, Additional history exists Depression Screening 10/21/2024 10/22/2023 Diabetes: Annual Retina Eye Exam 11/09/2024 11/10/2023 Diabetes: Annual Urine Albumin-Creatinine Ratio (uACR) 03/27/2025 03/27/2024, 05/18/2023 Diabetes: Annual GFR (Glomerular Filtration Rate) 03/27/2025 03/27/2024, 01/18/2024, 01/18/2024, Additional history exists Breast Cancer Screening 08/22/2025 08/23/19, 08/23/2023, 07/26/2023, Additional history exists Cholesterol Screening (Lipid Panel) 01/17/2029 01/18/2024, 01/18/2024, 10/25/2023 Cervical Cancer Screening: HPV 06/05/2029 06/05/2024, 07/10/2016 DTaP,Tdap,and Td Vaccines (3 - Td or Tdap) 07/28/2032 07/28/2022, 05/17/2012 HIV Screening Completed 02/05/2017 COVID-19 Vaccine Discontinued 03/14/2021, , 08/02/2020, Additional history exists Influenza Vaccine Completed 01/03/2024, , 01/23/2022, Additional history exists Hepatitis C Screening Completed 01/18/2024 HIB Vaccines Aged Out No longer eligi ble based on patient's age to complete this topic HPV Vaccines Aged Out No longer eligi ble based on patient's age to complete this topic Hepatitis A Vaccines Discontinued IPV Vaccines Aged Out No longer eligi ble based on patient's age to complete this topic MMR Vaccines Aged Out No longer eligi ble based on patient's age to complete this topic Meningococcal ACWY Vaccine Aged Out N o longer eligible based on patient's age to complete this topic Meningococcal B Vacine Aged Out No lo nger eligible based on patient's age to complete this topic RSV Immunization Patients Under 20 months Aged Out No longer eligible based on patient's age to complete this topic Varicella Vaccines Aged Out No longer eligible based on patient's age to complete this topic Procedures Procedure Name Priority Date/Time Associated Diagnosis Comments US PELVIS NON OB COMPLETE W TRANSVAGINAL Routine 06/06/2024 6:03 PM EST Pelvic pain CHLAMYDIA TRACHOMATIS AND NEISSERIA GONORRHOEAE BY TMA, THINPREP Routine 06/05/2024 1:41 PM EST Encounter for gynecological examination without abnormal finding PAP SMEAR Routine 06/05/2024 1:41 PM EST Encounter for gynecological examination without abnormal finding HPV WITH REFLEX GENOTYPE Routine 06/05/2024 1:41 PM EST Encounter for gynecological examination without abnormal finding TRICHOMONAS VAGINALIS PCR Routine 06/05/2024 1:41 PM EST Encounter for gynecological examination without abnormal finding TRICHOMONAS VAGINALIS ANTIGEN Routine 06/05/2024 1:41 PM EST Pelvic pain WET PREP, GENITAL Routine 06/05/2024 1:4 1 PM EST Pelvic pain MR LUMBAR SPINE WO CONTRAST Routine 05/30/2024 3:33 PM EST Spinal stenosis of lumbar region with neurogenic claudication XR THORACIC SPINE 2 VIEWS Routine 05/18/2024 3:42 PM EST Acute left-sided thoracic back pain XR LUMBAR SPINE 4+ VIEWS Routine 05/18/2024 3:42 PM EST Spinal stenosis of lumbar region with neurogenic claudication NC SLEEP STUDY ATTENDED 05/08/2024 MICROALBUMIN CREATININE URINE RATIO Routine 03/27/2024 9:30 AM EST Diabetic gastroparesis (CMS/HCC) Type 2 diabetes mellitus with neurological manifestations, controlled (CMS/HCC) Fibromyalgia Hyperlipidemia LDL goal <70 Elevated liver enzymes Systemic lupus erythematosus (CMS/HCC) BASIC METABOLIC PANEL Routine 03/27/2024 9:30 AM EST Diabetic gastroparesis (CMS/HCC) Type 2 diabetes mellitus with neurological manifestations, controlled (CMS/HCC) Fibromyalgia Hyperlipidemia LDL goal <70 Elevated liver enzymes Systemic lupus erythematosus (CMS/HCC) HEMOGLOBIN A1C Routine 03/27/2024 9:30 AM EST Diabetic gastroparesis (CMS/HCC) Type 2 diabetes mellitus with neurological manifestations, controlled (CMS/HCC) Fibromyalgia Hyperlipidemia LDL goal <70 Elevated liver enzymes Systemic lupus erythematosus (CMS/HCC) HEPATITIS C SCREENING Routine 01/18/2024 LIPID PANEL Routine 01/18/2024 DIABETES EYE EXAM Routine 11/10/2023 DEPRESSION SCREENING Routine 10/22/2023 DIAGNOSTIC MAMMOGRAPHY WITH CAD UNILATERAL Routine 08/23/2023 2:44 PM EDT Other abnormal and inconclusive findings on diagnostic imaging of breast HIV SCREENING Routine 02/05/2017 from Last 3 Months or Most Recently Relevant to Health Maintenance Results * US Pelvis Non OB Complete w Transvaginal (06/06/2024 6:03 PM EST) Anatomical Region Laterality Modality Body, Pelvis Ultrasound 06/07/2024 8:52 AM EST Impressions 06/07/2024 9:17 AM EST 1. Heterogeneous endometrial stripe 2. Trace fluid within the cervix -------- FINAL REPORT -------- Dictated By: Lesvia Gonzales Dictated Date: 06/07/2024 08:52 ET Assigned Physician: Lesvia Gonzales Reviewed and Electronically Signed By: Lesvia Gonzales Signed Date: 06/07/2024 09:17 ET Workstation ID: [id number] Transcribed By: Self Edit Transcribed Date: 06/07/2024 09:02 ET Narrative 06/07/2024 9:17 AM EST EXAM: TRANSABDOMINAL AND TRANSVAGINAL PELVIC ULTRASOUND HISTORY: left lower pelvic pain COMPARISON: Ultrasound pelvis from 08/05/2016 Technique: Grayscale and Doppler images of the pelvis were obtained using transabdominal approach. Transvaginal approach was used to better characterize the ovaries. Color Doppler flow and spectral waveform analysis performed. FINDINGS: The uterus is normal in size and measures 8.6 x 4.3 x 5.2 cm. The heterogeneous endometrial stripe measures up to 0.7 cm. The myometrium is unremarkable. No fibroids visualized. ??Trace fluid within the cervix. ??There appears to be a mass adjacent to the uterus although this represents the adjacent bladder. Right ovary measures 2.8 x 2.4 x 2.2 cm and is sonographically unremarkable. ??Normal arterial waveform is present. ??The venous waveform is not seen. Left ovary measures 2.8 x 2.0 x 3.0 cm and is also sonographically unremarkable. ??Arterial and venous waveforms are not identified. No free fluid. Procedure Note Lesvia Gonzales MD - 06/07/2024 EXAM: TRANSABDOMINAL AND TRANSVAGINAL PELVIC ULTRASOUND HISTORY: left lower pelvic pain COMPARISON: Ultrasound pelvis from 08/05/2016 Technique: Grayscale and Doppler images of the pelvis were obtained usingtransabdominal approach. Transvaginal approach was used to bettercharacterize the ovaries. Color Doppler flow and spectral waveformanalysis performed. FINDINGS: The uterus is normal in size and measures 8.6 x 4.3 x 5.2 cm. Theheterogeneous endometrial stripe measures up to 0.7 cm. The myometrium isunremarkable. No fibroids visualized. Trace fluid within the cervix.There appears to be a mass adjacent to the uterus although this representsthe adjacent bladder. Right ovary measures 2.8 x 2.4 x 2.2 cm and is sonographicallyunremarkable. Normal arterial waveform is present. The venous waveformis not seen. Left ovary measures 2.8 x 2.0 x 3.0 cm and is also sonographicallyunremarkable. Arterial and venous waveforms are not identified. No free fluid. IMPRESSION: 1. Heterogeneous endometrial stripe 2. Trace fluid within the cervix -------- FINAL REPORT -------- Dictated By: Lesvia Gonzales Dictated Date: 06/07/2024 08:52 ET Assigned Physician: Lesvia Gonzales Reviewed and Electronically Signed By: Lesvia Gonzales Signed Date: 06/07/2024 09:17 ET Workstation ID: [id number] Transcribed By: Self Edit Transcribed Date: 06/07/2024 09:02 ET us Raina Garcia CNM IMG US PROCEDURES Final Result * Chlamydia trachomatis and neisseria gonorrhoeae by tma, thinprep (06/05/2024 1:41 PM EST) N. gonorrhoeae, RNA Probe Negative Negative LAB MICROBIOLOGY METHOD 06/07/2024 1:53 PM EST [facility] Chlamydia, RNA Probe Negative Negative LAB MICROBIOLOGY METHOD 06/07/2024 1:53 PM EST [facility] Brushing/Spatula Cervix uteri structure / Unknown 06/05/2024 1:41 PM EST 06/07/2024 6:37 AM EST Raina Garcia CNM LAB CYTOLOGY ORDERABLES Final Result Performing Organization Address City/[facility]/ZIP Co de Phone Number [facility] [address] [place] [address], [place] [phone] * HPV with reflex genotype (06/05/2024 1:41 PM EST) Pathologist [facility] HPV Negative Negative LAB MICROBIOLOGY METHOD 06/07/2024 2:36 PM EST [facility] Brushing/Spatula Cervix uteri structure / Unknown 06/05/2024 1:41 PM EST 06/07/2024 6:37 AM EST Raina Garcia CNM LAB MOLECULAR DIAGNOSTICS ORDE RABLES Final Result [facility] [address] [place] [address], [place] [phone] * Trichomonas vaginalis antigen (06/05/2024 1:41 PM EST) Trichomonas vaginalis Negative Negative 06/05/2024 7:31 PM EST [facility] Swab Vaginal structure / Unknown Non-blood Collection / Unknown 06/05/2024 1:41 PM EST 06/05/2024 1:41 PM EST us Raina SHAFER LAB MICROBIOLOGY - GENERAL ORD ERABLES Final Result [facility] [address] [place] [address], [place] [phone] * Trichomonas vaginalis molecular study (06/05/2024 1:41 PM EST) Trichomonas vaginalis Negative Negative LAB MICROBIOLOGY METHOD 06/07/2024 2:07 PM EST [facility] Brushing/Spatula Cervix uteri structure / Unknown 06/05/2024 1:41 PM EST 06/07/2024 6:37 AM EST us Raina Garcia [facility] BLOOD ORDERABLES Final Res ult Performing Organization Address [facility]/ZIP Co de Phone Number [facility] [address] [place] [address], [place] [phone] * Wet prep, genital (06/05/2024 1:41 PM EST) Clue Cells, Wet Prep Negative Negative 06/05/2024 7:31 PM EST [facility] Yeast, Wet Prep Negative Negative 06/05/2024 7:31 PM EST [facility] Trichomonas, Wet Prep Indeterminate Negative 06/05/2024 7:31 PM EST [facility] Comment:Refer to Trichomonas antigen. Swab Vaginal structure / Unknown Non-blood Collection / Unknown 06/05/2024 1:41 PM EST 06/05/2024 1:41 PM EST us Raina SHAFER LAB MICROBIOLOGY - GENERAL ORD ERABLES Final Result [facility] [address] [place] [address], [place] [phone] * Pap smear (06/05/2024 1:41 PM EST) Interpretation Negative for intraepithelial lesion or malignancy 06/08/2024 2:00 PM EST [facility] General Categorization Negative 06/08/2024 2:00 PM EST [facility] LMP 06/02/2024 06/08/2024 2:[address] [facility] Specimen Adequacy Satisfactory for evaluation, endocervical/frank sformation zone component present 06/08/2024 2:[address] [facility] Pap Methodology Liquid Based Pap Test 06/08/2024 2:[address] [facility] Disclaimer The Pap test is a screening test which carries an inherent false negative rate. These test results should be correlated with the patient's clinical findings and history. This Pap test was processed using an automated screening system. Technical cytopathology services provided by [facility], at [address] [place] [id number] (CLIA # [id number]/Liam Dorantes MD, Staff Therapist.) 06/08/2024 2:[address] [facility] Console Pap Interpretation Reported 06/08/2024 2:[address] [facility] Brushing/Spatula Cervix uteri structure / Unknown 06/05/2024 1:41 PM EST 06/05/2024 1:41 PM EST Raina Garcia CNM LAB CYTOLOGY ORDERABLES Final Result [facility] [facility] [address] [place] [address], [place] [phone] * MR Lumbar Spine wo Contrast (05/30/2024 3:33 PM EST) Anatomical Region Laterality Modality L-spine, Spine Magnetic Resonan ce 05/30/2024 3:50 PM EST Impressions 05/30/2024 6:50 PM EST Multilevel degenerative changes. ??Progressive degenerative changes at L3-4. POS - [id number] -------- FINAL REPORT -------- Dictated By: Kalpana Byers Dictated Date: 05/30/2024 15:50 ET Assigned Physician: Kalpana Byers Reviewed and Electronically Signed By: Kalpana Byers Signed Date: 05/30/2024 18:50 ET Workstation ID: [id number] Transcribed By: Self Edit Transcribed Date: 05/30/2024 16:25 ET Narrative 05/30/2024 6:50 PM EST EXAM: Lumbar spine MRI HISTORY: ??Low back pain. COMPARISON: 04/01/2013 CORRELATION: ??Lumbar spine radiography 05/18/2024 TECHNIQUE: Exam performed on a 1.5 Laura high-field MRI scanner. ??Multiplanar imaging performed without contrast. FINDINGS: Conus medullaris terminates at L1 which is within normal limits. ??No abnormal cord signal detected. Vertebral body heights are maintained. ??No new focal suspicious bone lesion. L1-L2: Disc bulging again noted. ??No significant neural foraminal narrowing or spinal canal stenosis. L2-L3: Disc bulging again noted. ??No significant neural foraminal narrowing or spinal canal stenosis. L3-L4: Progressive disc desiccation, mild loss of disc height, and diffuse disc bulging. ??Progressive mild facet arthropathy. ??Moderate to severe bilateral neural foraminal narrowing again noted with stable possible compression on the left exiting nerve root. ??Bone and disc disease abut the right exiting nerve root without definite compression. ??Progressive mild to moderate narrowing of the spinal canal. L4-L5: Disc bulging and mild bilateral facet arthropathy again noted. ??Moderate bilateral subarticular neural foraminal narrowing as before. ??No significant spinal canal stenosis. L5-S1: Mild disc desiccation, disc bulging, and mild bilateral facet arthropathy again noted. ??Moderate bilateral neural foraminal narrowing as before. ??No significant spinal canal stenosis. Procedure Note Kalpana Byers MD - 05/30/2024 EXAM: Lumbar spine MRI HISTORY: Low back pain. COMPARISON: 04/01/2013 CORRELATION: Lumbar spine radiography 05/18/2024 TECHNIQUE: Exam performed on a 1.5 Laura high-field MRI scanner.Multiplanar imaging performed without contrast. FINDINGS: Conus medullaris terminates at L1 which is within normal limits. Noabnormal cord signal detected. Vertebral body heights are maintained. No new focal suspicious bonelesion. L1-L2: Disc bulging again noted. No significant neural foraminalnarrowing or spinal canal stenosis. L2-L3: Disc bulging again noted. No significant neural foraminalnarrowing or spinal canal stenosis. L3-L4: Progressive disc desiccation, mild loss of disc height, and diffusedisc bulging. Progressive mild facet arthropathy. Moderate to severebilateral neural foraminal narrowing again noted with stable possiblecompression on the left exiting nerve root. Bone and disc disease abutthe right exiting nerve root without definite compression. Progressivemild to moderate narrowing of the spinal canal. L4-L5: Disc bulging and mild bilateral facet arthropathy again noted.Moderate bilateral subarticular neural foraminal narrowing as before. Nosignificant spinal canal stenosis. L5-S1: Mild disc desiccation, disc bulging, and mild bilateral facetarthropathy again noted. Moderate bilateral neural foraminal narrowing asbefore. No significant spinal canal stenosis. IMPRESSION: Multilevel degenerative changes. Progressive degenerative changes atL3-4. POS - [id number] -------- FINAL REPORT -------- Dictated By: Kalpana Byers Dictated Date: 05/30/2024 15:50 ET Assigned Physician: Kalpana Byers Reviewed and Electronically Signed By: Kalpana Byers Signed Date: 05/30/2024 18:50 ET Workstation ID: [id number] Transcribed By: Self Edit Transcribed Date: 05/30/2024 16:25 ET us Radha Rico MD IMG MRI PROCEDUR ES Final Result * XR Thoracic Spine 2 Views (05/18/2024 3:42 PM EST) Anatomical Region Laterality Modality Spine, T-spine Radiographic Darlene ging 05/19/2024 12:3 1 AM EST Impressions 05/19/2024 12:35 AM EST Mild degenerative changes. POS - [id number] -------- FINAL REPORT -------- Dictated By: Kalpana Byers Dictated Date: 05/19/2024 00:31 ET Assigned Physician: Kalpana Byers Reviewed and Electronically Signed By: Kalpana Byers Signed Date: 05/19/2024 00:35 ET Workstation ID: [id number] Transcribed By: Self Edit Transcribed Date: 05/19/2024 00:31 ET Narrative 05/19/2024 12:35 AM EST EXAM: Thoracic spine x-ray HISTORY: Left thoracic back pain. COMPARISON: None, correlation with chest radiography 07/13/2023 FINDINGS: AP and lateral views performed. ??Exam interpreted in conjunction with lumbar spine radiography from the same day. Vertebral body heights appear maintained. ??Multilevel minimal to mild disc space narrowing and mild endplate spurring. ??Prominent bridging lateral endplate osteophytes on the right at T6-7 and T8-9. ??No subluxation. ??Pedicles are intact. Procedure Note Kalpana Byers MD - 05/19/2024 EXAM: Thoracic spine x-ray HISTORY: Left thoracic back pain. COMPARISON: None, correlation with chest radiography 07/13/2023 FINDINGS: AP and lateral views performed. Exam interpreted in conjunction withlumbar spine radiography from the same day. Vertebral body heights appear maintained. Multilevel minimal to mild discspace narrowing and mild endplate spurring. Prominent bridging lateralendplate osteophytes on the right at T6-7 and T8-9. No subluxation.Pedicles are intact. IMPRESSION: Mild degenerative changes. POS - [id number] -------- FINAL REPORT -------- Dictated By: Kalpana Byers Dictated Date: 05/19/2024 00:31 ET Assigned Physician: Kalpana Byers Reviewed and Electronically Signed By: Kalpana Byers Signed Date: 05/19/2024 00:35 ET Workstation ID: [id number] Transcribed By: Self Edit Transcribed Date: 05/19/2024 00:31 ET Radha Rico MD IMG XR PROCEDURE S Final Result * XR Lumbar Spine 4+ Views (05/18/2024 3:42 PM EST) Anatomical Region Laterality Modality Spine, L-spine Radiographic Darlene ging 05/19/2024 12:2 5 AM EST Impressions 05/19/2024 12:31 AM EST Mild degenerative changes. POS - [id number] -------- FINAL REPORT -------- Dictated By: Kalpana Byers Dictated Date: 05/19/2024 00:25 ET Assigned Physician: Kalpana Byers Reviewed and Electronically Signed By: Kalpana Byers Signed Date: 05/19/2024 00:31 ET Workstation ID: [id number] Transcribed By: Self Edit Transcribed Date: 05/19/2024 00:25 ET Narrative 05/19/2024 12:31 AM EST EXAM: Lumbar spine x-ray HISTORY: Low back pain. COMPARISON: 11/11/2023 FINDINGS: 5 views of the lumbar spine were performed. 5 lumbar type vertebral bodies. Vertebral body heights are maintained. ??Mild disc space narrowing at L3-4 with anterior endplate spurring. ??Minimal spurring at other levels. ??No evidence of spondylolysis or spondylolisthesis. ??Mild facet arthropathy at L5-S1. Procedure Note Kalpana Byers MD - 05/19/2024 EXAM: Lumbar spine x-ray HISTORY: Low back pain. COMPARISON: 11/11/2023 FINDINGS: 5 views of the lumbar spine were performed. 5 lumbar type vertebral bodies. Vertebral body heights are maintained.Mild disc space narrowing at L3-4 with anterior endplate spurring.Minimal spurring at other levels. No evidence of spondylolysis orspondylolisthesis. Mild facet arthropathy at L5- S1. IMPRESSION: Mild degenerative changes. POS - [id number] -------- FINAL REPORT -------- Dictated By: Kalpana Byers Dictated Date: 05/19/2024 00:25 ET Assigned Physician: Kalpana Byers Reviewed and Electronically Signed By: Kalpana Byers Signed Date: 05/19/2024 00:31 ET Workstation ID: [id number] Transcribed By: Self Edit Transcribed Date: 05/19/2024 00:25 ET Radha Rico MD IMG XR PROCEDURE S Final Result * General sleep study (05/08/2024) us Provider Points [facility] ORDERABLES Final Result * Microalbumin creatinine urine ratio (03/27/2024 9:30 AM EST) Creatinine, Urine 49.0 mg/dL LAB CHEMISTRY METHOD 03/27/2024 4:19 PM EST [facility] Microalb, Ur <5.0 0.0 - 29.0 mg/L LAB CHEMISTRY METHOD 03/27/2024 4:19 PM EST [facility] Microalb/Creat Ratio <10 <30 mg/g creat LAB CHEMISTRY METHOD 03/27/2024 4:19 PM EST [facility] Urine Urine specimen obtained by clean catch procedure / Unknown Non-blood Collection / Unknown 03/27/2024 9:30 AM EST 03/27/2024 9:39 AM EST L[facility] URINE ORDERABLES Final Re sult [facility] [address] [place] [address], [place] [phone] * Hemoglobin A1c (03/27/2024 9:30 AM EST) Hemoglobin A1C 5.2 <6.5 % LAB CHEMISTRY METHOD 03/27/2024 2:23 PM EST [facility] Mean Bld Glu Estim. 103 mg/dL LAB CHEMISTRY METHOD 03/27/2024 2:[address] [facility] Blood Venous blood specimen / Unknown Venipuncture / Unknown 03/27/2024 9:30 AM EST 03/27/2024 9:39 AM EST us Lulu [facility] LAB BLOOD ORDERABLES Final Re sult [facility] [address] [place] [address], * (ABNORMAL) Basic metabolic panel (03/27/2024 9:30 AM EST) Sodium 137 133 - 145 mmol/L LAB CHEMISTRY METHOD 03/27/2024 1:[address] [facility] Potassium 4.3 3.5 - 5.5 mmol/L LAB CHEMISTRY METHOD 03/27/2024 1:[address] [facility] Chloride 106 96 - 110 mmol/L LAB CHEMISTRY METHOD 03/27/2024 1:[address] [facility] CO2 24 21 - 32 mmol/L LAB CHEMISTRY METHOD 03/27/2024 1:[address] [facility] Anion Gap 7 3 - 11 LAB CHEMISTRY METHOD 03/27/2024 1:[address] [facility] Glucose 102(H) 70 - 100 mg/dL LAB CHEMISTRY METHOD 03/27/2024 1:[address] [facility] BUN 13 5 - 25 mg/dL LAB CHEMISTRY METHOD 03/27/2024 1:[address] [facility] Creatinine 0.83 0.50 - 1.10 mg/dL LAB CHEMISTRY METHOD 03/27/2024 1:[address] [facility] eGFR 88 >=60 mL/min/1. 73m2 LAB CHEMISTRY METHOD 03/27/2024 1:[address] [facility] Comment:Calculation based on the??Chronic Kidney Disease Epidemiology Collaboration (CKD-EPI) equation refit??without adjustment for race. BUN/Creatinine Ratio 15.7 LAB CHEMISTRY METHOD 03/27/2024 1:30 PM EST [facility] Calcium 9.6 8.5 - 10.5 mg/dL LAB CHEMISTRY METHOD 03/27/2024 1:30 PM EST [facility] Blood Venous blood specimen / Unknown Venipuncture / Unknown 03/27/2024 9:30 AM EST 03/27/2024 9:39 AM EST Result [facility] Lulu RUFF LAB BLOOD ORDERABLES Final Re sult [facility] ([facility]) [facility] [address] [place] [address], * Hepatitis C Screening (01/18/2024) [facility] Hepatitis C Screening abstracted Result [facility] Provider HEALTH MAINTENANCE Final Result * (ABNORMAL) Lipid panel (01/18/2024) [facility] LDL/HDL Ratio 4 0 - 4 Triglycerides 111 0 - 150 mg/dL Cholesterol 247(A) 0 - 200 mg/dL HDL 64 >=40 mg/dL LDL Cholesterol 161(A) 0 - 100 mg/dL Blood Venous blood specimen / Unknown Result [facility] Provider LAB BLOOD ORDERABLES Gloria l Result * Diabetes Eye Exam (11/10/2023) [facility] Diabetes: Annual Retina Eye Exam abstracted Result [facility] Provider HEALTH MAINTENANCE Final Result * Depression Screening (10/22/2023) [facility] Depression Screening abstracted Result [facility] Provider HEALTH MAINTENANCE Final Result * DIAGNOSTIC MAMMOGRAPHY WITH CAD UNILATERAL (08/23/2023 2:44 PM EDT) Anatomical Region Laterality Modality Mammography 07/28/2023 8:00 AM EDT Narrative 08/23/2023 2:59 PM EDT This is a summary report. The complete report is available in the patient's medical record. If you cannot access the medical record, please contact the sending organization for a detailed fax or copy. LEFT DIGITAL 3D DIAGNOSTIC MAMMOGRAM HISTORY: Workup for cc view slightly lateral to the nipple anterior depth asymmetry which likely corresponds to MLO above the nipple anterior depth asymmetry TECHNIQUE: CC spot compression, full-field ML 3D CAD was used COMPARISON: Screening mammogram from 07/26/2023 FINDINGS: Left breast upper outer focal asymmetry decreases in density on spot compression and is consistent with benign summation of fibroglandular tissue. ??Sonographic evaluation demonstrates no focal abnormality Density:B LEFT BREAST TARGETED ULTRASOUND EVALUATION HISTORY: Workup for cc view slightly lateral to the nipple anterior depth asymmetry which likely corresponds to MLO above the nipple anterior depth asymmetry TECHNIQUE: Ultrasonographic examination is performed using a linear array transducer. ??Targeted left breast ultrasound was performed from 12:00 to 3:00 to evaluate mammographic finding. ??Real-time sonographic scanning was also performed by the radiologist. FINDINGS: From 12:00 to 3:00, no sonographic evidence of malignancy or other focal abnormalities were identified at the left breast in the area of mammographic concern. Impression: No sonographic or mammographic evidence of malignancy BI-RADS Category 2 benign findings Recommendation: Routine annual screening mammography is recommended Procedure Note Lesvia Gonzales MD - 12/13/2023 This is a summary report. The complete report is available in thepatient's medical record. If you cannot access the medical record, pleasecontact the sending organization for a detailed fax or copy. LEFT DIGITAL 3D DIAGNOSTIC MAMMOGRAM HISTORY: Workup for cc view slightly lateral to the nipple anterior depthasymmetry which likely corresponds to MLO above the nipple anterior depthasymmetry TECHNIQUE: CC spot compression, full-field ML 3D CAD was used COMPARISON: Screening mammogram from 07/26/2023 FINDINGS: Left breast upper outer focal asymmetry decreases in density on spotcompression and is consistent with benign summation of fibroglandulartissue. Sonographic evaluation demonstrates no focal abnormality Density:B LEFT BREAST TARGETED ULTRASOUND EVALUATION HISTORY: Workup for cc view slightly lateral to the nipple anterior depthasymmetry which likely corresponds to MLO above the nipple anterior depthasymmetry TECHNIQUE: Ultrasonographic examination is performed using a linear arraytransducer. Targeted left breast ultrasound was performed from 12:00 to3:00 to evaluate mammographic finding. Real-time sonographic scanning wasalso performed by the radiologist. FINDINGS: From 12:00 to 3:00, no sonographic evidence of malignancy or other focalabnormalities were identified at the left breast in the area ofmammographic concern. Impression: No sonographic or mammographic evidence of malignancy BI-RADS Category 2 benign findings Recommendation: Routine annual screening mammography is recommended Radha Rico MD IMG BI PROCEDURE S Final Result * HIV Screening (02/05/2017) [facility] HIV Screening abstracted Historical Provider HEALTH MAINTENANCE Final Result from Last 3 Months or Most Recently Relevant to Health Maintenance Insurance MEDICAID - [place] MEDICARE Care Teams Relations Director Relationship Specialty Start Date End Date Radha Rico, MD [address] [place], [place] [phone] PCP - General Internal Medicine 11/12/21
--- OUTSIDE RECORDS SUMMARY | 2024-07-07 15:02 | XMS_ITS | Encounter Summary ---
Author Organization [facility] [place] [address] Care Team Providers Care Senior Systems Engineer Name Role Phone Radha Rico MD Primary Care Pr ovider Reason for Visit * Imaging (Routine) - Closed Specialty Diagnoses / Procedures Referred By Contac t Referred To Contact Radiology Diagnoses Pelvic pain Procedures US Pelvis Non OB Complete w Transvaginal US Pelvis Non OB Complete Raina Garcia, [address] Phone: tel: fax: [address] Phone: tel: Referral ID Status Reason Start Date Expiration Date Visits Re quested Visits Authorized [id number] Closed 06/05/2024 06/05/2025 1 1 Encounter Details Date Type Department Care Team (Latest Contact Info) Description 06/06/2024 5:21 PM EST - 06/06/2024 11:59 PM EST Hospital Encounter Radiology Department - [address] [phone] Pelvic pain Discharge Disposition: Home or Self Care Social History Tobacco Use Types Packs/Day Years Used Date Smoking Tobacco: Former Cigarettes 2.5 5.5 1 - 08/29/2003 Smokeless Tobacco: Never Alcohol Use Standard Drinks/Week Comments No 0 (1 standard drink = 0.6 oz pur e alcohol) Comments No Sex and Gender Information Value Date Recorded Sex Assigned at Not on file Legal Sex Female 5:31 AM EST Gender Identity Not on file Sexual Orientation Not on file documented as of this encounter Medications at Time of Discharge albuterol HFA (PROAIR HFA ; PROVENTIL HFA ; VENTOLIN HFA) 90 mcg/actuation inhaler Inhale 2 Puffs into the lungs every 4 hours as needed for Cough or Wheezing. 07/13/2023 atorvastatin (LIPITOR) 80 mg tabletIndications: Hyperlipidemia LDL goal <70 TAKE 1 TABLET BY MOUTH DAILY. 90 tablet 1 06/01/2024 cyclobenzaprine (FLEXERIL) 10 mg tabletIndications: Spinal stenosis of lumbar region with neurogenic claudication Take 1 tablet (10 mg total) by mouth at bedtime as needed for muscle spasms (nighly prn). 60 tablet 05/18/2024 hydroxychloroquine (PLAQUENIL) 200 mg tablet Take 1 tablet (200 mg total) by mouth 2 (two) times a day. 06/21/2023 hydrOXYzine HCL (ATARAX) 50 mg tablet Take 1 Tablet by mouth. omeprazole (PriLOSEC) [address] capsuleIndications :Gastroesophageal reflux disease without esophagitis Take 1 capsule (40 mg total) by mouth 1 (one) time each day. 90 capsule 1 05/18/2024 pramipexole (MIRAPEX) 0.125 mg tablet TAKE 1 TABLET BY MOUTH 3 TIMES DAILY. 270 tablet 1 05/09/2024 pregabalin (LYRICA) 50 mg capsule TAKE 2 CAPSULES BY MOUTH AT BEDTIME. 06/21/2023 semaglutide (Ozempic) 2 mg/dose (8 mg/3 mL) injection penIndications:Cla ss 2 severe obesity due to excess calories with serious comorbidity and body mass index (BMI) of 35.0 to 35.9 in adult ([facility]) Inject 2 mg under the skin every 7 (seven) days. 9 mL 1 05/18/2024 sertraline (ZOLOFT) 100 mg tablet Take 2 tablets (200 mg total) by mouth 1 (one) time each day. topiramate (TOPAMAX) 100 mg tablet TAKE 1 TABLET BY MOUTH AT BEDTIME 90 tablet 1 05/09/2024 topiramate (TOPAMAX) 50 mg tablet TAKE 1 TABLET BY MOUTH EVERY MORNING 90 tablet 1 05/09/2024 oxyCODONE-acetamin ophen (PERCOCET) 5-325 mg per tablet Take 1 tablet by mouth every 8 (eight) hours if needed for severe pain for up to 28 days. Max Daily Amount: 3 tablets 84 tablet 05/19/2024 documented as of this encounter Discharge Disposition Disposition Code Departure Means Destination Home or Self Care documented in this encounter Plan of Treatment Upcoming Encounters Date Type Department Care Team (Late st Contact Info) Description 08/02/2024 9:30 AM EDT Clinical Support Adult Medicine [address] [phone] 08/03/2024 1:00 PM EDT Appointment Radiology Department [address] [phone] 08/16/2024 2:30 PM EDT Office Visit Adult Medicine [address] [phone] Lulu Aiken PA [address] [place] [address] 09/21/2024 8:00 AM EDT Appointment [facility] Endoscopy [address] [place] [id number] Pallavi Vela MD [address] [address] documented as of this encounter Procedures Procedure Name Priority Date/Time Associated Diagnosis Comments US PELVIS NON OB COMPLETE W TRANSVAGINAL Routine 06/06/2024 6:03 PM EST Pelvic pain documented in this encounter Results * US Pelvis Non OB Complete [...] Signed Date: 06/07/2024 09:17 ET Workstation ID: [id number] Transcribed By: Self Edit Transcribed Date: 06/07/2024 [...] Signed Date: 06/07/2024 09:17 ET Workstation ID: [id number] Transcribed By: Self Edit Transcribed Date: 06/07/2024 09:02 ET us Raina SHAFER IM US PROCEDURES Final Result documented in this encounter Visit Diagnoses Diagnosis Pelvic pain Encounter for screening mammogram for breast cancer documented in this encounter Care Teams Senior Systems Engineer Relationship Specialty Start Date End Date Radha Rico MD [address] [place], [place] PCP - General Internal Medicine 11/12/21 documented as of this encounter
== END 2024-07-07 14:23 | disposition home or self-care (01) ==
LOC: HO.RHE 13:27
PROVIDERS: PCP Family Medicine; Visit Provider Student in an Organized Health Care Education/Training Program
DX: M32.9 Systemic lupus erythematosus, unspecified (principal); M79.7 Fibromyalgia; Z51.81 Encounter for therapeutic drug level monitoring; Z79.899 Other long term (current) drug therapy
CPT/HCPCS: 99214; G2211

== ENCOUNTER 2024-11-24 14:19 | Outpatient (AMB) | payer MEDICARE, MEDICAID, SELFPAY ==
--- OUTSIDE RECORDS SUMMARY | 2024-11-24 14:21 | XMS_ITS | Clinical Summary ---
Author Organization [facility] Address [address] [place] [address] Care Team Providers Care Wall Scraper Name Role Phone Artis Quevedo MD Primary Care Provider [phone] Allergies Active Allergy Reactions Criticality Noted Date [...] 88 07/02/2020 9:38 AM EST Temperature 36.2 C (97.1 F) 07/02/2020 9:38 AM EST Respiratory Rate - - Oxygen Saturation 100% [...] Cancer Screening (Colonoscopy) 2023 Influenza Vaccine (#1) 2024 9, 02/22/2018, 02/04/2017, Additional history exists RSV Ped < 20 months Aged Out No longe r eligible based on patient's age to complete this topic Care Teams Wall Scraper Relationship Specialty Start Date End Date Artis Quevedo MD PCP - General Internal Medicine 03/12/20
--- OUTSIDE RECORDS SUMMARY | 2024-11-24 14:21 | XMS_ITS | Clinical Summary ---
Author Organization [facility] [address] [facility] Address [address] [place] [phone] Phone Care Team Providers Care Stockbroker Name Role Phone Radha Rico MD Primary Care Pr ovider Allergies Active Allergy Reactions Criticality Noted Date Comments Morphine Sulfate Other 10/14/2011 palpatations Medications sertraline (ZOLOFT) 100 mg tablet Take 2 tablets (200 mg total) by mouth 1 (one) time each day. Active hydrOXYzine HCL (ATARAX) 50 mg tablet Take 1 Tablet by mouth. Active pregabalin (LYRICA) 50 mg capsule TAKE 2 CAPSULES BY MOUTH AT BEDTIME. 06/21/19 24 Active hydroxychloroqui ne (PLAQUENIL) 200 mg tablet Take 1 tablet (200 mg total) by mouth 2 (two) times a day. 06/21/19 24 Active cyclobenzaprine (FLEXERIL) 10 mg tabletIndication s:Spinal stenosis of lumbar region with neurogenic claudication Take 1 tablet (10 mg total) by mouth at bedtime as needed for muscle spasms (nighly prn). 60 tablet 05/18/19 25 Active busPIRone (BUSPAR) 10 mg tablet 08/10/19 25 Active doxepin (SINEquan) 25 mg capsule Take 2 capsules (50 mg total) by mouth. Active naloxone (NARCAN) 4 mg/0.1 mL nasal spray 04/21/20 24 Active clotrimazole-bet amethasone (LOTRISONE) 1-0.05 % cream 09/27/19 24 Active oxyCODONE-acetam inophen (PERCOCET) 5-325 mg per tablet Take 1 tablet by mouth every 6 (six) hours if needed for severe pain for up to 28 days. Max Daily Amount: 4 tablets 112 tablet 11/04/19 25 025 Active topiramate (TOPAMAX) 50 mg tabletIndication s:Migraine without aura and without status migrainosus, not intractable Take 1 tablet (50 mg total) by mouth 1 (one) time each day in the morning. 90 tablet 1 11/16/19 25 Active topiramate (TOPAMAX) 100 mg tabletIndication s:Migraine without aura and without status migrainosus, not intractable TAKE 1 TABLET BY MOUTH AT BEDTIME 90 tablet 11/16/19 25 Active semaglutide (Ozempic) 2 mg/dose (8 mg/3 mL) injection penIndications:T ype 2 diabetes mellitus with neurological manifestations, controlled (CMS/HCC V24, CMS/HCC V28),Class 1 obesity due to excess calories with serious comorbidity and body mass index (BMI) of 34.0 to 34.9 in adult Inject 2 mg under the skin every 7 (seven) days. 9 mL 11/16/19 026 Active pramipexole (MIRAPEX) 0.125 mg tabletIndication s:Restless leg syndrome Take 1 tablet (0.125 mg total) by mouth 3 (three) times a day. 270 each 11/16/19 026 Active albuterol HFA (PROAIR HFA ; PROVENTIL HFA ; VENTOLIN HFA) 90 mcg/actuation inhalerIndicatio ns:Mild intermittent asthma without complication Inhale 1 puff by mouth every 6 (six) hours if needed for wheezing. 6.7 g 11/16/19 026 Active omeprazole (PriLOSEC) [address] capsuleIndicatio ns:Gastroesophag eal reflux disease without esophagitis Take 1 capsule (40 mg total) by mouth 1 (one) time each day. 90 capsule 11/16/19 25 Active atorvastatin (LIPITOR) 80 mg tabletIndication s:Hyperlipidemia LDL goal <70 Take 1 tablet (80 mg total) by mouth 1 (one) time each day. 90 tablet 1 11/16/19 25 Active albuterol HFA (PROAIR HFA ; PROVENTIL HFA ; VENTOLIN HFA) 90 mcg/actuation inhaler Inhale 2 Puffs into the lungs every 4 hours as needed for Cough or Wheezing. 07/13/19 24 Discontinu ed(Reorder ) topiramate (TOPAMAX) 50 mg tablet TAKE 1 TABLET BY MOUTH EVERY MORNING 90 tablet 1 05/09/19 25 025 Discontinu ed(Reorder ) pramipexole (MIRAPEX) 0.125 mg tablet TAKE 1 TABLET BY MOUTH 3 TIMES DAILY. 270 tablet 1 05/09/19 Discontinu ed(Reorder ) topiramate (TOPAMAX) 100 mg tablet TAKE 1 TABLET BY MOUTH AT BEDTIME 90 tablet 1 05/09/19 Discontinu ed(Reorder ) omeprazole (PriLOSEC) [address] capsuleIndicatio ns:Gastroesophag eal reflux disease without esophagitis Take 1 capsule (40 mg total) by mouth 1 (one) time each day. 90 capsule 1 05/18/19 025 Discontinu ed(Reorder ) atorvastatin (LIPITOR) 80 mg tabletIndication s:Hyperlipidemia LDL goal <70 TAKE 1 TABLET BY MOUTH DAILY. 90 tablet 1 06/01/19 Discontinu ed(Reorder ) semaglutide (Ozempic) 2 mg/dose (8 mg/3 mL) injection penIndications:C lass 2 severe obesity due to excess calories with serious comorbidity and body mass index (BMI) of 35.0 to 35.9 in adult (CMS/[facility] V24, [facility] V28) Inject 2 mg under the skin every 7 (seven) days. 9 mL 1 07/19/19 025 Discontinu ed(Reorder ) polyethylene glycol (Golytely) 236-22.74-6.74 -5.86 gram solution Take 4L by mouth once for one dose. May substitue any PEG. Starting at 6PM the night before your procedure drink 1 8oz glasses at your own pace until you complete half of the gallon. Finish 2nd half of the gallon 5 hours before your procedure. 4000 mL 09/08/19 25 025 Discontinu ed(Therapy completed) bisacodyL (DULCOLAX) 5 mg EC tablet Take 2 tablets by mouth right before beginning bowel prep. See instructions provided by the office 2 tablet 09/08/19 25 025 Discontinu ed(Therapy completed) oxyCODONE-acetam inophen (PERCOCET) 5-325 mg per tablet Take 1 tablet by mouth every 6 (six) hours if needed for severe pain for up to 28 days. Max Daily Amount: 4 tablets 112 tablet 10/07/19 25 025 Discontinu ed(Reorder ) ofloxacin (FLOXIN) 0.3 % otic solution Administer 5 drops into the left ear 2 (two) times a day for 10 days. 5 mL 11/02/19 25 025 Discontinu ed(Dose adjustment ) amoxicillin-clav ulanate (AUGMENTIN) 875-125 mg per tablet Take 1 tablet by mouth 2 (two) times a day for 10 days. 20 each 11/02/19 25 025 ofloxacin (FLOXIN) 0.3 % otic solution Administer 5 drops into the left ear 1 (one) time each day for 10 days. 5 mL 11/02/19 25 025 Active Problems Problem Noted Date Diagnosed Date Gastroesophageal reflux disease without esophagi tis 11/15/2024 Assessment & Plan (11/15/2024 2:22 PM EDT): Stable. Continue omeprazole Orders: omeprazole (PriLOSEC) [address] capsule; Take 1 capsule (40 mg total) by mouth 1 (one) time each day. DJD (degenerative joint disease), thoracolumbar 05/19/2024 Class 1 obesity with serious comorbidity and body mass index (BMI) of 34.0 to 34.9 in adult 02/09/2024 Assessment & Plan (11/15/2024 2:22 PM EDT): Continue Ozempic weekly. Orders: semaglutide (Ozempic) 2 mg/dose (8 mg/3 mL) injection pen; Inject 2 mg under the skin every 7 (seven) days. Assessment & Plan (05/18/2024 4:57 PM EST): Increase Ozempic to 2 mg weekly. So far she has lost a total of about 18 pounds on the Ozempic Orders: semaglutide (Ozempic) 2 mg/dose (8 mg/3 mL) injection pen; Inject 2 mg under the skin every 7 (seven) days. Hyperlipidemia LDL goal <70 10/30/2022 Assessment & Plan (11/15/2024 2:22 PM EDT): LDL is close to goal. Continue atorvastatin Orders: Comprehensive metabolic panel; Future atorvastatin (LIPITOR) 80 mg tablet; Take 1 tablet (80 mg total) by mouth 1 (one) time each day. Assessment & Plan (05/18/2024 4:57 PM EST): [...] LDL; Future Migraine 01/23/2022 Assessment & Plan (11/15/2024 2:22 PM EDT): Stable. Continue topiramate Orders: topiramate (TOPAMAX) 50 mg tablet; Take 1 tablet (50 mg total) by mouth 1 (one) time each day in the morning. topiramate (TOPAMAX) 100 mg tablet; TAKE 1 TABLET BY MOUTH AT BEDTIME Assessment & Plan (05/18/2024 4:57 PM EST): Stable. Continue topiramate 50mg QAM and 100mg nightly Restless leg syndrome 01/23/2022 Assessment & Plan (11/15/2024 2:22 PM EDT): Stable. Continue pramipexole Orders: pramipexole (MIRAPEX) 0.125 mg tablet; Take 1 tablet (0.125 mg total) by mouth 3 (three) times a day. Assessment & Plan (05/18/2024 4:57 PM EST): Stable. Continue pramipexole 0.125 mg 3 times daily Diabetic gastroparesis ([facility] V24, [facility] V28 ) 10/24/2018 Fibromyalgia 06/29/2018 Assessment & Plan (11/15/2024 2:22 PM EDT): Continue pregabalin nightly which is prescribed through rheumatology Assessment & Plan (05/18/2024 4:57 PM EST): Continue pregabalin nightly Type 2 diabetes mellitus wit h neurological manifestations, controlled ([facility] V24, [facility] V28) 06/04/2018 Overview (02/09/2024): Carpal tunnel syndrome Assessment & Plan (11/15/2024 2:22 PM EDT): Diabetes is well-controlled. Continue ozempic weekly Orders: semaglutide (Ozempic) 2 mg/dose (8 mg/3 mL) injection pen; Inject 2 mg under the skin every 7 (seven) days. Hemoglobin A1c; Future Assessment & Plan (05/18/2024 4:57 PM EST): Diabetes is well controlled. Will increase Ozempic to 2 mg weekly for obesity/weight loss benefit. Orders: Comprehensive metabolic panel; Future Hemoglobin A1c; Future Systemic lupus erythematosus ([facility] V24, [facility]/ [facility] V28) 09/14/2017 Overview (02/09/2024): Pos CHIKIS, athralgias, facial rash Hydroxychloroquine started 08/11 Eyes checked 08/2020 azathioprine added 12/11 Assessment & Plan (11/15/2024 2:22 PM EDT): Stable. Continue hydroxychloroquine and rheum follow-up Assessment & Plan (05/18/2024 4:57 PM EST): Continue follow-up with rheumatology. Continue hydroxychloroquine CTS (carpal tunnel syndrome) 07/21/2017 Overview (02/09/2024): Bilateral left worse per EMG Elevated liver enzymes 11/13/2011 PINA (obstructive sleep apnea) 10/14/2011 Overview (05/26/2024): Following with sleep medicine [facility] Assessment & Plan (05/18/2024 4:57 PM EST): Continue follow-up with sleep medicine [facility]. See HPI Steatosis of liver 10/14/2011 Overview (02/09/2024): Outside lab 07/2011: AST 94, ALT: 136 IMO update H. pylori infection 10/14/2011 Asthma 10/14/2011 Assessment & Plan (11/15/2024 2:22 PM EDT): Stable. Continue albuterol as needed Orders: albuterol HFA (PROAIR HFA ; PROVENTIL HFA ; VENTOLIN HFA) 90 mcg/actuation inhaler; Inhale 1 puff by mouth every 6 (six) hours if needed for wheezing. Depression 10/14/2011 Overview (02/09/2024): Boogie Mcmillan Assessment & Plan (11/15/2024 2:22 PM EDT): Continue follow-up in our clinic. Continue sertraline 200 mg daily Assessment & Plan (05/18/2024 4:57 PM EST): Continue follow-up with INR clinic. Continue sertraline 200 mg daily Spinal stenosis of lumbar region 10/14/2011 Assessment & Plan (11/15/2024 2:22 PM EDT): Continue on CSC for percocet 5-325mg Q6H PRN Up to date with UDS Assessment & Plan (05/18/2024 4:57 PM EST): [...] Encounters Date Type Department Care Team Description 11/15/2024 2:30 PM EDT Office Visit Adult Medicine [address] [phone] Radha Rico MD Type 2 diabetes mellitus with neurological manifestations, controlled (CMS/HCC V24, CMS/[facility] V28) (Primary Dx); Class 1 obesity due to excess calories with serious comorbidity and body mass index (BMI) of 34.0 to 34.9 in adult; Hyperlipidemia LDL goal <70; Fibromyalgia; Spinal stenosis of lumbar region with neurogenic claudication; Migraine without aura and without status migrainosus, not intractable; Persistent depressive disorder; Gastroesophageal reflux disease without esophagitis; Restless leg syndrome; Systemic lupus erythematosus, unspecified SLE type, unspecified organ involvement status (CMS/HCC V24, CMS/HCC V28); Mild intermittent asthma without complication; Chronic left ear pain; Tinnitus of left ear; Tympanic membrane disorder, left 11/01/2024 10:00 AM EDT Office Visit Adult Medicine [address] [phone] Mili Skaggs PA Other infective acute otitis externa of left ear (Primary Dx); Recurrent acute suppurative otitis media without spontaneous rupture of left tympanic membrane; Type 2 diabetes mellitus with neurological manifestations, controlled ([facility] V24, [facility] V28) 10/31/2024 Nurse Triage Adult Medicine [address] [phone] Analy Tomas RN 10/06/2024 3:00 PM EDT Office Visit Orthopedic Surgery - [place] [address] [facility] [address] [place] [phone] Joelle Gutierrez PA [facility] arthritis (Primary Dx) 09/21/2024 7:57 AM EDT Anesthesia Event [facility] [address] [place] [phone] Alan Gordon MD 09/21/2024 7:05 AM EDT - 09/21/2024 11:59 PM EDT Hospital Encounter [facility] [address] [place] [phone] Pallavi Vela MD Gomes, Sheldon B, MD Steele, Matthew G, CRNA Colon cancer screening Discharge Disposition: Home or Self Care from Last 3 Months Immunizations Name Administration Dates Next Due HepB-CpG (Heplisav-B) 18yo and older 03/01/2024 Hepatitis B (Dlhnksc-U-Oczdp , Recombivax HB-Adult) 19yo and older 08/02/2024,02/02/2024 Influenza Quadravalent, MDCK , 0.5ml, preservative free [...] Comments SECTION PROCEDURE: HISTORICAL ; COMMENT: x1 CARPAL TUNNEL RELEASE Left Medical History Medical History Date Comments Type II or unspecified type diabetes mellitus with unspecified complication, not stated as uncontrolled DX:Type II or unspecified ty pe diabetes mellitus with unspecified complication, not stated as uncontrolled GERD (gastroesophageal reflux disease) 11/06/2016 DX:GERD (gastroesophageal reflux disease) GERD (gastroesophageal reflux disease) 11/06/2016 DX:GERD (gastroesophageal reflux disease) Asthma DX:Asthma Rosacea DX:Rosacea Shingles DX:Shingles Diabetic gastroparesis ([facility] V24, [facility] V28) 10/24/2018 DX:Diabetic gastroparesis ([facility]) Covid-19 05/25/2020 DX:COVID-19 Anxiety and depression Family [...] drink = 0.6 oz pur e alcohol) Housing Instability Answer Date Recorde d Are you worried that in the next 2 months you may not have stable housing? No 11/01/2024 Food Access & Nutrition Answer Date Rec orded Do you have access to a vari ety of food including fruits and vegetables? Yes 11/01/2024 Access to Healthcare Answer Date Record ed Within the last 3 months, ho w many times did you visit the emergency department for your medical care? 0 11/01/2024 Health Literacy Answer Date Recorded How often do you need to hav e someone help you when you read instructions, pamphlets, or other written material from your doctor or pharmacy? Never 11/01/2024 Caregiver: How often do you need to have someone help you when you read instructions, pamphlets, or other written material from your doctor or pharmacy? Not on file 11/01/2024 Financial Risk Answer Date Recorded How hard is it for you to pa y for the very basics like food, housing, medical care, and air conditioning / heating? Not very hard 11/01/2024 Transportation Answer Date Recorded Has the lack of transportati on kept you from meetings, work, or from getting things needed for daily living? No Has the lack of transportati on kept you from medical appointments or from getting medications? No 11/01/2024 Social Isolation Answer Date Recorded How often do you feel lonely or isolated from th ose around you? Never 11/01/2024 Food Risk Answer Date Recorded Within the past 12 months we worried whether our food would run out before we got money to buy more. Never true 11/01/2024 Within the past 12 months th e food we bought just didn't last and we didn't have money to get more. Never true 11/01/2024 Dependent Care Answer Date Recorded Do you need help finding or paying for care for your loved ones. For example, child day care center worker or elderly care for an older adult? No 11/01/2024 Education Answer Date Recorded Do you think completing more education or training, like finishing a GED, going to college, or learning a trade, would be helpful for you? No 11/01/2024 Employment and Income Answer Date Recor ded During the last four weeks, have you been actively looking for work? No 11/01/2024 Living Situation Answer Date Recorded What is your living situation? 0 11/01/2024 Interpersonal Safety Answer Date Record ed Physical Abuse 09/21/2024 Verbal Abuse 09/21/2024 Comments No Sex and Gender Information Value Date Recorded Sex Assigned at Not on file Legal Sex Female 5:31 AM EST Gender Identity Not on file Sexual Orientation Not on file Obstetrics History Para Term AB IAB SAB Ectopic Multiple Livin g Live Births 1 1 1 1 1 Date Outcome GA Total Labor Labor/2nd/3rd Weight Sex Type Anes PTL Brittany A1 A5 Name Clin Term Living Last Filed Vital Signs Vital Sign Reading Time Taken Comments Blood Pressure 102/64 11/15/2024 1:41 PM EDT Pulse 88 11/15/2024 1:41 PM EDT Temperature 36.5 C (97.7 F) 11/15/2024 1:41 PM EDT Respiratory Rate 15 11/01/2024 9:14 AM EDT Oxygen Saturation 97% 11/15/2024 1:41 PM EDT Inhaled Oxygen Concentration - - Weight 84.7 kg (186 lb 12.8 oz) 11/15/2024 1:41 PM EDT Height 157.5 cm (5' 2.01 ) 11/15/2024 1:41 PM ED T Body Mass Index 34.16 11/15/2024 1:41 PM EDT Plan of Treatment Upcoming Encounters Date Type Department Care Team (Late st Contact Info) Description 02/26/2025 12:30 PM EST Office Visit Adult Medicine [address] [phone] Radha Rico MD [address] [place] [address] 08/07/2025 2:20 PM EDT Appointment Radiology Department - [address] [phone] Health Maintenance Due Date Last Done Comments Pneumococcal Vaccine: Pediatrics (0 to 5 Years) and At-Risk Patients (6 to 49 Years) (2 of 2 - PCV) 07/11/2014 07/11/2013 Medicare Annual Wellness Visit 04/04/2022 Diabetes: Annual Retina Eye Exam 11/09/2024 11/10/2023 Influenza Vaccine (#1) 2024 , 02/05/2023, 01/23/2022, Additional history exists Diabetes: Annual Urine Albumin-Creatinine Ratio (uACR) 03/27/2025 03/27/2024, 05/18/2023 Diabetes: Blood Sugar Control Test (HGBA1C) 05/18/2025 11/15/2024, 08/02/2024, 03/27/2024, Additional history exists Diabetes: Annual Foot Exam 08/16/2025 08/16/2024 Social Influencers of Health Screening 11/01/2025 11/01/2024 Diabetes: Annual GFR (Glomerular Filtration Rate) 11/15/2025 11/15/2024, 08/02/2024, 03/27/2024, Additional history exists Breast Cancer Screening 08/03/2026 08/04/19, 08/23/2023, 08/23/2023, Additional history exists Cervical Cancer Screening: HPV 06/05/2029 06/05/2024, 07/10/2016 Cholesterol Screening (Lipid Panel) 08/02/2029 08/02/2024, 01/18/2024, 01/18/2024, Additional history exists DTaP,Tdap,and Td Vaccines (3 - Td or Tdap) 07/28/2032 07/28/2022, 05/17/2012 Colorectal Cancer Screening: Colonoscopy 09/21/2034 09/21/2024 HIV Screening Completed 02/05/2017 COVID-19 Vaccine Discontinued 03/14/2021, , 08/02/2020, Additional history exists Hepatitis C Screening Completed 01/18/2024 Hepatitis B Vaccines Completed 08/02/2024, 03/01/2024, 02/02/2024 Depression Screening Completed 11/01/2024, 10/22/19 HIB Vaccines Aged Out No longer eligi [...] age to complete this topic Meningococcal B Vaccine Aged Out No l onger eligible based on patient's age to complete this topic RSV Immunization Patients Under 20 months Aged Out No longer eligible based on patient's age to complete this topic Varicella Vaccines Aged Out No longer eligible based on patient's age to complete this topic Procedures Procedure Name Priority Date/Time Associated Diagnosis Comments COMPREHENSIVE METABOLIC PANEL Routine 11/15/2024 2:26 PM EDT Hyperlipidemia LDL goal <70 HEMOGLOBIN A1C Routine 11/15/2024 2:26 PM EDT Type 2 diabetes mellitus with neurological manifestations, controlled (CMS/HCC V24, CMS/HCC V28) IN ARTHROCENTESIS/ASPIRA TION/INJECTION SMALL JOINT/BURSA WO U/S GUIDANCE Routine 10/06/2024 3:00 PM EDT [facility] arthritis COLONOSCOPY Routine 09/21/2024 8:12 AM EDT Colon cancer screening MG MAMMO DIGITAL SCREENING W MEHRAN BILAT Routine 08/03/2024 1:08 PM EDT Encounter for screening mammogram for breast cancer LIPID PANEL WITH REFLEX TO DIRECT LDL Routine 08/02/2024 9:39 AM EDT Hyperlipidemia LDL goal <70 HPV WITH REFLEX GENOTYPE Routine 06/05/2024 1:41 PM EST Encounter for gynecological examination without abnormal finding MICROALBUMIN CREATININE URINE RATIO Routine 03/27/2024 9:30 AM EST Diabetic gastroparesis (CMS/HCC V24, CMS/HCC V28) Type 2 diabetes mellitus with neurological manifestations, controlled (CMS/HCC V24, CMS/HCC V28) Fibromyalgia Hyperlipidemia LDL goal <70 Elevated liver enzymes Systemic lupus erythematosus (CMS/HCC V24, CMS/HCC V28) HEPATITIS C SCREENING Routine 01/18/2024 DIABETES EYE EXAM Routine 11/10/2023 DEPRESSION SCREENING Routine 10/22/2023 HIV SCREENING Routine 02/05/2017 from Last 3 Months or Most Recently Relevant to Health Maintenance Results * Hemoglobin A1c (11/15/2024 2:26 PM EDT) Pathologist [facility] Hemoglobin A1C 6.2 <6.5 % LAB CHEMISTRY METHOD 11/15/2024 9:55 PM EDT [facility] Mean Bld Glu Estim. 131 mg/dL LAB CHEMISTRY METHOD 11/15/2024 9:55 PM EDT [facility] Blood Venous blood specimen / Unknown Venipuncture / Unknown 11/15/2024 2:26 PM EDT 11/15/2024 2:26 PM EDT Radha Rico MD LAB BLOOD ORDERA BLES Final Result [facility] [address] [place] [address], [place] [phone] * (ABNORMAL) Comprehensive metabolic panel (11/15/2024 2:26 PM EDT) [facility] Sodium 138 133 - 145 mmol/L LAB CHEMISTRY METHOD 11/15/2024 5:21 PM EDT [facility] Potassium 4.1 3.5 - 5.5 mmol/L LAB CHEMISTRY METHOD 11/15/2024 5:21 PM EDT [facility] Chloride 107 96 - 110 mmol/L LAB CHEMISTRY METHOD 11/15/2024 5:21 PM EDT [facility] CO2 28 21 - 32 mmol/L LAB CHEMISTRY METHOD 11/15/2024 5:21 PM T [facility] Anion Gap 3 3 - 11 LAB CHEMISTRY METHOD 11/15/2024 5:21 PM EDT [facility] Glucose 131(H) 70 - 100 mg/dL LAB CHEMISTRY METHOD 11/15/2024 5:21 PM [facility] BUN 13 5 - 25 mg/dL LAB CHEMISTRY METHOD 11/15/2024 5:21 PM [facility] Creatinine 0.80 0.50 - 1.10 mg/dL LAB CHEMISTRY METHOD 11/15/2024 5:21 PM [facility] eGFR 92 >=60 mL/min/1. 73m2 LAB CHEMISTRY METHOD 11/15/2024 5:21 PM [facility] Comment:Calculation based on the Chronic Kidney Disease Epidemiology Collaboration (CKD-EPI) equation refit without adjustment for race. BUN/Creatinine Ratio 16.3 LAB CHEMISTRY METHOD 11/15/2024 5:21 PM [facility] Calcium 9.6 8.5 - 10.5 mg/dL LAB CHEMISTRY METHOD 11/15/2024 5:21 PM [facility] AST (SGOT) 22 10 - 42 unit/L LAB CHEMISTRY METHOD 11/15/2024 5:21 PM [facility] ALT (SGPT) 44 10 - 60 unit/L LAB CHEMISTRY METHOD 11/15/2024 5:21 PM [facility] Alkaline Phosphatase 73 42 - 121 unit/L LAB CHEMISTRY METHOD 11/15/2024 5:21 PM [facility] Total Protein 7.1 6.0 - 8.0 g/dL LAB CHEMISTRY METHOD 11/15/2024 5:21 PM [facility] Albumin 3.7 3.2 - 5.0 g/dL LAB CHEMISTRY METHOD 11/15/2024 5:21 PM [facility] Total Bilirubin 0.3 0.0 - 1.4 mg/dL LAB CHEMISTRY METHOD 11/15/2024 5:21 PM [facility] Blood Venous blood specimen / Unknown Venipuncture / Unknown 11/15/2024 2:26 PM EDT 11/15/2024 2:26 PM EDT Radha Rico MD LAB BLOOD ORDERA BLES Final Result [facility] [address] [place] [address], [place] [phone] * IN ARTHROCENTESIS/ASPIRATION/INJECTION SMALL JOINT/BURSA WO U/S GUIDANCE (10/06/2024 3:00 PM EDT) Narrative Joelle Gutierrez PA - 10/06/2024 3:00 PM EDT ELZBIETA Wolf 10/06/2024 3:54 PM Hand / UE Inj/Asp: L thumb [facility] for osteoarthritis Details: 25 G needle, dorsal approach Medications: 40 mg triamcinolone acetonide 40 mg/mL; 0.5 mL lidocaine 1 % Informed Consent: Laterality: Left Relevant images/test results available and reviewed: yes Health status cleared: Yes Procedure/treatment, purpose, treatment alternatives, risks/potential complications and benefits explained: yes Risk/complications/benefits details: Risks of infection, thinning of the skin and temporary skin discoloration discussed. Discussed risks of temporary increased pain after injection and swelling and mild redness at injection site for couple days. Explained occasionally cortisone injection can cause facial flushing temporarily. Benefits pain management. For postop injection pain ice, Tylenol and/or NSAIDs if patient can take Patient questions answered: yes Patient agrees, verbalizes understanding, and wants to proceed: yes Consent given by: Patient Pre-procedure timeout performed: yes Joelle RUFF IN CLINIC/BEDSIDE ORDERABLES Final Result * COLONOSCOPY Anesthesia - MAC; [facility] ENDOSCOPY (09/21/2024 8:12 AM EDT) Anatomical Region Laterality Modality Endoscopy 09/21/2024 8:01 AM EDT Impressions 09/21/2024 8:14 AM EDT - The entire examined colon is normal on direct and retroflexion views. - No specimens collected. Recommendation: - Discharge patient to home. - Repeat colonoscopy in 10 years for screening purposes. Narrative 09/21/2024 8:14 AM EDT [facility] GI Patient Name: Yesenia Pruitt Procedure Date: 09/21/2024 8:01 AM Date of : 1980 Age: 44 Gender: Female Note Status: Finalized Attending MD: Pallavi Vela MD, Procedure Date No Time: 09/21/2024 Procedure: Colonoscopy Indications: Screening for colorectal malignant neoplasm Providers: Pallavi Vela MD Referring MD: Pallavi Vela MD Medicines: Monitored Anesthesia Care Complications: No immediate complications. Estimated Blood Loss: Estimated blood loss: none. Procedure: Pre-Anesthesia Assessment: - Prior to the procedure, a History and Physical was performed, and patient medications and allergies were reviewed. The patient is competent. The risks and benefits of the procedure and the sedation options and risks were discussed with the patient. All questions were answered and informed consent was obtained. Patient identification and proposed procedure were verified by the physician, the nurse, the capacity planning engineer and the alarm field technician in the pre-procedure area in the endoscopy suite. Mental Status Examination: alert and oriented. Airway Examination: normal oropharyngeal airway and neck mobility. Respiratory Examination: clear to auscultation. CV Examination: normal. Prophylactic Antibiotics: The patient does not require prophylactic antibiotics. Prior Anticoagulants: The patient has taken no anticoagulant or antiplatelet agents. ASA Grade Assessment: III - A patient with severe systemic disease. After reviewing the risks and benefits, the patient was deemed in satisfactory condition to undergo the procedure. The anesthesia plan was to use monitored anesthesia care (MAC). Immediately prior to administration of medications, the patient was re-assessed for adequacy to receive sedatives. The heart rate, respiratory rate, oxygen saturations, blood pressure, adequacy of pulmonary ventilation, and response to care were monitored throughout the procedure. The physical status of the patient was re-assessed after the procedure. After I obtained informed consent, the scope was passed under direct vision. Throughout the procedure, the patient's blood pressure, pulse, and oxygen saturations were monitored continuously. The Olympus Colonoscope was introduced through the anus and advanced to the cecum, identified by appendiceal orifice and ileocecal valve. The colonoscopy was performed without difficulty. The patient tolerated the procedure well. The quality of the bowel preparation was excellent. Findings: The perianal and digital rectal examinations were normal. The entire examined colon appeared normal on direct and retroflexion views. Procedure Code(s): --- Professional --- G0121, Colorectal cancer screening; colonoscopy on individual not meeting criteria for high risk Diagnosis Code(s): --- Professional --- Z12.11, Encounter for screening for malignant neoplasm of colon CPT copyright 2020 [employer]. All rights reserved. The codes documented in this report are preliminary and upon cloth bleaching range back tender review may be revised to meet current compliance requirements. Pallavi Vela MD 09/21/2024 8:14:38 AM This report has been signed electronically.Pallavi Vela MD Number of Addenda: 0 Note Initiated On: 09/21/2024 8:01 AM Scope Withdrawal Time: 0 hours 7 minutes 21 seconds Scope In: 8:02:10 AM Scope Out: 8:12:14 AM Endoscopy Department at [facility] - [address] [place] [id number] Procedure Note Pallavi Vela MD - 09/21/2024 [facility] GI Patient Name: Yesenia Pruitt Procedure Date: 09/21/2024 8:01 AM Date of : 1980 Age: 44 Gender: Female Note Status: Finalized Attending MD: Pallavi Vela MD, Procedure Date No Time: 09/21/2024 Procedure: Colonoscopy Indications: Screening for colorectal malignant neoplasm Providers: Pallavi Vela MD Referring MD: Pallavi Vela MD Medicines: Monitored Anesthesia Care Complications: No immediate complications. Estimated Blood Loss: Estimated blood loss: none. Procedure: Pre-Anesthesia Assessment: - Prior to the procedure, a History and Physicalwas performed, and patient medications and allergieswere reviewed. The patient is competent. The risks and benefits of the procedure and the sedation optionsand risks were discussed with the patient. Allquestions were answered and informed consent was obtained. Patient identification and proposed procedure were verified by the physician, the nurse, theanesthetist and the alarm field technician in the pre-procedure area in the endoscopy suite. Mental Status Examination: alertand oriented. Airway Examination: normal oropharyngeal airway and neck mobility. Respiratory Examination: clear to auscultation. CV Examination: normal. Prophylactic Antibiotics: The patient does notrequire prophylactic antibiotics. Prior Anticoagulants: The patient has taken no anticoagulant or antiplatelet agents. ASA Grade Assessment: III - A patient with severe systemic disease. After reviewing the risksand benefits, the patient was deemed in satisfactory condition to undergo the procedure. The anesthesia plan was to use monitored anesthesia care (MAC). Immediately prior to administration of medications, the patient was re-assessed for adequacy to receive sedatives. The heart rate, respiratory rate, oxygen saturations, blood pressure, adequacy of pulmonary ventilation, and response to care were monitored throughout the procedure. The physical status ofthe patient was re-assessed after the procedure. After I obtained informed consent, the scope was passed under direct vision. Throughout theprocedure, the patient's blood pressure, pulse, and oxygen saturations were monitored continuously. TheOlympus Colonoscope was introduced through the anus and advanced to the cecum, identified by appendiceal orifice and ileocecal valve. The colonoscopy was performed without difficulty. The patient tolerated the procedure well. The quality of the bowel preparation was excellent. Findings: The perianal and digital rectal examinations were normal. The entire examined colon appeared normal on direct and retroflexion views. Procedure Code(s): --- Professional --- G0121, Colorectal cancer screening; colonoscopy on individual not meeting criteria for high risk Diagnosis Code(s): --- Professional --- Z12.11, Encounter for screening for malignantneoplasm of colon CPT copyright 2020 [employer]. All rights reserved. The codes documented in this report are preliminary and upon cloth bleaching range back tender reviewmay be revised to meet current compliance requirements. Pallavi Vela MD 09/21/2024 8:14:38 AM This report has been signed electronically.Pallavi Vela MD Number of Addenda: 0 Note Initiated On: 09/21/2024 8:01 AM Scope Withdrawal Time: 0 hours 7 minutes 21 seconds Scope In: 8:02:10 AM Scope Out: 8:12:14 AM Endoscopy Department at [facility] - [address] [place] [phone] IMPRESSION: - The entire examined colon is normal on direct and retroflexion views. - No specimens collected. Recommendation: - Discharge patient to home. - Repeat colonoscopy in 10 years for screening purposes. Pallavi Vela MD GI~PROCEDURE ORDERABLES Fin al Result * [facility] Mammo Digital Screening w Mehran bilat (08/03/2024 1:08 PM EDT) Anatomical Region Laterality Modality Breast Bilateral Mammography 08/04/2024 7:31 AM EDT Impressions 08/04/2024 7:42 AM EDT Benign. BI-RADS CATEGORY: 1 - NEGATIVE RECOMMENDATION: Screening bilateral mammogram is recommended in 1 year. Mammo Location: [facility], [address] [place] [address], [phone], . -------- FINAL REPORT -------- Dictated By: Raquel Goldstein Dictated Date: 08/04/2024 07:31 ET Assigned Physician: Raquel Goldstein Reviewed and Electronically Signed By: Raquel Goldstein Signed Date: 08/04/2024 07:42 ET Workstation ID: [id number] Transcribed By: Self Edit Transcribed Date: 08/04/2024 07:36 ET Narrative 08/04/2024 7:42 AM EDT CLINICAL: 44 years old, Female, routine annual exam. COMPARISON: Mammograms dating back to 03-14-2020 with most recent [id number]. TECHNIQUE: Bilateral MLO and CC views were obtained digitally with 3-D mammogram (digital breast tomosynthesis). Computer-aided detection was utilized in evaluation of this exam (CAD). FINDINGS: There is no evidence of suspicious mass or architectural distortion. No worrisome calcifications are evident. There has been no significant change from prior exam(s). BREAST DENSITY: B - There are scattered areas of fibroglandular density. Procedure Note Raquel Goldstein MD - 08/04/2024 CLINICAL: 44 years old, Female, routine annual exam. COMPARISON: Mammograms dating back to 03-14-2020 with most [id number]. TECHNIQUE: Bilateral MLO and CC views were obtained digitally with 3-Dmammogram (digital breast tomosynthesis). Computer-aided detection wasutilized in evaluation of this exam (CAD). FINDINGS: There is no evidence of suspicious mass or architectural distortion. Noworrisome calcifications are evident. There has been no significantchange from prior exam(s). BREAST DENSITY: B - There are scattered areas of fibroglandular density. IMPRESSION: Benign. BI-RADS CATEGORY: 1 - NEGATIVE RECOMMENDATION: Screening bilateral mammogram is recommended in 1 year. Mammo Location: [facility], [address] [place] [address], [phone], . -------- FINAL REPORT -------- Dictated By: Raquel Goldstein Dictated Date: 08/04/2024 07:31 ET Assigned Physician: Raquel Goldstein Reviewed and Electronically Signed By: Raquel Goldstein Signed Date: 08/04/2024 07:42 ET Workstation ID: [id number] Transcribed By: Self Edit Transcribed Date: 08/04/2024 07:36 ET Radha Rico MD IMG BI PROCEDURE S Final Result * (ABNORMAL) Lipid panel with reflex to direct LDL (08/02/2024 9:39 AM EDT) Cholesterol 185 0 - 200 mg/dL LAB CHEMISTRY METHOD 08/02/2024 2:21 PM [facility] Triglycerides 181(H) 0 - 150 mg/dL LAB CHEMISTRY METHOD 08/02/2024 2:21 PM [facility] HDL 63 >=40 mg/dL LAB CHEMISTRY METHOD 08/02/2024 2:21 PM EDT [facility] LDL Calculated 86 0 - 100 mg/dL LAB CHEMISTRY METHOD 08/02/2024 2:21 PM [facility] VLDL Cholesterol Devante 36.2 mg/dL LAB CHEMISTRY METHOD 08/02/2024 2:21 PM [facility] Non HDL Chol. (LDL+VLDL) 122 <145 mg/dL LAB CHEMISTRY METHOD 08/02/2024 2:21 PM EDT [facility] Chol/HDL Ratio 2.9 0.0 - 4.4 LAB CHEMISTRY METHOD 08/02/2024 2:21 PM EDT [facility] Blood Venous blood specimen / Unknown Venipuncture / Unknown 08/02/2024 9:39 AM EDT 08/02/2024 9:39 AM EDT Radha Rico MD LAB BLOOD ORDERA BLES Final Result Performing Organization Address City/[facility]/ZIP Co de Phone Number [facility] [address] [place] [address], [place] [phone] * HPV with reflex genotype (06/05/2024 1:41 PM EST) Pathologist [facility] HPV Negative Negative LAB MICROBIOLOGY METHOD 06/07/2024 2:36 PM EST [facility] Brushing/Spatula Cervix uteri structure / Unknown 06/05/2024 1:41 PM EST 06/07/2024 6:37 AM EST Raina Garcia CNM LAB MOLECULAR DIAGNOSTICS DARRYL RABJULIOCESAR Final Result Performing Organization Address City/[facility]/ZIP Co de Phone Number [facility] [address] [place] [address], [place] [phone] * Microalbumin creatinine urine ratio (03/27/2024 9:30 AM EST) Creatinine, Urine 49.0 mg/dL LAB CHEMISTRY METHOD 03/27/2024 4:19 PM EST [facility] Microalb, Ur <5.0 0.0 - 29.0 mg/L LAB CHEMISTRY METHOD 03/27/2024 4:19 PM EST [facility] Microalb/Creat Ratio <10 <30 mg/g creat LAB CHEMISTRY METHOD 03/27/2024 4:19 PM EST [facility] Urine Urine specimen obtained by clean catch procedure / Unknown Non-blood Collection / Unknown 03/27/2024 9:30 AM EST 03/27/2024 9:39 AM EST Lulu RUFF LAB URINE ORDERABLES Final Re sult [facility] ([facility]) [facility] [address] [place] [address], [place] [phone] * Hepatitis C Screening (01/18/2024) Pathologist [facility] Hepatitis C Screening abstracted Historical Provider MD HEALTH MAINTENANCE Final Result * Diabetes Eye Exam (11/10/2023) Pathologist [facility] Diabetes: Annual Retina Eye Exam abstracted Historical Provider HEALTH MAINTENANCE Final Result * Depression Screening (10/22/2023) Pathologist [facility] Depression Screening abstracted Historical Provider MD HEALTH MAINTENANCE Final Result * HIV Screening (02/05/2017) Pathologist [facility] HIV Screening abstracted Historical Provider HEALTH MAINTENANCE Final Result from Last 3 Months or Most Recently Relevant to Health Maintenance Insurance MEDICAID - [place] MEDICARE Care Teams Stockbroker Relationship Specialty Start Date End Date Radha Rico MD [address] [place], [place] PCP - General Internal Medicine 11/12/21
--- OUTSIDE RECORDS SUMMARY | 2024-11-24 14:21 | XMS_ITS ---
Author Name [facility] Organization Unknown Care Team Organization Name Specialty Phone Email Start Date End Da te [facility] ISRA MIX Primary Care [email or web address] 07/01/[address] [facility] Mili Skaggs Primary [facility] 03/03/2022 02 4
--- NOTE | 2024-11-24 14:25 | A.OFFVIS_ITS ---
Vital Signs 11/24/24 14:29 Height 5 ft 2 in Weight 187 lb 13.341 oz BMI 34.4 BP 122/80 Blood Pressure Location Lt brachial Position Sitting Pulse 68 Pulse Source Pulse Oximeter Pulse Oximetry (%) 100 Oxygen Delivery Method Room Air Intake Visit Reasons: SLE Intake Note: Patient presents for SLE follow up. Allergies MORPHINE Allergy (Intermediate, Uncoded 07/07/24 13:53) Palpitations Medication List - Last Reconciled 11/24/24 by Kiara Peterson MD albuterol sulfate 2.5 mg inhalation Q4-6H PRN atorvastatin 80 mg PO DAILY clotrimazole-betamethasone 1-0.05 % 1 appl topical BID 2 weeks hydroxychloroquine 200 mg PO BID omeprazole 40 mg PO DAILY oxycodone 5 mg PO BID PRN pramipexole 0.125 mg PO TID pregabalin 150 mg (3 x 50 mg) PO DAILY semaglutide (Ozempic) 2 mg subcut QWEEK sertraline 225 mg PO DAILY topiramate 150 mg PO BID HPI Comments Details: Patient is a 44-year-old female with hyperlipidemia, migraine headaches, fibromyalgia and systemic lupus erythematosus here today for follow up Interval History: Patient last seen 07/07/24 with me - On Plaquenil 200mg bid and pregabalin 50mg nightly - Noticed worsening body aches and rashes since stopping azathioprine - Exam consistent with fibromyalgia - Increased pregabalin 150mg daily Today - On pregabalin 150mg daily and plaquenil 200mg bid - Optho appt 03/2025 - The increased pregabalin helped with the chronic pain - Now c/o fatigue and brain fog x 2 weeks Rheumatologic History: dx 2016 ( CHIKIS 1-640 homogeneous, malar rash, oral ulcers, fatigue body aches) on HCQ +AZA since 2016 AZA dose increased to 150 mg 04/16 reduced to 100 mg 06/2023 due to transaminitis Initial history: The patient returns for follow-up after completion of her diagnostic workup. She stated that about 1 week ago she started having left- sided chest pain radiating to her left shoulder. The pain is worse when she takes a shower and tries to relax. The pain is not exacerbated with exertion. She stated she had similar chest pain about a year ago in February 2021, she went to her PCP and had similar chest pain. She was referred for an exercise EKG stress test which was unremarkable. She has had left upper quadrant abdominal pain for more than 1 year. She had an abdominal ultrasound last year which showed mild splenomegaly. Initial history: This is 41-year-old female with a complex past medical history including SLE diagnosed around 2016 with malar rash, positive CHIKIS fatigue and body aches. She was being seen by Dr. Peterson at [place]. Last seen in 2020. she had been on hydroxychloroquine 1 tablet twice daily For 3 years as well as azathioprine but she is unsure how long she has been on azathioprine. she does get her eyes checked yearly for Plaquenil screening. Patient states she has chronic diffuse body aches most severe pain is in her lower back. lidocaine patch helps. She is on pregabalin as well. She denies any recent rashes, oral ulcers, blood or froth in urine. She also mentions her hands turning blue in the cold. This also started around the time she was diagnosed with lupus. Denies any history of digital ulcers. No history of DVT/ PE Current Rheumatology Medication(s): Plaquenil 200 mg twice a day Pregabalin 150mg daily [facility] Medical History Migraine Asthma Dyslipidemia Obstructive sleep apnea Carpal tunnel syndrome Depression Anxiety Gastroparesis Fibromyalgia, primary Lumbar spinal stenosis GERD (gastroesophageal reflux disease) Type 2 diabetes mellitus SLE (systemic lupus erythematosus) Restless leg syndrome Surgical History delivery delivered Family History Mother Cataract Glaucoma Arthritis Breast cancer Maternal Grandfather Asthma Myocardial infarct Paternal Grandfather Coronary artery disease Social History Household Members: Significant Other Housing: House Alcohol intake: never Patient Tobacco Use Status: Former Tobacco user Years Smoked: quit 18 years ago e-Cigarette/Vaping Use: Never Used service: No Current occupational status: disabled Current occupation: Formerly worked in [employer] Review of Systems Const Details: Review of Systems Constitutional: Denies fever, chills, weight loss ENT: Denies vision changes, eye pain or eye redness, dental caries, dry mouth GI: Denies nausea, vomiting, diarrhea, abdominal pain, change in BM Pulm: Denies SOB, [place], hemoptysis, wheezing Cards: Denies chest pain, palpitations Skin: Denies Raynaud's, rash, nail changes, photosensitivity, PILATES INSTRUCTOR: Denies headaches, weakness, paresthesias, recurrent falls MSK: as per HPI All other systems reviewed and are unremarkable except noted above Physical Exam Exam Exam: Vital signs reviewed Physical Examination CONSTITUITIONAL Patient alert and cooperative. Well appearing and in no apparent painful distress MSK Hands * Right Hand: Able to make a fist. No swelling or tenderness to palpation of these joints. No deformities noted. * Left Hand: Able to make a fist. No swelling or tenderness to palpation of these joints. No deformities noted. Wrists * Right Wrist: Full ROM. 70 degrees of wrist flexion, 80 degrees of wrist extension. No swelling or TTP * Left Wrist: Full ROM. 70 degrees of wrist flexion, 80 degrees of wrist extension. No swelling or TTP Elbows * Right Elbow: Full ROM. No swelling or TTP. No TTP of the medial and lateral epicondyles * Left Elbow: Full ROM. No swelling or TTP. No TTP of the medial and lateral epicondyles Shoulders * Right shoulder: Full ROM. No swelling noted. No TTP of the AC joint, subacromial bursa * Left shoulder: Full ROM. No swelling noted. No TTP of the AC joint, subacromial bursa Hip bursa: Tenderness to palpation bilaterally Knees * Right knee: Full ROM. No swelling noted. TTP of the knee joint lie and pes anserine bursa * Left knee: Full ROM. No swelling noted. TTP of the knee joint lie and pes an serine bursa. * Crepitations felt bilaterally Ankles * Right ankle: Good ankle dorsiflexion and plantar flexion. No swelling. No TTP of the ankle joint * Left ankle: Good ankle dorsiflexion and plantar flexion. No swelling. No TTP of the ankle joint Feet * Right foot: Negative squeeze test * Left foot: Negative squeeze test Tender points? * Tenderness to palpation of the bilateral trapezius, supraspinatus, anterior costochondral junctions, bilateral suboccipital muscle insertions SKIN Erythema noted in the malar distribution Vital Signs: Last Vital Signs Pulse 68 11/24/24 14:29 BP 122/80 11/24/24 14:29 Pulse Ox 100 11/24/24 14:29 Oxygen Delivery Method Room Air 11/24/24 14:29 BMI result Body Mass Index 34.4 Results Reviewed Results Reviewed: Laboratory Tests 07/07/24 14:49 WBC 5.0 RBC 4.80 Hgb 12.3 Hct 37.8 Plt Count 217 ESR 23 H Sodium 140 Potassium 4.4 Chloride 109 H Carbon Dioxide 25 BUN 17 H Creatinine 0.72 AST 39 H ALT 60 H C-Reactive Protein 0.41 Laboratory Tests 03/07/24 16:40 Urine Color Yellow Ur Specific [place] 1.020 Urine Protein Negative U Random Total Protein < 7 Laboratory Tests 03/07/24 07/07/24 16:45 14:49 Double Strand DNA Ab 1 Complement C3 153 Complement C4 29 Assessment & Plan Assessment & Plan (1) SLE (systemic lupus erythematosus): Comment: dx 2016 ( CHIKIS 1-640 homogeneous, malar rash, oral ulcers, fatigue body aches) on HCQ +AZA since 2016 AZA dose increased to 150 mg 04/16 reduced to 100 mg 06/2023 due to transaminitis Code(s): M32.9 - Systemic lupus erythematosus, unspecified Category: Medical Qualifiers: Systemic lupus erythematosus type: unspecified Systemic lupus erythem atosus organ involvement: unspecified Qualified Code(s): M32.9 - Systemic lupus erythematosus, unspecified Plan: #SLE Patient is a 44-year-old female with SLE currently in remission. Plan - Plaquenil 200mg bid - Labs today: CBC, CMP, ESR, CRP, C3, C4, dsDNA, UA, UPC - RTC 6 months (2) Fibromyalgia, primary: Code(s): M79.7 - Fibromyalgia Category: Medical Plan: #Fibromyalgia Patient with active fibromyalgia today as evidenced by multiple tender points on examination. Discussed escalating therapy with increasing doses of pregabalin. We will also add cyclobenzaprine. \ Plan - Increase pregabalin to 200mg daily: 100mg at night and 100mg in the AM - Cyclobenzaprine 10mg nightly (3) Encounter for monitoring of hydroxychloroquine therapy: Code(s): Z51.81 - Encounter for therapeutic drug level monitoring; Z79.899 - Other terminal operations manager (current) drug therapy Category: Medical Plan: #Long-term Use of Hydroxychloroquine Discussed with patient the risks and benefits of hydroxychloroquine in managing the rheumatic condition Benefits include: - Reduced pain, reduce mortality, maintenance of remission and reduction of flares Risks include: - GI upset, skin hyperpigmentation, retinal toxicity (especially after more than 5 years of use), myopathy Advised yearly ophthalmology visits Plan I spent 30 minutes reviewing the record and labs, taking a history, examining the patient, discussing the treatment plan, ordering diagnostic work up and documenting in the medical record Orders: Orders Anti DNA DS Antibody Today M32.9 - Systemic lupus erythematosus, unspecified Complement C3 Today M32.9 - Systemic lupus erythematosus, unspecified Erythrocyte Sedimentation Rate Today M32.9 - Systemic lupus erythematosus, unspecified UA w Microscopic Today M32.9 - Systemic lupus erythematosus, unspecified Complete Blood Count Auto Diff Today M32.9 - Systemic lupus erythematosus, unspecified, Z79.60 - [facility] (current) use of unspecified immunomodulators and immunosuppressants Complement C4 Today M32.9 - Systemic lupus erythematosus, unspecified C Reactive Protein Today M32.9 - Systemic lupus erythematosus, unspecified Protein Creatinine Ratio, Ur Today M32.9 - Systemic lupus erythematosus, unspecified Comprehensive [place]. Panel Fast Today M32.9 - Systemic lupus erythematosus, unspecified, Z79.60 - intermodal owner operator truck driver (current) use of unspecified immunomodulators and immunosuppressants Medications: New cyclobenzaprine 10 mg PO BEDTIME 90 tabs 1RF 90 days M79.7 - Fibromyalgia Changed From pregabalin Take 2 tablets at night and 1 tablet in the morning 150 mg (3 x 50 mg) PO DAILY 30 caps 3RF M79.7 - Fibromyalgia To pregabalin Take 2 tablets at night and 2 tablet in the morning 200 mg (4 x 50 mg) PO DAILY 120 caps 5RF 30 days M79.7 - Fibromyalgia Refilled hydroxychloroquine 200 mg PO BID 180 tabs 1RF M32.9 - Systemic lupus erythematosus, unspecified Coding Level of Care Code Est Pt Level 4 (37821) Complex EM visit Add On G2211 Diagnoses Systemic lupus erythematosus, unspecified SLE type, unspecified organ involvement status M32.9 Systemic lupus erythematosus type: unspecified Systemic lupus erythematosus organ involvement: unspecified Fibromyalgia, primary M79.7 Encounter for monitoring of hydroxychloroquine therapy Z51.81; Z79.899
[2024-11-24 14:29] VITALS: BP 122/80; PULSE 68; O2SAT 100; BMI 34.4
== END 2024-11-24 14:54 | disposition home or self-care (01) ==
LOC: HO.RHE 14:20
PROVIDERS: PCP Family Medicine; Visit Provider Student in an Organized Health Care Education/Training Program
DX: M32.9 Systemic lupus erythematosus, unspecified (principal); M79.7 Fibromyalgia; Z51.81 Encounter for therapeutic drug level monitoring; Z79.899 Other long term (current) drug therapy
CPT/HCPCS: 99214; G2211

== ENCOUNTER → 2024-11-24 14:19 | Outpatient (BNVA) | payer MEDICARE, MEDICAID, SELFPAY | PROVIDERS: PCP Family Medicine; Visit Provider Student in an Organized Health Care Education/Training Program | DX: M32.9 Systemic lupus erythematosus, unspecified (principal); M79.7 Fibromyalgia; Z51.81 Encounter for therapeutic drug level monitoring; Z79.899 Other long term (current) drug therapy; Z79.60 Long term (current) use of unspecified immunomodulators and immunosuppressants | CPT/HCPCS: 99212 ==

== ENCOUNTER 2024-11-28 10:30 | Outpatient (REF) | payer MEDICARE, MEDICAID, SELFPAY ==
[2024-11-28 10:41] LABS: MANUAL DIFF FLAG NO
--- OUTSIDE RECORDS SUMMARY | 2024-11-28 11:11 | XMS_ITS | Clinical Summary ---
Author Organization [facility] Address [address] [place] [address] Care Team Providers Care Wildlife Enforcement Major Name Role Phone Artis Quevedo MD Primary Care Provider [phone] Allergies Active Allergy Reactions Criticality Noted Date [...] age to complete this topic Care Teams Wildlife Enforcement Major Relationship Specialty Start Date End Date Artis Quevedo MD PCP - General Internal Medicine 03/12/20
--- OUTSIDE RECORDS SUMMARY | 2024-11-28 11:11 | XMS_ITS | Clinical Summary ---
Author Organization [facility] [address] [facility] Address [address] [place] [phone] Phone Care Team Providers Care Food Scientist Name Role Phone Radha Rico MD Primary [...] (BMI) of 35.0 to 35.9 in adult (CMS/[facility] V24, [facility] V28) Inject 2 mg under the skin [...] 0.125 mg 3 times daily Diabetic gastroparesis ([facility] V24, [facility] V28 ) 10/24/2018 Fibromyalgia 06/29/2018 Assessment & Plan (11/15/2024 2:22 PM EDT): Continue pregabalin nightly which is prescribed through rheumatology Assessment & Plan (05/18/2024 4:57 PM EST): Continue pregabalin nightly Type 2 diabetes mellitus wit h neurological manifestations, controlled ([facility] V24, [facility] V28) 06/04/2018 Overview (02/09/2024): Carpal tunnel syndrome [...] Future Hemoglobin A1c; Future Systemic lupus erythematosus ([facility] V24, [facility]/ CC V28) 09/14/2017 Overview (02/09/2024): Pos [...] 10/14/2011 Overview (05/26/2024): Following with sleep medicine [facility] Assessment & Plan (05/18/2024 4:57 PM EST): Continue follow-up with sleep medicine [facility]. See HPI Steatosis of liver 10/14/2011 Overview [...] 2:30 PM EDT Office Visit Adult Medicine [address] [phone] Radha Rico MD Type 2 diabetes mellitus with neurological manifestations, controlled (CMS/HCC V24, CMS/[facility] V28) (Primary Dx); Class 1 obesity due [...] AM EDT Office Visit Adult Medicine [address] [phone] Mili Skaggs PA Other infective acute otitis externa of left ear (Primary Dx); Recurrent acute suppurative otitis media without spontaneous rupture of left tympanic membrane; Type 2 diabetes mellitus with neurological manifestations, controlled ([facility] V24, [facility] V28) 10/31/2024 Nurse Triage Adult Medicine [address] [phone] Analy Tomas RN 10/06/2024 3:00 PM EDT Office Visit Orthopedic Surgery - [place] [facility] [address] [place] [phone] Joelle Gutierrez PA [facility] arthritis (Primary Dx) 09/21/2024 7:57 AM EDT Anesthesia Event [facility] [address] [place] [phone] Alan Gordon MD 09/21/2024 7:05 AM EDT - 09/21/2024 11:59 PM EDT Hospital Encounter [facility] [address] [place] [phone] Pallavi Vela MD Gomes, Sheldon B, MD Steele, Matthew G, CRNA Colon cancer screening Discharge Disposition: Home or Self Care from Last 3 Months Immunizations Name Administration Dates Next Due HepB-CpG (Heplisav-B) 18yo and older 03/01/2024 Hepatitis B (Hlrovqc-X-Jehcs , Recombivax HB-Adult) 19yo and older 08/02/2024,02/02/2024 [...] DX:Asthma Rosacea DX:Rosacea Shingles DX:Shingles Diabetic gastroparesis ([facility]/ [facility] V24, [facility] V28) 10/24/2018 DX:Diabetic gastroparesis (H CC) Covid-19 [...] care for your loved ones. For example, salesperson children's shoes or elderly care for an older adult? [...] 12:30 PM EST Office Visit Adult Medicine [address] [phone] Radha Rico MD [address] [place] [address] 08/07/2025 2:20 PM EDT Appointment Radiology Department - [address] [phone] Health Maintenance Due Date Last Done Comments [...] neurological manifestations, controlled (CMS/HCC V24, CMS/HCC V28) OR ARTHROCENTESIS/ASPIRA TION/INJECTION SMALL JOINT/BURSA WO U/S GUIDANCE [...] Hemoglobin A1c (11/15/2024 2:26 PM EDT) Pathologist [facility] Hemoglobin A1C 6.2 <6.5 % LAB CHEMISTRY METHOD 11/15/2024 9:55 PM EDT [facility] Mean Bld Glu Estim. 131 mg/dL LAB CHEMISTRY METHOD 11/15/2024 9:55 PM EDT [facility] Blood Venous blood specimen / Unknown Venipuncture / Unknown 11/15/2024 2:26 PM EDT 11/15/2024 2:26 PM EDT Radha Rico MD LAB BLOOD ORDERA BLES Final Result [facility] [address] [place] [address], [place] [phone] * (ABNORMAL) Comprehensive metabolic panel (11/15/2024 2:26 PM EDT) [facility] Sodium 138 133 - 145 mmol/L LAB CHEMISTRY METHOD 11/15/2024 5:21 PM EDT [facility] Potassium 4.1 3.5 - 5.5 mmol/L LAB CHEMISTRY METHOD 11/15/2024 5:21 PM EDT [facility] Chloride 107 96 - 110 mmol/L LAB CHEMISTRY METHOD 11/15/2024 5:21 PM EDT [facility] CO2 28 21 - 32 mmol/L LAB CHEMISTRY METHOD 11/15/2024 5:21 PM T [facility] Anion Gap 3 3 - 11 LAB CHEMISTRY METHOD 11/15/2024 5:21 PM EDT [facility] Glucose 131(H) 70 - 100 mg/dL LAB CHEMISTRY METHOD 11/15/2024 5:21 PM [facility] BUN 13 5 - 25 mg/dL LAB CHEMISTRY METHOD 11/15/2024 5:21 PM [facility] Creatinine 0.80 0.50 - 1.10 mg/dL LAB CHEMISTRY METHOD 11/15/2024 5:21 PM [facility] eGFR 92 >=60 mL/min/1. 73m2 LAB CHEMISTRY METHOD 11/15/2024 5:21 PM [facility] Comment:Calculation based on the Chronic Kidney Disease Epidemiology Collaboration (CKD-EPI) equation refit without adjustment for race. BUN/Creatinine Ratio 16.3 LAB CHEMISTRY METHOD 11/15/2024 5:21 PM [facility] Calcium 9.6 8.5 - 10.5 mg/dL LAB CHEMISTRY METHOD 11/15/2024 5:21 PM [facility] AST (SGOT) 22 10 - 42 unit/L LAB CHEMISTRY METHOD 11/15/2024 5:21 PM [facility] ALT (SGPT) 44 10 - 60 unit/L LAB CHEMISTRY METHOD 11/15/2024 5:21 PM [facility] Alkaline Phosphatase 73 42 - 121 unit/L LAB CHEMISTRY METHOD 11/15/2024 5:21 PM [facility] Total Protein 7.1 6.0 - 8.0 g/dL LAB CHEMISTRY METHOD 11/15/2024 5:21 PM [facility] Albumin 3.7 3.2 - 5.0 g/dL LAB CHEMISTRY METHOD 11/15/2024 5:21 PM [facility] Total Bilirubin 0.3 0.0 - 1.4 mg/dL LAB CHEMISTRY METHOD 11/15/2024 5:21 PM [facility] Blood Venous blood specimen / Unknown Venipuncture / Unknown 11/15/2024 2:26 PM EDT 11/15/2024 2:26 PM EDT Radha Rico MD LAB BLOOD ORDERA BLES Final Result [facility] [address] [place] [address], [place] [phone] * OR ARTHROCENTESIS/ASPIRATION/INJECTION SMALL JOINT/BURSA WO U/S GUIDANCE (10/06/2024 [...] Final Result * COLONOSCOPY Anesthesia - MAC; [facility] ENDOSCOPY (09/21/2024 8:12 AM EDT) Anatomical Region Laterality Modality Endoscopy 09/21/2024 8:01 AM EDT Impressions 09/21/2024 8:14 AM EDT - The entire examined colon is normal on direct and retroflexion views. - No specimens collected. Recommendation: - Discharge patient to home. - Repeat colonoscopy in 10 years for screening purposes. Narrative 09/21/2024 8:14 AM EDT [facility] Patient Name: Yesenia Pruitt Procedure Date: [...] verified by the physician, the nurse, the flatware maker and the thermoplastic technician in the pre-procedure area in the [...] malignant neoplasm of colon CPT copyright 2020 [employer]. All rights reserved. The codes documented in this report are preliminary and upon icebox worker review may be revised to meet current compliance requirements. Pallavi Vela MD 09/21/2024 8:14:38 AM This report has been signed electronically.Pallavi Vela MD Number of Addenda: 0 Note Initiated On: 09/21/2024 8:01 AM Scope Withdrawal Time: 0 hours 7 minutes 21 seconds Scope In: 8:02:10 AM Scope Out: 8:12:14 AM Endoscopy Department at [facility] - [address] [place] [phone] Procedure Note Pallavi Vela MD - 09/21/2024 [facility] Patient Name: Yesenia Pruitt Procedure Date: [...] the physician, the nurse, theanesthetist and the thermoplastic technician in the pre-procedure area in the [...] for malignantneoplasm of colon CPT copyright 2020 [employer]. All rights reserved. The codes documented in this report are preliminary and upon icebox worker reviewmay be revised to meet current compliance requirements. Pallavi Vela MD 09/21/2024 8:14:38 AM This report has been signed electronically.Pallavi Vela MD Number of Addenda: 0 Note Initiated On: 09/21/2024 8:01 AM Scope Withdrawal Time: 0 hours 7 minutes 21 seconds Scope In: 8:02:10 AM Scope Out: 8:12:14 AM Endoscopy Department at [facility] - [address] [place] [phone] IMPRESSION: - The entire examined colon is [...] is recommended in 1 year. Mammo Location: [facility], [address] [place] [address], [phone], . -------- FINAL REPORT -------- Dictated By: Raquel Goldstein Dictated Date: 08/04/2024 07:31 ET Assigned Physician: Raquel Goldstein Reviewed and Electronically Signed By: Raquel Goldstein Signed Date: 08/04/2024 07:42 ET Workstation ID: [id number] Transcribed By: Self Edit Transcribed Date: 08/04/2024 07:36 ET Narrative 08/04/2024 7:42 AM EDT CLINICAL: 44 years old, Female, routine annual exam. COMPARISON: Mammograms dating back to 03-14-2020 with most recent [id number]. TECHNIQUE: Bilateral MLO and CC views were [...] Mammograms dating back to 03-14-2020 with most [id number]. TECHNIQUE: Bilateral MLO and CC views were [...] is recommended in 1 year. Mammo Location: [facility], [address] [place] [address], [id number], . -------- FINAL REPORT -------- Dictated By: Raquel Goldstein Dictated Date: 08/04/2024 07:31 ET Assigned Physician: Raquel Goldstein Reviewed and Electronically Signed By: Raquel Goldstein Signed Date: 08/04/2024 07:42 ET Workstation ID: [id number] Transcribed By: Self Edit Transcribed Date: 08/04/2024 07:36 ET Radha Rico MD IMG BI PROCEDURE S Final Result * (ABNORMAL) Lipid panel with reflex to direct LDL (08/02/2024 9:39 AM EDT) Cholesterol 185 0 - 200 mg/dL LAB CHEMISTRY METHOD 08/02/2024 2:21 PM [facility] Triglycerides 181(H) 0 - 150 mg/dL LAB CHEMISTRY METHOD 08/02/2024 2:21 PM [facility] HDL 63 >=40 mg/dL LAB CHEMISTRY METHOD 08/02/2024 2:21 PM EDT [facility] LDL Calculated 86 0 - 100 mg/dL LAB CHEMISTRY METHOD 08/02/2024 2:21 PM [facility] VLDL Cholesterol Devante 36.2 mg/dL LAB CHEMISTRY METHOD 08/02/2024 2:21 PM [facility] Non HDL Chol. (LDL+VLDL) 122 <145 mg/dL LAB CHEMISTRY METHOD 08/02/2024 2:21 PM EDT [facility] Chol/HDL Ratio 2.9 0.0 - 4.4 LAB CHEMISTRY METHOD 08/02/2024 2:21 PM EDT [facility] Blood Venous blood specimen / Unknown Venipuncture / Unknown 08/02/2024 9:39 AM EDT 08/02/2024 9:39 AM EDT Radha Rico MD LAB BLOOD ORDERA BLES Final Result Performing Organization Address City/[facility]/ZIP Co de Phone Number [facility] [address] [place] [address], [place] [phone] * HPV with reflex genotype (06/05/2024 1:41 PM EST) Pathologist [facility] HPV Negative Negative LAB MICROBIOLOGY METHOD 06/07/2024 2:36 PM EST [facility] Brushing/Spatula Cervix uteri structure / Unknown 06/05/2024 1:41 PM EST 06/07/2024 6:37 AM EST Raina Garcia CNM LAB MOLECULAR DIAGNOSTICS DARRYL RABJULIOCESAR Final Result Performing Organization Address City/[facility]/ZIP Co de Phone Number [facility] [address] [place] [address], [place] [phone] * Microalbumin creatinine urine ratio (03/27/2024 9:30 AM EST) Creatinine, Urine 49.0 mg/dL LAB CHEMISTRY METHOD 03/27/2024 4:19 PM EST [facility] Microalb, Ur <5.0 0.0 - 29.0 mg/L LAB CHEMISTRY METHOD 03/27/2024 4:19 PM EST [facility] Microalb/Creat Ratio <10 <30 mg/g creat LAB CHEMISTRY METHOD 03/27/2024 4:19 PM EST [facility] Urine Urine specimen obtained by clean catch procedure / Unknown Non-blood Collection / Unknown 03/27/2024 9:30 AM EST 03/27/2024 9:39 AM EST Lulu RUFF LAB URINE ORDERABLES Final Re sult [facility] ([facility]) [facility] [address] [place] [address], [place] [phone] * Hepatitis C Screening (01/18/2024) Pathologist [facility] Hepatitis C Screening abstracted Historical Provider MD HEALTH MAINTENANCE Final Result * Diabetes Eye Exam (11/10/2023) Pathologist [facility] Diabetes: Annual Retina Eye Exam abstracted Historical Provider HEALTH MAINTENANCE Final Result * Depression Screening (10/22/2023) Pathologist [facility] Depression Screening abstracted Historical Provider MD HEALTH MAINTENANCE Final Result * HIV Screening (02/05/2017) Pathologist [facility] HIV Screening abstracted Historical Provider HEALTH MAINTENANCE Final Result from Last 3 Months or Most Recently Relevant to Health Maintenance Insurance MEDICAID - [place] MEDICARE Care Teams Food Scientist Relationship Specialty Start Date End Date Radha Rico MD [address], [place] PCP - General Internal Medicine 11/12/21
[2024-11-28 11:12] LABS: Hematocrit 37.1 % (37.0-47.0); Hemoglobin 11.9 g/dl (12.0-16.0); Imm Gran Abs Auto 0.01 X10*3/uL (0.00-0.03); Imm Gran Pct Auto 0.2 % (0.0-0.4); Lymphocytes Absolute Auto 1.0 X10*3/uL (1.2-4.9); Mean Corpuscular HGB Conc 32.1 g/dl (31.0-35.0); Mean Corpuscular Hemoglobin 25.4 pg (27.0-33.0); Mean Corpuscular Volume 79.1 fL (80.0-98.0); NRBC Abs Auto 0.000 X10*3/uL (0.0-0.012); NRBC Pct Auto 0.0 /100WBC (0.0-0.2); Platelet Count 197 X10*3/uL (160-400); Red Blood Count 4.69 X10*6/uL (4.20-5.50); White Blood Count 5.3 X10*3/uL (4.8-10.8)
[2024-11-28 11:57] LABS: Appearance Urine Clear; Glucose Urine UA Negative (Negative); PH 6.0 (5.0-9.0); Specific Gravity - Urine 1.020 (1.005-1.025); UMIC TRIGGER UA YES
[2024-11-28 11:57] LABS: Alanine Aminotransferase 35 U/L (0-31); Albumin Level 4.2 g/dL (3.5-5.0); Alkaline Phosphatase 60 U/L (39-117); Anion Gap 11 (12-20); Aspartate Amino Transferase 31 U/L (5-31); Blood Urea Nitrogen 14 mg/dL (9-16); Calcium 9.7 mg/dL (8.4-10.2); Carbon Dioxide 25 mmol/L (22-29); Chloride 108 mmol/L (96-108); Estimated Glomerular Filt Rate > 60; Potassium 4.6 mmol/L (3.3-5.1); Sodium 139 mmol/L (135-145); Total Protein 7.5 g/dL (6.5-8.0)
[2024-11-28 12:49] LABS: Total Protein Urine Random < 7 mg/dL (<12)
== END 2024-11-28 10:31 | disposition home or self-care (01) ==
LOC: HO.LAB 10:30
PROVIDERS: PCP Family Medicine; Visit Provider Student in an Organized Health Care Education/Training Program
DX: M32.9 Systemic lupus erythematosus, unspecified (principal); Z01.84 Encounter for antibody response examination; Z79.60 Long term (current) use of unspecified immunomodulators and immunosuppressants
CPT/HCPCS: 36415; 80053; 81001; 82570; 84156; 85025; 85652; 86140; 86160; 86225

== ENCOUNTER 2025-01-19 10:53 | Outpatient (REF) | payer MEDICARE, MEDICAID, SELFPAY ==
--- OUTSIDE RECORDS SUMMARY | 2025-01-19 12:38 | XMS_ITS | Clinical Summary ---
Author Organization [facility] [address] [facility] Address [address] [place] [phone] Phone Care Team Providers Care Smoke Jumper Supervisor Name Role Phone Radha Rico MD Primary [...] 2 (two) times a day. 4 Active cyclobenzaprine (FLEXERIL) 10 mg tabletIndication s:Spinal stenosis of lumbar region with neurogenic claudication Take 1 tablet (10 mg total) by mouth at bedtime as needed for muscle spasms (nighly prn). 60 tablet 5 Active busPIRone (BUSPAR) 10 mg tablet 5 Active doxepin (SINEquan) 25 mg capsule Take 2 capsules (50 mg total) by mouth. Active naloxone (NARCAN) 4 mg/0.1 mL nasal spray 4 Active clotrimazole-bet amethasone (LOTRISONE) 1-0.05 % cream 4 Active topiramate (TOPAMAX) 50 mg tabletIndication s:Migraine without aura and without status migrainosus, not intractable Take 1 tablet (50 mg total) by mouth 1 (one) time each day in the morning. 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 9 mL 5 05/14/19 26 Active pramipexole (MIRAPEX) 0.125 mg tabletIndication s:Restless leg syndrome Take 1 tablet (0.125 mg total) by mouth 3 (three) times a day. 270 each 5 05/14/19 26 Active albuterol HFA (PROAIR HFA ; PROVENTIL HFA ; VENTOLIN HFA) 90 mcg/actuation inhalerIndicatio ns:Mild intermittent asthma without complication Inhale 1 puff by mouth every 6 (six) hours if needed for wheezing. 6.7 g 5 05/14/19 26 Active omeprazole (PriLOSEC) [address] capsuleIndicatio ns:Gastroesophag eal reflux disease without esophagitis Take 1 capsule (40 mg total) by mouth 1 (one) time each day. 90 capsule 5 Active atorvastatin (LIPITOR) 80 mg tabletIndication s:Hyperlipidemia LDL goal <70 Take 1 tablet (80 mg total) by mouth 1 (one) time each day. 90 tablet 5 Active oxyCODONE-acetam inophen (PERCOCET) 5-325 mg per tablet Take 1 tablet by mouth every 6 (six) hours if needed for severe pain for up to 28 days. Max Daily Amount: 4 tablets 112 tablet 5 01/27/20 25 Active oxyCODONE-acetam inophen (PERCOCET) 5-325 mg per tablet Take 1 tablet by mouth every 6 (six) hours if needed for severe pain for up to 28 days. Max Daily Amount: 4 tablets 112 tablet 5 12/30/19 25 Discontinu ed(Reorder ) Active Problems Problem [...] 0.125 mg 3 times daily Diabetic gastroparesis ([facility] V24, [facility] V28 ) 10/24/2018 Fibromyalgia 06/29/2018 Assessment & Plan (11/15/2024 2:22 PM EDT): Continue pregabalin nightly which is prescribed through rheumatology Assessment & Plan (05/18/2024 4:57 PM EST): Continue pregabalin nightly Type 2 diabetes mellitus wit h neurological manifestations, controlled ([facility] V24, [facility] V28) 06/04/2018 Overview (02/09/2024): Carpal tunnel [...] Future Hemoglobin A1c; Future Systemic lupus erythematosus (CMS/HCC V24, CMS/H CC V28) 09/14/2017 Overview (02/09/2024): Pos CHIKIS, [...] 10/14/2011 Overview (05/26/2024): Following with sleep medicine [facility] Assessment & Plan (05/18/2024 4:57 PM EST): Continue follow-up with sleep medicine [facility]. See HPI Steatosis of liver 10/14/2011 [...] needed for wheezing. Depression 10/14/2011 Overview (02/09/2024): [place] Assessment & Plan (11/15/2024 2:22 PM EDT): [...] Description 11/15/2024 2:30 PM EDT Office Visit [address] [phone] Radha Rico MD Type 2 diabetes mellitus with neurological manifestations, controlled ([facility] V24, [facility] V28) (Primary Dx); Class 1 obesity [...] unspecified SLE type, unspecified organ involvement status ([facility] V24, [facility] V28); Mild intermittent asthma without complication; Chronic left ear pain; Tinnitus of left ear; Tympanic membrane disorder, left 11/01/2024 10:00 AM EDT Office Visit [address] [phone] Mili Skaggs PA Other infective acute otitis externa of left ear (Primary Dx); Recurrent acute suppurative otitis media without spontaneous rupture of left tympanic membrane; Type 2 diabetes mellitus with neurological manifestations, controlled ([facility] V24, [facility] V28) 10/31/2024 Nurse Triage [address] [phone] Analy Tomas, JIMMIE from Last 3 Months Immunizations Name Administration Dates Next Due HepB-CpG (Heplisav-B) 18yo and older 03/01/2024 Hepatitis B (Dxtooxh-Y-Uvyks , Recombivax HB-Adult) 19yo and older 08/02/2024,02/02/2024 [...] DX:Asthma Rosacea DX:Rosacea Shingles DX:Shingles Diabetic gastroparesis ([facility]/ [facility] V24, [facility] V28) 10/24/2018 DX:Diabetic gastroparesis (H CC) [...] ed Within the last 3 months, ho anjelica many times did you visit the emergency [...] care for your loved ones. For example, children's lunchroom supervisor or elderly care for an older adult? [...] 12:30 PM EST Office Visit Adult Medicine [address] [phone] Radha Rico MD [address] [place] [address] 08/07/2025 2:20 PM EDT Appointment Radiology Department - [place] [address] [place] [address] Health Maintenance Due Date Last Done Comments [...] Additional history exists Breast Cancer Screening 08/03/2026 08/04/19 25, 08/23/2023, 08/23/2023, Additional history exists Cervical Cancer Screening: HPV 06/05/2029 06/05/2024, 07/10/2016 Cholesterol Screening (Lipid Panel) 08/02/2029 08/02/2024, 01/18/2024, 01/18/2024, Additional history exists DTaP,Tdap,and Td Vaccines (3 - Td or Tdap) 07/28/2032 07/28/2022, 05/17/2012 Colorectal Cancer Screening: Colonoscopy 09/21/2034 09/21/2024 RSV Immunization Adult Patients (1 - 1-dose 75+ series) 2053 HIV Screening Completed 02/05/2017 COVID-19 Vaccine Discontinued 03/14/2021, , 08/02/2020, Additional history exists Hepatitis C Screening Completed 01/18/2024 Hepatitis B Vaccines Completed 08/02/2024, 03/01/2024, 02/02/2024 Depression Screening Completed 11/01/2024, 10/22/19 24 HIB Vaccines Aged Out No longer eligi [...] neurological manifestations, controlled (CMS/HCC V24, CMS/HCC V28) COLONOSCOPY Routine 09/21/2024 8:12 AM EDT Colon [...] * Hemoglobin A1c (11/15/2024 2:26 PM EDT) Hemoglobin A1C 6.2 <6.5 % LAB CHEMISTRY METHOD 11/15/2024 9:55 PM EDT [facility] Mean Bld Glu Estim. 131 mg/dL LAB CHEMISTRY METHOD 11/15/2024 9:55 PM EDT [facility] Blood Venous blood specimen / Unknown Venipuncture / Unknown 11/15/2024 2:26 PM EDT 11/15/2024 2:26 PM EDT Radha Rico MD LAB BLOOD ORDERA BLES Final Result [facility] [address] [place] [address], * (ABNORMAL) Comprehensive metabolic panel (11/15/2024 2:26 PM EDT) Sodium 138 133 - 145 mmol/L LAB CHEMISTRY METHOD 11/15/2024 5:21 PM EDT [facility] Potassium 4.1 3.5 - 5.5 mmol/L LAB CHEMISTRY METHOD 11/15/2024 5:21 PM EDT [facility] Chloride 107 96 - 110 mmol/L LAB CHEMISTRY METHOD 11/15/2024 5:21 PM EDT [facility] CO2 28 21 - 32 mmol/L LAB CHEMISTRY METHOD 11/15/2024 5:[address] [facility] Anion Gap 3 3 - 11 LAB CHEMISTRY METHOD 11/15/2024 5:[address] [facility] Glucose 131(H) 70 - 100 mg/dL LAB CHEMISTRY METHOD 11/15/2024 5:[address] [facility] BUN 13 5 - 25 mg/dL LAB CHEMISTRY METHOD 11/15/2024 5:[address] [facility] Creatinine 0.80 0.50 - 1.10 mg/dL LAB CHEMISTRY METHOD 11/15/2024 5:[address] [facility] eGFR 92 >=60 mL/min/1. 73m2 LAB CHEMISTRY METHOD 11/15/2024 5:[address] [facility] Comment:Calculation based on the Chronic Kidney Disease Epidemiology Collaboration (CKD-EPI) equation refit without adjustment for race. BUN/Creatinine Ratio 16.3 LAB CHEMISTRY METHOD 11/15/2024 5:[address] [facility] Calcium 9.6 8.5 - 10.5 mg/dL LAB CHEMISTRY METHOD 11/15/2024 5:[address] [facility] AST (SGOT) 22 10 - 42 unit/L LAB CHEMISTRY METHOD 11/15/2024 5:[address] [facility] ALT (SGPT) 44 10 - 60 unit/L LAB CHEMISTRY METHOD 11/15/2024 5:[address] [facility] Alkaline Phosphatase 73 42 - 121 unit/L LAB CHEMISTRY METHOD 11/15/2024 5:[address] [facility] Total Protein 7.1 6.0 - 8.0 g/dL LAB CHEMISTRY METHOD 11/15/2024 5:[address] [facility] Albumin 3.7 3.2 - 5.0 g/dL LAB CHEMISTRY METHOD 11/15/2024 5:21 PM EDT [facility] Total Bilirubin 0.3 0.0 - 1.4 mg/dL LAB CHEMISTRY METHOD 11/15/2024 5:21 PM EDT [facility] Blood Venous blood specimen / Unknown Venipuncture / Unknown 11/15/2024 2:26 PM EDT 11/15/2024 2:26 PM EDT Radha Rico MD LAB BLOOD ORDERA BLES Final Result [facility] ([facility]) [facility] [address] [place] [address], [place] [phone] * COLONOSCOPY Anesthesia - MAC; [facility] ENDOSCOPY (09/21/2024 8:12 AM EDT) Anatomical Region Laterality Modality Endoscopy 09/21/2024 8:01 AM EDT Impressions 09/21/2024 8:14 AM EDT - The entire examined colon is normal on direct and retroflexion views. - No specimens collected. Recommendation: - Discharge patient to home. - Repeat colonoscopy in 10 years for screening purposes. Narrative 09/21/2024 8:14 AM EDT [facility] GI Patient Name: Yesenia Pruitt Procedure Date: [...] verified by the physician, the nurse, the program development specialist and the optical engineering technician in the pre-procedure area in the [...] malignant neoplasm of colon CPT copyright 2020 [employer]. All rights reserved. The codes documented in this report are preliminary and upon clinical research specialist review may be revised to meet current compliance requirements. Pallavi Vela MD 09/21/2024 8:14:38 AM This report has been signed electronically.Pallavi Vela MD Number of Addenda: 0 Note Initiated On: 09/21/2024 8:01 AM Scope Withdrawal Time: 0 hours 7 minutes 21 seconds Scope In: 8:02:10 AM Scope Out: 8:12:14 AM Endoscopy Department at [facility] - [address] [place] [phone] Procedure Note Pallavi Vela MD - 09/21/2024 [facility] GI Patient Name: Yesenia Pruitt Procedure Date: [...] the physician, the nurse, theanesthetist and the optical engineering technician in the pre-procedure area in the [...] for malignantneoplasm of colon CPT copyright 2020 [employer]. All rights reserved. The codes documented in this report are preliminary and upon clinical research specialist reviewmay be revised to meet current compliance requirements. Pallavi Vela MD 09/21/2024 8:14:38 AM This report has been signed electronically.Pallavi Vela MD Number of Addenda: 0 Note Initiated On: 09/21/2024 8:01 AM Scope Withdrawal Time: 0 hours 7 minutes 21 seconds Scope In: 8:02:10 AM Scope Out: 8:12:14 AM Endoscopy Department at [address] [phone] IMPRESSION: - The entire examined colon is [...] is recommended in 1 year. Mammo Location: [place] [facility], [address] [place] [address], [phone], . -------- FINAL REPORT -------- Dictated By: Raquel Goldstein Dictated Date: 08/04/2024 07:31 ET Assigned Physician: Raquel Goldstein Reviewed and Electronically Signed By: Raquel Goldstein Signed Date: 08/04/2024 07:42 ET Workstation ID: [id number] Transcribed By: Self Edit Transcribed Date: 08/04/2024 07:36 ET Narrative 08/04/2024 7:42 AM EDT CLINICAL: 44 years old, Female, routine annual exam. COMPARISON: Mammograms dating back to 03-14-2020 with most recent [id number]. TECHNIQUE: Bilateral MLO and CC views were [...] Mammograms dating back to 03-14-2020 with most [id number]. TECHNIQUE: Bilateral MLO and CC views were [...] is recommended in 1 year. Mammo Location: [place] [facility], [address] [place] [address], [phone], . -------- FINAL REPORT -------- Dictated By: Raquel Goldstein Dictated Date: 08/04/2024 07:31 ET Assigned Physician: Raquel Goldstein Reviewed and Electronically Signed By: Raquel Goldstein Signed Date: 08/04/2024 07:42 ET Workstation ID: [id number] Transcribed By: Self Edit Transcribed Date: 08/04/2024 07:36 ET Radha Rico MD IMG BI PROCEDURE S Final Result * (ABNORMAL) Lipid panel with reflex to direct LDL (08/02/2024 9:39 AM EDT) Cholesterol 185 0 - 200 mg/dL LAB CHEMISTRY METHOD 08/02/2024 2:21 PM EDT [facility] Triglycerides 181(H) 0 - 150 mg/dL LAB CHEMISTRY METHOD 08/02/2024 2:21 PM EDT [facility] HDL 63 >=40 mg/dL LAB CHEMISTRY METHOD 08/02/2024 2:21 PM EDT [facility] LDL Calculated 86 0 - 100 mg/dL LAB CHEMISTRY METHOD 08/02/2024 2:21 PM EDT [facility] VLDL Cholesterol Devante 36.2 mg/dL LAB CHEMISTRY METHOD 08/02/2024 2:21 PM EDT [facility] Non HDL Chol. (LDL+VLDL) 122 <145 mg/dL LAB CHEMISTRY METHOD 08/02/2024 2:21 PM EDT [facility] Chol/HDL Ratio 2.9 0.0 - 4.4 LAB CHEMISTRY METHOD 08/02/2024 2:21 PM EDT [facility] Blood Venous blood specimen / Unknown Venipuncture / Unknown 08/02/2024 9:39 AM EDT 08/02/2024 9:39 AM EDT us Radha Rico MD LAB BLOOD ORDERA BLES Final Result [facility] [address] [place] [address], * HPV with reflex genotype (06/05/2024 1:41 PM EST) HPV Negative Negative LAB MICROBIOLOGY METHOD 06/07/2024 2:36 PM EST [facility] Brushing/Spatula Cervix uteri structure / Unknown 06/05/2024 1:41 PM EST 06/07/2024 6:37 AM EST Raina Garcia CNM LAB MOLECULAR DIAGNOSTICS ORDE RABLES Final Result Performing Organization Address [facility]/ZIP Co de Phone Number [facility] [address] [place] [address], [place] [phone] * Microalbumin creatinine urine ratio (03/27/2024 9:30 AM EST) Pathologist [facility] Creatinine, Urine 49.0 mg/dL LAB CHEMISTRY METHOD 03/27/2024 4:19 PM EST [facility] Microalb, Ur <5.0 0.0 - 29.0 mg/L LAB CHEMISTRY METHOD 03/27/2024 4:19 PM EST [facility] Microalb/Creat Ratio <10 <30 mg/g creat LAB CHEMISTRY METHOD 03/27/2024 4:19 PM EST [facility] Urine Urine specimen obtained by clean catch procedure / Unknown Non-blood Collection / Unknown 03/27/2024 9:30 AM EST 03/27/2024 9:39 AM EST Lulu RUFF LAB URINE ORDERABLES Final Re sult [facility] [address] [place] [address], [place] [phone] * Hepatitis C Screening (01/18/2024) Hepatitis C Screening abstracted us Historical Provider HEALTH MAINTENANCE Final Result * Diabetes Eye Exam (11/10/2023) Diabetes: Annual Retina Eye Exam abstracted us Historical Provider HEALTH MAINTENANCE Final Result * Depression Screening (10/22/2023) Depression Screening abstracted Historical Provider HEALTH MAINTENANCE Final Result * HIV Screening (02/05/2017) HIV Screening abstracted Historical Provider HEALTH MAINTENANCE Final Result from Last 3 Months or Most Recently Relevant to Health Maintenance Insurance MEDICAID - [place] MEDICARE Care Teams Smoke Jumper Supervisor Relationship Specialty Start Date End Date Radha Rico MD [address] [facility] [place], [place] PCP - General Internal Medicine 11/12/21
--- OUTSIDE RECORDS SUMMARY | 2025-01-19 12:38 | XMS_ITS | Clinical Summary ---
Author Organization [facility] Address [address] [place] [address] Care Team Providers Care Material Handler Loader Name Role Phone Artis Quevedo MD Primary Care Provider [phone] Allergies Active Allergy Reactions Criticality Noted Date [...] age to complete this topic Care Teams Material Handler Loader Relationship Specialty Start Date End Date Artis Quevedo MD PCP - General Internal Medicine 03/12/20
[2025-01-19 13:12] LABS: MANUAL DIFF FLAG NO
[2025-01-19 13:26] LABS: Hematocrit 37.0 % (37.0-47.0); Hemoglobin 11.8 g/dl (12.0-16.0); Imm Gran Abs Auto 0.01 X10*3/uL (0.00-0.03); Imm Gran Pct Auto 0.2 % (0.0-0.4); Lymphocytes Absolute Auto 1.1 X10*3/uL (1.2-4.9); Mean Corpuscular HGB Conc 31.9 g/dl (31.0-35.0); Mean Corpuscular Hemoglobin 25.4 pg (27.0-33.0); Mean Corpuscular Volume 79.7 fL (80.0-98.0); NRBC Abs Auto 0.000 X10*3/uL (0.0-0.012); NRBC Pct Auto 0.0 /100WBC (0.0-0.2); Platelet Count 188 X10*3/uL (160-400); Red Blood Count 4.64 X10*6/uL (4.20-5.50); White Blood Count 5.9 X10*3/uL (4.8-10.8)
[2025-01-19 18:38] LABS: Alanine Aminotransferase 23 U/L (0-31); Aspartate Amino Transferase 24 U/L (5-31); Estimated Glomerular Filt Rate > 60
== END 2025-01-19 10:54 | disposition home or self-care (01) ==
LOC: HO.HKASLDS 10:53
PROVIDERS: Visit Provider Student in an Organized Health Care Education/Training Program
DX: Z79.899 Other long term (current) drug therapy (principal)
CPT/HCPCS: 36415; 82565; 84450; 84460; 85025; 85652; 86140